=== PATIENT | female | born 1950 | race Caucasian/White ===

== ENCOUNTER → 2018-01-29 | Outpatient (CLI) | payer OTHER ==
[~2018-01-29] MED LIST: ANT25 PO; HARVONI PO; MAGN1TAB41 PO; MULT-506 PO
== END | disposition home or self-care (01) ==
LOC: C.PAPS 11:06
PROVIDERS: ATTEND Obstetrics & Gynecology
DX: Z12.4 Encounter for screening for malignant neoplasm of cervix (principal)

== ENCOUNTER → 2018-02-12 | Outpatient (CLI) | payer OTHER ==
--- NOTE | 2018-02-13 07:56 | MAMMOGRAPHY REPORT ---
BILATERAL DIGITAL SCREENING MAMMOGRAM TOMOSYNTHESIS WITH CAD: 02/12/2018 CLINICAL HISTORY: Routine screening. Patient has no complaints. TECHNIQUE: Breast tomosynthesis in addition to standard 2D mammography was performed. Current study was also evaluated with a Computer Aided Detection (CAD) system. COMPARISON: Comparison is made to exams dated: 11/23/2014 mammogram, 11/17/2013 mammogram, 11/11/2012 ma mmogram, 11/06/2011 mammogram, 11/09/2010 mammogram, and 11/09/2010 ultrasound - [facility] er. BREAST COMPOSITION: The tissue of both breasts is heterogeneously dense, which may obscure small mas ses. FINDINGS: There are scattered stable benign-appearing round, punctate and rodlike calcifications in t he breasts. No suspicious mass, architectural distortion or cluster of suspicious microcalcification s is seen. IMPRESSION: ACR BI-RADS CATEGORY 1: NEGATIVE There is no mammographic evidence of malignancy. A 1 year screening mammogram is recommended. The pa tient will receive written notification of the results. Approximately 10% of breast cancers are not detected with mammography. A negative mammographic report should not delay biopsy if a clinically suggestive mass is present. Leti Foley M.D. ay/:02/12/2018 15:39:37 Heat Seal Operator: Christina AMADOR(Sherin)(Antwan), [facility] letter sent: Normal 1/2 BI-RADS Code: ACR BI-RADS Category 1: Negative
== END | disposition home or self-care (01) ==
LOC: C.MAMM 14:06
PROVIDERS: ATTEND Family Medicine
DX: Z12.31 Encounter for screening mammogram for malignant neoplasm of breast (principal)

== ENCOUNTER 2025-01-06 13:07 | Inpatient (IN) ==
--- NOTE | 2025-01-06 13:44 | XRay Report ---
XR chest 1V not portable CLINICAL HISTORY: shortness of breath COMPARISON STUDY: 06/30/2024 FINDINGS: Heart size and pulmonary vasculature are normal. No effusion, consolidation, or pneumothora x. Stable scoliosis. IMPRESSION: No pneumonia seen. ACT 112: Negative or not required by law. Electronically signed by: Medardo Figueroa M.D. 01/06/2025 1:42 PM
[2025-01-06 13:48] LABS: Basophils # (auto) 0.05 K/uL (0.00-0.20); Basophils % (auto) 0.6 %; Hematocrit (blood only) 39.2 % (37.0-47.0); Hemoglobin 13.8 g/dl (12.0-16.0); Immature Granulocytes # (auto) 0.02 K/uL (0.01-0.20); Immature Granulocytes % (auto) 0.3 %; Lymphocytes # (auto) 1.14 K/uL (1.20-3.40); Lymphocytes % (auto) 14.5 %; Mean Corpuscular Hgb Conc 35.2 g/dL (32.0-36.0); Mean Corpuscular Volume 96.6 fL (80.0-100.0); Mean Platelet Volume 8.4 fL (9.4-12.4); Monocytes % (auto) 11.4 %; Neutrophils # (auto) 5.76 K/uL (1.40-6.50); Neutrophils % (auto) 73.2 %; Platelet Count 234 K/uL (130-400); RDW Coefficient of Variation 12.8 % (11.5-14.5); RDW Standard Deviation 45.8 fL (36.4-46.3); Red Blood Count 4.06 M/uL (4.20-5.40); White Blood Count 7.87 K/ul (4.8-10.8)
[2025-01-06 14:08] LABS: Albumin Globulin Ratio 1.5 (0.9-2); Albumin Level 4.3 gm/dl (3.4-5.0); BUN Creatinine Ratio 39.5 (10-20); Bilirubin,Total 0.8 mg/dl (0.2-1.0); Calcium 10.5 mg/dl (8.6-10.3); Creatinine Clr Calc Pharmacy 50.7 ml/min; Globulin 2.9 gm/dl (2.5-4.0); Potassium 3.6 mmol/L (3.5-5.1); Total Protein 7.2 gm/dl (6.0-8.3)
[2025-01-06 15:13] LABS: Troponin I High Sensitivity 256.7 pg/ml (0-14)
[2025-01-06 15:20] LABS: Base Excess VBG 6.6 mEq/L; HCO3 VBG 31 mmol/L; Oxygen Saturation VBG < 60.0 %; PCO2 VBG 44 mmHg (38-50); PO2 VBG 26 mmHg; pH VBG 7.46 (7.36-7.41)
[2025-01-06 15:30] LABS: Thyroid Stimulating Hormone 2.232 uIu/ml (0.300-4.500)
[2025-01-06] MEDS: SODIUM CHLORIDE 0.9% 1,000 ML IV ONE (15:35)
[2025-01-06 15:53] LABS: INR 0.9 (0.9-1.1); Partial Thromboplastin Ratio 0.9; Partial Thromboplastin Time 23 Seconds (21-31); Prothrombin Time 10.1 Seconds (9.0-12.0)
[2025-01-06 15:55] LABS: D Dimer 2270 ug/L FEU (0-500)
[2025-01-06] MEDS: OPTIRAY 320 125ml IV ONE (16:10)
--- NOTE | 2025-01-06 16:19 | CT Scan Report ---
EXAM: CT Head Without Intravenous Contrast INDICATION: Lethargic. Pain. Confusion. TECHNIQUE: Axial computed tomography images of the head/brain without intravenous contrast. Sagittal and/or coronal reformats are provided. Sagittal and coronal reformatted images were created and reviewed. This CT exam was performed using one or more of the following dose reduction techniques: automated exposure control, adjustment of the mA and/or kV according to patient size, and/or use of iterative reconstruction technique. COMPARISON: No relevant prior studies available. FINDINGS: Limitations: None. Brain and extra-axial spaces: There is age appropriate cortical atrophy and chronic ischemic periventricular white matter hypodensity. No acute infarct, hemorrhage or mass noted. Bones/joints: No acute changes. Soft tissues: No significant abnormality noted. Vasculature: No acute abnormality noted. Sinuses: No layering fluid in the visualized portions of the paranasal sinuses. Mastoid air cells: No mastoid effusion. Orbits: No significant abnormality noted. IMPRESSION: Cerebral atrophy. No acute changes. ACT 112: N/A Electronically signed by Rosa M Horton 01-06-2025 4:19 PM
[2025-01-06 16:28] LABS: Adenovirus PCR Not Detected (NotDetected); Bordetella parapertussis PCR Not Detected (NotDetected); Bordetella pertussis PCR Not Detected (NotDetected); Chlamydia pneumoniae PCR Not Detected (NotDetected); Coronavirus 229E PCR Not Detected (NotDetected); Coronavirus CoV-2 (COVID19)PCR Not Detected (NotDetected); Coronavirus HKU1 PCR Not Detected (NotDetected); Coronavirus NL63 PCR Not Detected (NotDetected); Coronavirus OC43PCR Not Detected (NotDetected); Human Metapneumovirus PCR Not Detected (NotDetected); Influenza A PCR Not Detected (NotDetected); Influenza B PCR Not Detected (NotDetected); Mycoplasma pneumoniae PCR Not Detected (NotDetected); Parainfluenza Virus 1 PCR Not Detected (NotDetected); Parainfluenza Virus 2 PCR Not Detected (NotDetected); Parainfluenza Virus 3 PCR Not Detected (NotDetected); Parainfluenza Virus 4 PCR Not Detected (NotDetected); Respiratory Syncytial VirusPCR Not Detected (NotDetected); Rhinovirus/Enterovirus PCR Not Detected (NotDetected)
--- NOTE | 2025-01-06 16:34 | CT Scan Report ---
EXAM: CT Angiography Chest With Intravenous Contrast INDICATION: Lethargic. Bilateral leg and right back pain. TECHNIQUE: Axial computed tomographic angiography images of the chest with intravenous contrast. Sagittal and coronal reformatted images were created and reviewed. This CT exam was performed using one or more of the following dose reduction techniques: automated exposure control, adjustment of the mA and/or kV according to patient size, and/or use of iterative reconstruction technique. MIP reconstructed images were created and reviewed. COMPARISON: 07/28/2024 FINDINGS: Pulmonary arteries: No abnormality noted. No pulmonary embolism. Aorta: The ascending aorta is dilated to 4.1 cm. The descending aorta is moderately ectatic. Scattered calcific plaque noted. No dissection. Lungs and pleural spaces: Mild scattered atelectasis noted. No confluent consolidation. No significant effusion. No pneumothorax. Heart: Stable cardiomegaly with left ventricular hypertrophy. No right heart strain. Stable small pericardial effusion. Bones/joints: Degenerative changes noted in the scoliotic spine. No acute osseous abnormality noted. Soft tissues: No abnormality noted. Lymph nodes: No abnormality noted. No enlarged lymph nodes. IMPRESSION: 1. No acute intrathoracic abnormality. 2. 4.1 cm dilatation of the ascending aorta without dissection. Appearance stable. ACT 112: N/A Electronically signed by Rosa M Horton 01-06-2025 4:33 PM
--- NOTE | 2025-01-06 16:38 | CT Scan Report ---
EXAM: CT Abdomen and Pelvis With Intravenous Contrast INDICATION: Lethargy. Leg pain. TECHNIQUE: Axial computed tomography images of the abdomen and pelvis with intravenous contrast. Sagittal and coronal reformatted images were created and reviewed. This CT exam was performed using one or more of the following dose reduction techniques: automated exposure control, adjustment of the mA and/or kV according to patient size, and/or use of iterative reconstruction technique. CONTRAST: 119ml of Optiray 320 was administered intravenously. COMPARISON: No relevant prior studies available. FINDINGS: Limitations: None. Lung bases: No abnormality noted. Pleural space: No visualized pleural effusion or pneumothorax. Heart: No abnormality noted. Mediastinum: No abnormality noted. ABDOMEN: Liver: No abnormality noted. Gallbladder and bile ducts: Small gallstones present. No ductal dilatation or stone. Pancreas: Homogeneous enhancement. No mass, inflammation or ductal dilation. Spleen: No significant abnormality noted. Adrenals: No significant abnormality noted. Kidneys and ureters: Normal enhancement. No mass, hydronephrosis or visualized stone. Stomach and bowel: Moderate amounts of stool throughout the colon. There is minimal small bowel stasis with some layering fluid and fecalized material. Scattered colonic diverticulosis noted. No obstruction, thickening or inflammatory process noted. PELVIS: Appendix: No findings to suggest acute appendicitis. Bladder: No filling defects to suggest mass or large stone. No inflammation. Reproductive: No abnormalities noted. ABDOMEN and PELVIS: Intraperitoneal space: No free air. No significant fluid collection. Bones/joints: Scoliotic degenerative spine. Soft tissues: There is a small paraesophageal hernia. Vasculature: Atherosclerotic calcification of the aorta and branches. No aneurysm. Lymph nodes: No pathologically enlarged lymph nodes. IMPRESSION: 1. Moderate amounts of colonic stool and scattered diverticulosis. No acute abnormality. 2. Cholelithiasis. ACT 112: N/A Electronically signed by Rosa M Horton 01-06-2025 4:38 PM
[2025-01-06] MEDS: SODIUM CHLORIDE 0.9% 1,000 ML IV SCH ×2 (16:49→21:40)
--- NOTE | 2025-01-06 17:45 | Emergency Department Note ---
History of Present Illness General Chief complaint: Illness Stated complaint: CRAMPS, ZOE HORSE, BACK PAIN Time Seen by Provider: 01/06/25 14:41 History of Present Illness Provider complaint: Illness Maximum Pain Intensity: 10 74-year-old female presents emergency department for illness. Patient states she fell asleep on Saturday and then woke up on Saturday. Patient reports that she did not mean to do this. She reports that since then she has been having myalgias weakness and difficulty breathing. She denies any melena hematochezia. No hemoptysis. No chest pain. No abdominal pain. Home Medications Medication Instructions Recorded Confirmed Type alendronate 70 mg tablet 70 mg PO WK 01/06/25 01/06/25 History irbesartan 150 mg tablet 150 mg PO DAILY 01/06/25 01/06/25 History Allergies Allergy/AdvReac Type Severity Reaction Status Date / Time codeine AdvReac Unknown CONSTIPATIO Verified 01/06/25 17:07 N Past Med/Surg History Problem List (Updated 01/06/25 @ 17:45 by Chance Avina MD) Elevated troponin (Acute) Rhabdomyolysis (Acute) Medical History No pertinent family history HTN (hypertension) Surgical History No pertinent past surgical history Social History Smoking Status: Former smoker Preferred Language: Setswana Feels Safe at Home: Yes Physical Exam Vital Signs Vital Signs - 24 hr 01/06/25 13:12 01/06/25 14:58 01/06/25 15:07 Temperature 37.1 C Temperature Source Temporal Artery Scan Pulse Rate 83 75 Pulse Rate [Apical] 62 Respiratory Rate 20 18 Respiratory Effort / Characteristics Non-Labored Spontaneous Non-Labored Respiratory Depth Normal Normal Respiratory Pattern Regular Regular Blood Pressure 120/79 Blood Pressure [Left Arm] 153/88 H Blood Pressure Mean 92 Blood Pressure Mean [Left Arm] 109 Blood Pressure Position [Left Arm] Sitting Pulse Oximetry 98 98 Oxygen Delivery Method Room Air Room Air Sepsis Recent Fever Within 48 Hours No Sepsis New/Unexplained Change in Mental Status N/A Sepsis Action Taken by Nursing No Action Required 01/06/25 17:12 Temperature Temperature Source Pulse Rate Pulse Rate [Apical] 74 Respiratory Rate 18 Respiratory Effort / Characteristics Respiratory Depth Normal Respiratory Pattern Blood Pressure Blood Pressure [Left Arm] 140/74 Blood Pressure Mean Blood Pressure Mean [Left Arm] 96 Blood Pressure Position [Left Arm] Pulse Oximetry 97 Oxygen Delivery Method Room Air Sepsis Recent Fever Within 48 Hours Sepsis New/Unexplained Change in Mental Status Sepsis Action Taken by Nursing Physical Exam GENERAL: oriented to person, place, and time. appears well-developed and well- nourished. HENT: Exam performed. - Head: Normocephalic and atraumatic. EYES: Conjunctivae and EOM are normal. Right eye exhibits no discharge. Left eye exhibits no discharge. No scleral icterus. NECK: Normal range of motion. Neck supple. No JVD present. CV: Normal rate, regular rhythm, normal heart sounds and intact distal pulses. There is no peripheral edema. Palpable radial pulses bue. PULM/CHEST: Effort normal and breath sounds normal. No respiratory distress. No stridor. no wheezes. no rales. ABD: The abdomen is soft. There is no tenderness. NEURO: Motor and sensation grossly intact. SKIN: Skin is warm and dry. He is not diaphoretic. PSYCH: normal mood and affect. Behavior is normal. Judgment and thought content normal. Course Course 1441: The patient was evaluated in room B7. A complete history and physical exam was performed Cardiac monitoring: An order was placed for continuous cardiac monitoring. The monitor shows a rate of 70 with sinus rhythm interpreted by ut 1555: Vital signs stable.Labs show white blood cell count of 7.87 hemoglobin 13.8 platelet count 234. D-dimer 2270. VBG unremarkable. AST 76 ALT 61 total creatinine kinase 1665 ammonia 12. High-sensitivity troponin 256.7. Patient not reporting any chest pain. Will obtain CT imaging. IV fluids started on the patient. 1640: Vital signs stable. Imaging shows a stable thoracic aortic aneurysm with no dissection. Otherwise unremarkable. Patient will be admitted to the [facility] hospitalist team. Administered Medications Sodium Chloride (Nss) 1,000 mls @ 125 mls/hr IV .Q8H MERCEDES Stop: 01/07/25 15:29 Last Admin: 01/06/25 16:49 Dose: 125 mls/hr Documented By: [facility] Discontinued Medications Sodium Chloride (Nss) 1,000 mls @ 999 mls/hr IV .Q1H1M ONE Stop: 01/06/25 16:26 Last Infusion: 01/06/25 17:05 Dose: Infused Documented By: Admin: 01/06/25 15:35 Dose: 999 mls/hr Documented By: MARIUSZ Ioversol (Optiray 320 125ml) 119 ml IV ONCE ONE Stop: 01/06/25 16:10 Last Admin: 01/06/25 16:10 Dose: 119 ml Documented By: BRADEN Medical Decision Making Laboratory Data Attestation: I reviewed the patient's lab results. 01/06/25 13:27 01/06/25 13:27 Lab Results 01/06/25 01/06/25 01/06/25 Range/Units 13:27 15:09 15:10 WBC 7.87 (4.8-10.8) K/ul RBC 4.06 L (4.20-5.40) M/uL Hgb 13.8 (12.0-16.0) g/dl Hct 39.2 (37.0-47.0) % MCV 96.6 (80.0-100.0) fL MCH 34.0 (25.0-34.0) pg MCHC 35.2 (32.0-36.0) g/dL RDW Std Deviation 45.8 (36.4-46.3) fL RDW Coeff of Laurie 12.8 (11.5-14.5) % Plt Count 234 (130-400) K/uL MPV 8.4 L (9.4-12.4) fL Immature Gran % (Auto) 0.3 % Neut % (Auto) 73.2 % Lymph % (Auto) 14.5 % Gladwin % (Auto) 11.4 % Eos % (Auto) 0.0 % Baso % (Auto) 0.6 % Neut # (Auto) 5.76 (1.40-6.50) K/uL Lymph # (Auto) 1.14 L (1.20-3.40) K/uL Gladwin # (Auto) 0.90 H (0.11-0.59) K/uL Eos # (Auto) 0.00 (0.00-0.50) K/uL Baso # (Auto) 0.05 (0.00-0.20) K/uL Immature Gran # (Auto) 0.02 (0.01-0.20) K/uL PT 10.1 (9.0-12.0) Seconds INR 0.9 (0.9-1.1) APTT 23 (21-31) Seconds PTT Ratio 0.9 D-Dimer Cancelled 2270 H* VBG pH 7.46 H (7.36-7.41) VBG pCO2 44 (38-50) mmHg VBG pO2 26 mmHg VBG HCO3 31 mmol/L VBG O2 Saturation < 60.0 % VBG Base Excess 6.6 mEq/L Sodium 137 (136-145) mmol/L Potassium 3.6 (3.5-5.1) mmol/L Chloride 103 (98-107) mmol/L Carbon Dioxide 27 (21-32) mmol/L Anion Gap 7 (3-11) BUN 34 H (6-23) mg/dl Creatinine 0.86 (0.6-1.2) mg/dl Est Cr Clr Drug Dosing 50.7 ml/min eGFR 69.97 BUN/Creatinine Ratio 39.5 H (10-20) Glucose 104 H (70-99(Fasting)) mg/dl Calcium 10.5 H (8.6-10.3) mg/dl Magnesium 2.0 (1.7-2.4) mg/dl Total Bilirubin 0.8 (0.2-1.0) mg/dl AST 76 H (13-39) U/L ALT 61 H (7-52) U/L Alkaline Phosphatase 47 (34-104) U/L Ammonia 12.0 L (18-72) umol/L Total Creatine Kinase 1665 H (26-192) U/L Troponin I High Sens 256.7 H* 237.8 H* (0-14) pg/ml Total Protein 7.2 (6.0-8.3) gm/dl Albumin 4.3 (3.4-5.0) gm/dl Globulin 2.9 (2.5-4.0) gm/dl Albumin/Globulin Ratio 1.5 (0.9-2) Lipase 35 (11-82) U/L TSH 2.232 (0.300-4.500) uIu/ml Adenovirus (PCR) Not Detected (NotDetected) B. pertussis DNA (PCR) Not Detected (NotDetected) B.parapertussis DNA PCR Not Detected (NotDetected) C. pneumoniae DNA (PCR) Not Detected (NotDetected) Coronavirus OC43 (PCR) Not Detected (NotDetected) Coronavirus HKU1 (PCR) Not Detected (NotDetected) Coronavirus 229E (PCR) Not Detected (NotDetected) SARS-CoV-2 (PCR) Not Detected (NotDetected) Coronavirus NL63 (PCR) Not Detected (NotDetected) Human Metapneumovir PCR Not Detected (NotDetected) Influenza Type A (PCR) Not Detected (NotDetected) Influenza Type B (PCR) Not Detected (NotDetected) M. pneumoniae (PCR) Not Detected (NotDetected) Parainfluenza 1 (PCR) Not Detected (NotDetected) Parainfluenza 2 (PCR) Not Detected (NotDetected) Parainfluenza 3 (PCR) Not Detected (NotDetected) Parainfluenza 4 (PCR) Not Detected (NotDetected) RSV (PCR) Not Detected (NotDetected) Entero/Rhino (PCR) Not Detected (NotDetected) Imaging Data Attestation: I personally reviewed and interpreted this imaging study as follows: My Impression: Chest x-ray negative. Airway clear. No pneumothorax. No consolidation. No cardiomegaly or cephalization.. No free air under the diaphragm. No fractures of the skeletal structures. Radiologist's Impression: Chest X-Ray 01/06/25 13:21 XR chest 1V not portable CLINICAL HISTORY: shortness of breath COMPARISON STUDY: 06/30/2024 FINDINGS: Heart size and pulmonary vasculature are normal. No effusion, consolidation, or pneumothorax. Stable scoliosis. IMPRESSION: No pneumonia seen. ACT 112: Negative or not required by law. Electronically signed by: Medardo Figueroa M.D. 01/06/2025 1:42 PM Abdomen/Pelvis CT 01/06/25 14:59 EXAM: CT Abdomen and Pelvis With Intravenous Contrast INDICATION: Lethargy. Leg pain. TECHNIQUE: Axial computed tomography images of the abdomen and pelvis with intravenous contrast. Sagittal and coronal reformatted images were created and reviewed. This CT exam was performed using one or more of the following dose reduction techniques: automated exposure control, adjustment of the mA and/or kV according to patient size, and/or use of iterative reconstruction technique. CONTRAST: 119ml of Optiray 320 was administered intravenously. COMPARISON: No relevant prior studies available. FINDINGS: Limitations: None. Lung bases: No abnormality noted. Pleural space: No visualized pleural effusion or pneumothorax. Heart: No abnormality noted. Mediastinum: No abnormality noted. ABDOMEN: Liver: No abnormality noted. Gallbladder and bile ducts: Small gallstones present. No ductal dilatation or stone. Pancreas: Homogeneous enhancement. No mass, inflammation or ductal dilation. Spleen: No significant abnormality noted. Adrenals: No significant abnormality noted. Kidneys and ureters: Normal enhancement. No mass, hydronephrosis or visualized stone. Stomach and bowel: Moderate amounts of stool throughout the colon. There is minimal small bowel stasis with some layering fluid and fecalized material. Scattered colonic diverticulosis noted. No obstruction, thickening or inflammatory process noted. PELVIS: Appendix: No findings to suggest acute appendicitis. Bladder: No filling defects to suggest mass or large stone. No inflammation. Reproductive: No abnormalities noted. ABDOMEN and PELVIS: Intraperitoneal space: No free air. No significant fluid collection. Bones/joints: Scoliotic degenerative spine. Soft tissues: There is a small paraesophageal hernia. Vasculature: Atherosclerotic calcification of the aorta and branches. No aneurysm. Lymph nodes: No pathologically enlarged lymph nodes. IMPRESSION: 1. Moderate amounts of colonic stool and scattered diverticulosis. No acute abnormality. 2. Cholelithiasis. ACT 112: N/A Electronically signed by Rosa M Horton 01-06-2025 4:[address] 01/06/25 14:59 EXAM: CT Head Without Intravenous Contrast INDICATION: Lethargic. Pain. Confusion. TECHNIQUE: Axial computed tomography images of the head/brain without intravenous contrast. Sagittal and/or coronal reformats are provided. Sagittal and coronal reformatted images were created and reviewed. This CT exam was performed using one or more of the following dose reduction techniques: automated exposure control, adjustment of the mA and/or kV according to patient size, and/or use of iterative reconstruction technique. COMPARISON: No relevant prior studies available. FINDINGS: Limitations: None. Brain and extra-axial spaces: There is age appropriate cortical atrophy and chronic ischemic periventricular white matter hypodensity. No acute infarct, hemorrhage or mass noted. Bones/joints: No acute changes. Soft tissues: No significant abnormality noted. Vasculature: No acute abnormality noted. Sinuses: No layering fluid in the visualized portions of the paranasal sinuses. Mastoid air cells: No mastoid effusion. Orbits: No significant abnormality noted. IMPRESSION: Cerebral atrophy. No acute changes. ACT 112: N/A Electronically signed by Rosa M Horton 01-06-2025 4:19 PM Chest CTA 01/06/25 15:55 EXAM: CT Angiography Chest With Intravenous Contrast INDICATION: Lethargic. Bilateral leg and right back pain. TECHNIQUE: Axial computed tomographic angiography images of the chest with intravenous contrast. Sagittal and coronal reformatted images were created and reviewed. This CT exam was performed using one or more of the following dose reduction techniques: automated exposure control, adjustment of the mA and/or kV according to patient size, and/or use of iterative reconstruction technique. MIP reconstructed images were created and reviewed. COMPARISON: 07/28/2024 FINDINGS: Pulmonary arteries: No abnormality noted. No pulmonary embolism. Aorta: The ascending aorta is dilated to 4.1 cm. The descending aorta is moderately ectatic. Scattered calcific plaque noted. No dissection. Lungs and pleural spaces: Mild scattered atelectasis noted. No confluent consolidation. No significant effusion. No pneumothorax. Heart: Stable cardiomegaly with left ventricular hypertrophy. No right heart strain. Stable small pericardial effusion. Bones/joints: Degenerative changes noted in the scoliotic spine. No acute osseous abnormality noted. Soft tissues: No abnormality noted. Lymph nodes: No abnormality noted. No enlarged lymph nodes. IMPRESSION: 1. No acute intrathoracic abnormality. 2. 4.1 cm dilatation of the ascending aorta without dissection. Appearance stable. ACT 112: N/A Electronically signed by Rosa M Horton 01-06-2025 4:33 PM ECG Data Attestation: I personally reviewed and interpreted this ECG as follows: Rate (beats per minute): 68 Rhythm: + normal sinus ECG Intervals/blocks: + Normal QRS, + Normal TX and + Normal QT-c ECG ST segments: + Normal ST segments [facility] Narrative 1441: The patient was evaluated in room B7. A complete history and physical exam was performed Cardiac monitoring: An order was placed for continuous cardiac monitoring. The monitor shows a rate of 70 with sinus rhythm interpreted by me 1555: Vital signs stable.Labs show white blood cell count of 7.87 hemoglobin 13.8 platelet count 234. D-dimer 2270. VBG unremarkable. AST 76 ALT 61 total creatinine kinase 1665 ammonia 12. High-sensitivity troponin 256.7. Patient not reporting any chest pain. Will obtain CT imaging. IV fluids started on the patient. 1640: Vital signs stable. Imaging shows a stable thoracic aortic aneurysm with no dissection. Otherwise unremarkable. [facility] & Plan Rhabdomyolysis, Elevated troponin Discharge Plan Visit Data Chief Complaint: Illness Stated Complaint: CRAMPS, ZOE HORSE, BACK PAIN ED Provider: Chance Avina Discharge Problem: Rhabdomyolysis, Elevated troponin Patient Disposition: Admitted As Inpatient Forms Stand Alone Forms: My [facility] Prescriptions Prescriptions: No Action alendronate 70 mg tablet 70 mg PO WK irbesartan 150 mg tablet 150 mg PO DAILY Referrals Referrals: Vitor Jiang DO [Primary Care Provider] -
[2025-01-06 18:03] LABS: Appearance Urine Clear (Clear); Bilirubin Urine Negative (Negative); Blood Urine 1+ (Negative); Color Urine Yellow; Glucose Urine UA Negative (Negative); Ketones Urine Trace (Negative); Leukocyte Esterase Urine Negative (Negative); Nitrite Urine Negative (Negative); Protein Urine Negative (Negative); Urobilinogen Urine Negative (Negative); pH Urine 5.5 (4.5-7.5)
[2025-01-06 18:16] LABS: Bacteria Urine None Seen (None Seen); Bacteria Urine Automated None Seen (Negative); Hyaline Casts Urine 0 /lpf (None Presnt); WBC Urine 0-5 /hpf (0-5)
[2025-01-06 18:18] LABS: Amphetamines+Metham, Urine Neg (Neg); Barbiturates, Urine Neg (Neg); Benzodiazepine, Urine Neg (Neg); Cocaine, Urine Neg (Neg); Fentanyl, Urine Neg (Neg); MDMA (Ecstacy), Urine Neg (Neg); Marijuana, Urine Pos (Neg); Methadone, Urine Neg (Neg); Opiate, Urine Neg (Neg); Phencyclidine, Urine Neg (Neg)
--- NOTE | 2025-01-06 18:29 | History & Physical Report ---
Date of Service January 06, 2025 Assessment & Plan (1) Rhabdomyolysis: (2) Elevated troponin: (3) Elevated d-dimer: (4) Cholelithiasis: Plan #Rhabdomyolysis - 2/2 to lying on bed for 3 days -CMP on admission: Na 137 K 3.6 cl_103 BUN 34 CR 0.86 AST 76 ALT 61 Alk phosp 47 -Plt : 234 - Creatine Kinase: 1665 -UA: 3-5 RBC , no wbc; Urine PH 5.5 -VBG PH 7.46 rest normal Plan -Strict I/o -Daily CK -Daily UA with PH >8 - Normal saline 200ml/hr upto 3L #Transamnitis -AST 76 ALT 61 Alk phosp 47 -2/2 to Rhabdomyolysis -will repeat labs daily # Elevated Troponin -Troponin: 237.8 -Patient denies chest pain -ECG : No acute changes -Monitor on telemetry -Troponin downgrading; Will repeat next in 6 hour #Elevated D Dimer -D dimer: 2270 - CTA: No pulmonary Embolism, 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 #Cholelithiasis -CT (A+P) shows small gallstones. No ductal dilation or stone. -Patient is asymptomatic -No intervention needed now #urine tox positive for marijuana - She takes medical marijuana since the age of 15. According to her, she was taking same formulation and same dose. Chronic conditions Hypertension: Hold Irbesartan for now Osteoporosis: Continue Alendronate Dispo: Med/Surg with telemetry Code: DNR/DNI VTE prophylaxis: encourage Ambulation History of Present Illness Primary Care Provider: DO Yashira Khan is a 74 Y O Female with PMH of Hypertension and Osteoporosis . She mentioned that she went to bed on Saturday at 10 PM and woke up on Saturday afternoon 2 PM. She live by herself at home. She mentions she was in her usual state of health before going to bed. She denies dizziness, chest pain or weakness before sleep. She woke up once but went back to sleep immediately. When she woke up she felt lightheadedness, weak ,dizzy , back pain and had bilateral leg cramps after this event. She has bruise in her right arm but she doesn't remember about how it happened.She mentioned she had bowel movement in t he commode when she woke up but she doesn't remember going to the bathroom. Patient drove to the hospital herself. She denies Chest pain, abdominal pain, nausea and vomiting . Her back is hurting. She is well oriented to time, place and person. She has been using medical marijuana since she was 15. Allergies Allergy/AdvReac Type Severity Reaction Status Date / Time codeine AdvReac Unknown CONSTIPATIO Verified 01/06/25 17:07 N Home Medications Medication Instructions Recorded Confirmed Type alendronate 70 mg tablet 70 mg PO WK 01/06/25 01/06/25 History irbesartan 150 mg tablet 150 mg PO DAILY 01/06/25 01/06/25 History Past Med/Surg History Problem List Cholelithiasis Elevated d-dimer Elevated troponin (Acute) Rhabdomyolysis (Acute) Medical History No pertinent family history HTN (hypertension) Surgical History No pertinent past surgical history Social History Smoking Status: Former smoker Tobacco Type: Cigarettes Smoking End Date: 2014; Hx Alcohol Use: Yes Alcohol type: wine Hx Substance Use: Yes Last Used Substance: Days (ago) Last Used Substance Other:: 01/01/25 Preferred Language: Nepali Communication Ability: Effective T[employer] Layout Required: No Beliefs That Will Affect Care: None Current Living Situation: Alone Other Information That Helps Us Care for You: No Feels Safe at Home: Yes Safety Concerns: Feels Safe At This Time Assistive Devices: Glasses Review of Systems Review of Systems: As per HPI Physical Exam Constitutional: WD/WN, vitals as above well developed; no acute distress Eyes: PERRL, conjunctivae normal, anicteric sclerae ENMT: external ear and nose normal, oropharynx normal Ears: no hearing impairment Neck: trachea midline, no thyromegaly trachea midline Respiratory: normal respiratory effort, lungs clear to auscultation normal respiratory effort and + respiratory distress; no labored breathing and no retractions Auscultation: lungs clear to auscultation bilaterally Cardiovascular: RRR, no murmur, no edema Rate/Rhythm: regular rate and regular rhythm Chest (Breasts): normal inspection/palpation of breasts Chest: normal inspection of chest Results & Data Results & Data Vital Signs (Past 12 Hours) Vital Signs Temp Pulse Pulse Resp BP BP Pulse Ox 01/06/25 17:12 74 18 140/74 97 01/06/25 15:07 62 18 153/88 H 98 01/06/25 14:58 75 01/06/25 13:12 37.1 C 83 20 120/79 98 O2 Del Method 01/06/25 17:12 Room Air 01/06/25 15:07 Room Air 01/06/25 14:58 01/06/25 13:12 Room Air Laboratory Results Laboratory Results WBC 7.87 K/ul (4.8-10.8) 01/06/25 13:27 RBC 4.06 M/uL (4.20-5.40) L 01/06/25 13:27 Hgb 13.8 g/dl (12.0-16.0) 01/06/25 13:27 Hct 39.2 % (37.0-47.0) 01/06/25 13:27 MCV 96.6 fL (80.0-100.0) 01/06/25 13:27 MCH 34.0 pg (25.0-34.0) 01/06/25 13:27 MCHC 35.2 g/dL (32.0-36.0) 01/06/25 13:27 RDW Std Deviation 45.8 fL (36.4-46.3) 01/06/25 13:27 RDW Coeff of Laurie 12.8 % (11.5-14.5) 01/06/25 13:27 Plt Count 234 K/uL (130-400) 01/06/25 13:27 MPV 8.4 fL (9.4-12.4) L 01/06/25 13:27 Immature Gran % (Auto) 0.3 % 01/06/25 13:27 Neut % (Auto) 73.2 % 01/06/25 13:27 Lymph % (Auto) 14.5 % 01/06/25 13:27 [place] % (Auto) 11.4 % 01/06/25 13:27 Eos % (Auto) 0.0 % 01/06/25 13:27 Baso % (Auto) 0.6 % 01/06/25 13:27 Neut # (Auto) 5.76 K/uL (1.40-6.50) 01/06/25 13:27 Lymph # (Auto) 1.14 K/uL (1.20-3.40) L 01/06/25 13:27 [place]estone # (Auto) 0.90 K/uL (0.11-0.59) H 01/06/25 13:27 Eos # (Auto) 0.00 K/uL (0.00-0.50) 01/06/25 13:27 Baso # (Auto) 0.05 K/uL (0.00-0.20) 01/06/25 13:27 Immature Gran # (Auto) 0.02 K/uL (0.01-0.20) 01/06/25 13:27 PT 10.1 Seconds (9.0-12.0) 01/06/25 15:09 INR 0.9 (0.9-1.1) 01/06/25 15:09 APTT 23 Seconds (21-31) 01/06/25 15:09 PTT Ratio 0.9 01/06/25 15:09 D-Dimer 2270 ug/L FEU (0-500) H* 01/06/25 15:09 VBG pH 7.46 (7.36-7.41) H 01/06/25 15:09 VBG pCO2 44 mmHg (38-50) 01/06/25 15:09 VBG pO2 26 mmHg 01/06/25 15:09 VBG HCO3 31 mmol/L 01/06/25 15:09 VBG O2 Saturation < 60.0 % 01/06/25 15:09 VBG Base Excess 6.6 mEq/L 01/06/25 15:09 Sodium 137 mmol/L (136-145) 01/06/25 13:27 Potassium 3.6 mmol/L (3.5-5.1) 01/06/25 13:27 Chloride 103 mmol/L (98-107) 01/06/25 13:27 Carbon Dioxide 27 mmol/L (21-32) 01/06/25 13:27 Anion Gap 7 (3-11) 01/06/25 13:27 BUN 34 mg/dl (6-23) H 01/06/25 13:27 Creatinine 0.86 mg/dl (0.6-1.2) 01/06/25 13:27 Est Cr Clr Drug Dosing 50.7 ml/min 01/06/25 13:27 eGFR 69.97 01/06/25 13:27 BUN/Creatinine Ratio 39.5 (10-20) H 01/06/25 13:27 Glucose 104 mg/dl (70-99(Fasting)) H 01/06/25 13:27 Calcium 10.5 mg/dl (8.6-10.3) H 01/06/25 13:27 Magnesium 2.0 mg/dl (1.7-2.4) 01/06/25 13:27 Total Bilirubin 0.8 mg/dl (0.2-1.0) 01/06/25 13:27 AST 76 U/L (13-39) H 01/06/25 13:27 ALT 61 U/L (7-52) H 01/06/25 13:27 Alkaline Phosphatase 47 U/L (34-104) 01/06/25 13:27 Ammonia 12.0 umol/L (18-72) L 01/06/25 15:09 Total Creatine Kinase 1665 U/L (26-192) H 01/06/25 13:27 Troponin I High Sens 277.4 pg/ml (0-14) H* 01/06/25 20:53 Total Protein 7.2 gm/dl (6.0-8.3) 01/06/25 13:27 Albumin 4.3 gm/dl (3.4-5.0) 01/06/25 13:27 Globulin 2.9 gm/dl (2.5-4.0) 01/06/25 13:27 Albumin/Globulin Ratio 1.5 (0.9-2) 01/06/25 13:27 Lipase 35 U/L (11-82) 01/06/25 13:27 TSH 2.232 uIu/ml (0.300-4.500) 01/06/25 13:27 Urine Color Yellow 01/06/25 Unknown Urine Appearance Clear (Clear) 01/06/25 Unknown Urine pH 5.5 (4.5-7.5) 01/06/25 Unknown Ur Specific [place] 1.010 (1.000-1.030) 01/06/25 Unknown Urine Protein Negative (Negative) 01/06/25 Unknown Urine Glucose (UA) Negative (Negative) 01/06/25 Unknown Urine Ketones Trace (Negative) H 01/06/25 Unknown Urine Blood 1+ (Negative) H 01/06/25 Unknown Urine Nitrite Negative (Negative) 01/06/25 Unknown Urine Bilirubin Negative (Negative) 01/06/25 Unknown Urine Urobilinogen Negative (Negative) 01/06/25 Unknown Ur Leukocyte Esterase Negative (Negative) 01/06/25 Unknown Urine Bacteria (Auto) None Seen (Negative) 01/06/25 Unknown Urine RBC 3-5 /hpf (0-2) H 01/06/25 Unknown Urine WBC 0-5 /hpf (0-5) 01/06/25 Unknown Ur Epithelial Cells 3-5 /hpf (0-2) H 01/06/25 Unknown Urine Bacteria None Seen (None Seen) 01/06/25 Unknown Hyaline Casts 0 /lpf (None Presnt) 01/06/25 Unknown Urine Opiates Screen Neg (Neg) 01/06/25 Unknown Ur Methadone, Qual Neg (Neg) 01/06/25 Unknown Urine Fentanyl Screen Neg (Neg) 01/06/25 Unknown Urine Barbiturates Neg (Neg) 01/06/25 Unknown Ur Phencyclidine (PCP) Neg (Neg) 01/06/25 Unknown U Amphetamin/Meth Scrn Neg (Neg) 01/06/25 Unknown MDMA (Ecstasy) Screen Neg (Neg) 01/06/25 Unknown U Benzodiazepines Scrn Neg (Neg) 01/06/25 Unknown Ur Cocaine Metabolite Neg (Neg) 01/06/25 Unknown U Marijuana (THC) Screen Pos (Neg) H 01/06/25 Unknown Adenovirus (PCR) Not Detected (NotDetected) 01/06/25 15:10 B. pertussis DNA (PCR) Not Detected (NotDetected) 01/06/25 15:10 B.parapertussis DNA PCR Not Detected (NotDetected) 01/06/25 15:10 C. pneumoniae DNA (PCR) Not Detected (NotDetected) 01/06/25 15:10 Coronavirus OC43 (PCR) Not Detected (NotDetected) 01/06/25 15:10 Coronavirus HKU1 (PCR) Not Detected (NotDetected) 01/06/25 15:10 Coronavirus 229E (PCR) Not Detected (NotDetected) 01/06/25 15:10 SARS-CoV-2 (PCR) Not Detected (NotDetected) 01/06/25 15:10 Coronavirus NL63 (PCR) Not Detected (NotDetected) 01/06/25 15:10 Human Metapneumovir PCR Not Detected (NotDetected) 01/06/25 15:10 Influenza Type A (PCR) Not Detected (NotDetected) 01/06/25 15:10 Influenza Type B (PCR) Not Detected (NotDetected) 01/06/25 15:10 M. pneumoniae (PCR) Not Detected (NotDetected) 01/06/25 15:10 Parainfluenza 1 (PCR) Not Detected (NotDetected) 01/06/25 15:10 Parainfluenza 2 (PCR) Not Detected (NotDetected) 01/06/25 15:10 Parainfluenza 3 (PCR) Not Detected (NotDetected) 01/06/25 15:10 Parainfluenza 4 (PCR) Not Detected (NotDetected) 01/06/25 15:10 RSV (PCR) Not Detected (NotDetected) 01/06/25 15:10 Entero/Rhino (PCR) Not Detected (NotDetected) 01/06/25 15:10 Impressions Chest X-Ray 01/06/25 13:21 XR chest 1V not portable CLINICAL HISTORY: shortness of breath COMPARISON STUDY: 06/30/2024 FINDINGS: Heart size and pulmonary vasculature are normal. No effusion, consolidation, or pneumothorax. Stable scoliosis. IMPRESSION: No pneumonia seen. ACT 112: Negative or not required by law. Electronically signed by: Medardo Figueroa M.D. 01/06/2025 1:42 PM Abdomen/Pelvis CT 01/06/25 14:59 EXAM: CT Abdomen and Pelvis With Intravenous Contrast INDICATION: Lethargy. Leg pain. TECHNIQUE: Axial computed tomography images of the abdomen and pelvis with intravenous contrast. Sagittal and coronal reformatted images were created and reviewed. This CT exam was performed using one or more of the following dose reduction techniques: automated exposure control, adjustment of the mA and/or kV according to patient size, and/or use of iterative reconstruction technique. CONTRAST: 119ml of Optiray 320 was administered intravenously. COMPARISON: No relevant prior studies available. FINDINGS: Limitations: None. Lung bases: No abnormality noted. Pleural space: No visualized pleural effusion or pneumothorax. Heart: No abnormality noted. Mediastinum: No abnormality noted. ABDOMEN: Liver: No abnormality noted. Gallbladder and bile ducts: Small gallstones present. No ductal dilatation or stone. Pancreas: Homogeneous enhancement. No mass, inflammation or ductal dilation. Spleen: No significant abnormality noted. Adrenals: No significant abnormality noted. Kidneys and ureters: Normal enhancement. No mass, hydronephrosis or visualized stone. Stomach and bowel: Moderate amounts of stool throughout the colon. There is minimal small bowel stasis with some layering fluid and fecalized material. Scattered colonic diverticulosis noted. No obstruction, thickening or inflammatory process noted. PELVIS: Appendix: No findings to suggest acute appendicitis. Bladder: No filling defects to suggest mass or large stone. No inflammation. Reproductive: No abnormalities noted. ABDOMEN and PELVIS: Intraperitoneal space: No free air. No significant fluid collection. Bones/joints: Scoliotic degenerative spine. Soft tissues: There is a small paraesophageal hernia. Vasculature: Atherosclerotic calcification of the aorta and branches. No aneurysm. Lymph nodes: No pathologically enlarged lymph nodes. IMPRESSION: 1. Moderate amounts of colonic stool and scattered diverticulosis. No acute abnormality. 2. Cholelithiasis. ACT 112: N/A Electronically signed by Rosa M Horton 01-06-2025 4:[address] 01/06/25 14:59 EXAM: CT Head Without Intravenous Contrast INDICATION: Lethargic. Pain. Confusion. TECHNIQUE: Axial computed tomography images of the head/brain without intravenous contrast. Sagittal and/or coronal reformats are provided. Sagittal and coronal reformatted images were created and reviewed. This CT exam was performed using one or more of the following dose reduction techniques: automated exposure control, adjustment of the mA and/or kV according to patient size, and/or use of iterative reconstruction technique. COMPARISON: No relevant prior studies available. FINDINGS: Limitations: None. Brain and extra-axial spaces: There is age appropriate cortical atrophy and chronic ischemic periventricular white matter hypodensity. No acute infarct, hemorrhage or mass noted. Bones/joints: No acute changes. Soft tissues: No significant abnormality noted. Vasculature: No acute abnormality noted. Sinuses: No layering fluid in the visualized portions of the paranasal sinuses. Mastoid air cells: No mastoid effusion. Orbits: No significant abnormality noted. IMPRESSION: Cerebral atrophy. No acute changes. ACT 112: N/A Electronically signed by Rosa M Horton 01-06-2025 4:19 PM Chest CTA 01/06/25 15:55 EXAM: CT Angiography Chest With Intravenous Contrast INDICATION: Lethargic. Bilateral leg and right back pain. TECHNIQUE: Axial computed tomographic angiography images of the chest with intravenous contrast. Sagittal and coronal reformatted images were created and reviewed. This CT exam was performed using one or more of the following dose reduction techniques: automated exposure control, adjustment of the mA and/or kV according to patient size, and/or use of iterative reconstruction technique. MIP reconstructed images were created and reviewed. COMPARISON: 07/28/2024 FINDINGS: Pulmonary arteries: No abnormality noted. No pulmonary embolism. Aorta: The ascending aorta is dilated to 4.1 cm. The descending aorta is moderately ectatic. Scattered calcific plaque noted. No dissection. Lungs and pleural spaces: Mild scattered atelectasis noted. No confluent consolidation. No significant effusion. No pneumothorax. Heart: Stable cardiomegaly with left ventricular hypertrophy. No right heart strain. Stable small pericardial effusion. Bones/joints: Degenerative changes noted in the scoliotic spine. No acute osseous abnormality noted. Soft tissues: No abnormality noted. Lymph nodes: No abnormality noted. No enlarged lymph nodes. IMPRESSION: 1. No acute intrathoracic abnormality. 2. 4.1 cm dilatation of the ascending aorta without dissection. Appearance stable. ACT 112: N/A Electronically signed by Rosa M Horton 01-06-2025 4:33 PM ECG Additional Comments: DICTATED BY: Sony Trujillo MD Test Reason : Blood Pressure : */* mmHG Vent. Rate : 68 BPM Atrial Rate : 68 BPM P-R Int : 144 ms QRS Dur : 84 ms QT Int : 374 ms P-R-T Axes : -19 -5 37 degrees QTcB Int : 397 ms Normal sinus rhythm Septal infarct , age undetermined Abnormal ECG When compared with ECG of 07-Jun-2015 09:24, Nonspecific T wave abnormality now evident in Anterior leads Confirmed by Sony Trujillo ([id number]) on 01/06/2025 10:17:54 PM Referred By: Confirmed By: Sony Trujillo Signed By: 01/06/25 [id number] Dictated: 01/06/25 1324 Transcribed: Absorber Operator: The status of this report is Signed. Draft = Not yet reviewed or approved by Medical Physician. Signed = Reviewed and approved by Medical Physician. Supervising Physician Co-Signing Physician Notes Patient seen and examined, chart reviewed, case discussed with Dr. Goyal and I agree with the assessment and plan as above. As above, patient went to bed on Saturday and woke up on Saturday. Has no recollection of the time spent in bed. She reports some back pain now and was initially dizzy when she woke up. She a lso reports some sores on the side of her tongue when she woke up. Otherwise no complaints, no chest pain On exam she is afebrile, HD stable Skin - no rash, no bruising HEENT - NC/AT, PERRL, EOMI, MMM, neck supple Heart - +S1/S2, regular, no m/r/g Lungs - CTA, no rales/rhonchi/wheezes Abd - soft, NT/ND Ext - warm, well perfused Pain in right back Labs and images reviewed [id number] CTA without PE [id number] Cchd=[id number] --> 237 --> 277 No acute osseous abnormalities noted on CT of the chest Assessment/Plan Cause of episode unclear. Patient reports she was in her usual state of health prior to going to bed. Consider seizure with post-ictal time? No history of such. Consider effects of marijuana use although patient reports she has used the same formula with no prior issues -IVF for rhabdomyolysis -Repeat CK -Check 2D echo, elevated troponin -Remainder as above
[2025-01-06] MEDS ORDERED: MAGNESIUM HYDROXIDE SUSP 30 ML UDC PO PRN (19:29)
[2025-01-06] MEDS ORDERED: ALUMINUM/MAGNESIUM SUSP 30 ML UDC PO PRN (19:29)
[2025-01-06] MEDS ORDERED: POLYETHYLENE (MIRALAX) 17 GM PACK PO PRN (19:29)
[2025-01-06] MEDS ORDERED: ONDANSETRON INJ 2 MG/ML 2 ML VIAL IV PRN (19:29)
--- NOTE | 2025-01-06 22:18 | Electrocardiogram Report ---
Test Reason : Blood Pressure : */* mmHG Vent. Rate : 68 BPM Atrial Rate : 68 BPM P-R Int : 144 ms QRS Dur : 84 ms QT Int : 374 ms P-R-T Axes : -19 -5 37 degrees QTcB Int : 397 ms Normal sinus rhythm Septal infarct , age undetermined Abnormal ECG When compared with ECG of 07-Jun-2015 09:24, Nonspecific T wave abnormality now evident in Anterior leads Confirmed by Sony Trujlilo ([id number]) on 01/06/2025 10:17:54 PM Referred By: Confirmed By: Sony Trujillo
--- NOTE | 2025-01-06 23:23 | Billing Data ---
Date of Service January 06, 2025 Coding Level of Care Code 01645 INT INP/OBS CARE
--- OUTSIDE RECORDS SUMMARY | 2025-01-07 01:50 | External Medical Summary | Continuity of Care Document ---
Author Name Unknown Organization [address] [place] [address] [id number] Care Team Providers Care Site Safety Representative Name Role Phone Vitor Jiang Primary Care Physician [phone] Encounter [facility] [id number] Date(s): 12/22/24 - 12/22/24 [facility] 1849 [facility] 207 [facility] [address] [address] [phone] Encounter Diagnosis Body mass index [BMI] 26.0-26.9, adult(Discharge Diagnosis) - 12/22/24 Benign essential HTN(Discharge Diagnosis) - 12/22/24 IFG (impaired fasting glucose)(Discharge Diagnosis) - 12/22/24 Fatigue(Discharge Diagnosis) - 12/22/24 Weight loss(Discharge Diagnosis) - 12/22/24 Osteoporosis(Discharge Diagnosis) - 12/22/24 Osteopenia(Discharge Diagnosis) - 12/22/24 Discharge Disposition: Home or Self Care Attending Physician: DO Jiang Franklin J Encounter Type: Clinic Allergies, Adverse Reactions, Alerts Substance Criticality Severity Reaction Reaction Severity Status codeine constipation Active cephalexin Sulfamethoxazol e 500 mg oral tablet Sulfamethoxazole 500 mg oral tablet Sulfamethoxazole 500 mg oral tablet Sulfamethoxazole 500 mg oral tablet nausea and vomiting Active sulfamethoxazole-t rimethoprim nausea and vomiting Active Assessment and Plan Extracted from: Title:6 month routine Author:DO Jiang Frankli n J Date:12/22/24 Impression and Plan Diagnosis Weight loss (ZGX04-KC R63.4, Discharge, Medical). Osteoporosis (SRB91-BB M81.0, Discharge, Medical). IFG (impaired fasting glucose) (DBN40-MQ R73.01, Discharge, Medical). Benign essential HTN ([id number]-NX I10, Discharge, Medical). Fatigue (ZMF82-AY R53.83, Discharge, Medical). Plan: Weight loss, unintentional This has leveled off; likely related to combination of issues with dentition and stress related to the health of her mother Fortunately, workup was unremarkable CBC, CMP, TSH done in the spring were unremarkable Colonoscopy done about 3 years ago without polyps Chest x-ray led to a CT scan of the chest which was unremarkable (chest x-ray with artifactual finding) Mammogram recently completed was unremarkable No distinct upper GI symptoms (reflux or dysphagia) She does have some difficulty with dentition which may be contributing to her weight loss Continue to monitor Hypertension Well-controlled on current medications BMP shows preserved renal function and normal serum potassium Aortic widening (aortic root 4.2 cm) Sclerotic trileaflet aortic valve with trace aortic insufficiency Echocardiogram from the spring reviewed She has 1 year follow-up with cardiology scheduled Osteoporosis Continue alendronate (bisphosphonate start date 12/05/2021; anticipated discontinuation 2026) Last DEXA scan was in Mar, 2022 DEXA scan scheduled Fatigue Check CBC and iron studies. Orders [facility] Radiology: BD Bone Density DEXA Axial Skeleton (Order): *Est. 12/22/2024, Routine, osteoporosis, Order for future visit, Osteoporosis, Exam to be performed outside organization?, [facility]. [facility] Laboratory: Hemoglobin A1C Request (Order): Routine, 12/22/2024 10:29 EST, Requested Timeframe 1 Week Prior to Next Visit BMP Request (Order): Routine, 12/22/2024 10:29 EST, Requested Timeframe 1 Week Prior to Next Visit Ferritin Request (Order): Routine, 12/22/2024 10:29 EST, Requested Timeframe 1 Week Prior to Next Visit Iron Level Request (Order): Routine, 12/22/2024 10:28 EST, Requested Timeframe 1 Week Prior to Next Visit CBC w Platelets and Diff Request (Order): Routine, 12/22/2024 10:28 EST, Requested Timeframe 1 Week Prior to Next Visit Evaluation and Management: [id number] Outpatient Visit Est Lvl 4 (Order): 12/22/2024 10:29 EST, FAMILY MEDICINE, Benign essential HTN | IFG (impaired fasting glucose) | Weight loss | Osteoporosis. [facility] Patient Care Ambulatory: Follow Up Appointment Ambulatory (Order): In 6 Months, Appointment Type Patient Preference, 40, Follow up With DO Jiang Franklin J. Immunizations Given and Recorded Vaccine Date Status Refusal Reason influenza virus vaccine, inactivated 08/10/24 Igor rded influenza virus vaccine, inactivated 08/23/23 Igor rded influenza virus vaccine, inactivated 1 08/08/22 Re corded influenza virus vaccine, inactivated 08/15/21 Give n influenza virus vaccine, inactivated 09/15/20 Give n influenza virus vaccine, inactivated 07/29/19 Give n influenza virus vaccine, inactivated 07/22/12 Give n SARS-CoV-2 (COVID-19) mRNA-vacc - [id number] 08/10/24 Recorded SARS-CoV-2 (COVID-19) mRNA-vacc - [id number] 10/04/23 Recorded tetanus/diphtheria/pertuss, acel (Tdap) 04/25/24 R ecorded tetanus/diphtheria/pertuss, acel (Tdap) 07/08/13 G iven RSV vaccine preF3, recombinant 08/23/23 Recorded SARS-CoV-2 mRNA (tozinameran 5y-11y) 2 08/08/22 Re corded SARS-CoV-2 mRNA (tozinameran 5y-11y) 3 02/05/22 Re corded SARS-CoV-2 mRNA (tozinameran 5y-11y) 4 09/25/21 Re corded pneumococcal 23-valent vaccine 5 12/06/21 Recorded SARS-CoV-2 (COVID-19) mRNA BNT-162b2 vax 6 03/02/21 Recorded SARS-CoV-2 (COVID-19) mRNA BNT-162b2 vax 7 02/09/21 Recorded pneumococcal 13-valent vaccine 02/28/15 Given zoster vaccine live 10/15/12 Recorded zoster vaccine live 10/10/11 Given hepatitis A-hepatitis B vaccine 05/09/07 Recorded hepatitis A-hepatitis B vaccine 01/06/07 Recorded hepatitis A-hepatitis B vaccine 11/11/06 Recorded tetanus toxoids-diphtheria, Td (Adult) 8 03/04/02 Recorded 1Result Comment: [facility] 2Result Comment: [facility] 3Result Comment: [facility] 4Result Comment: [facility] 5Result Comment: leeann garibay ronn greco 6Result Comment: 2021-08-15: Historical information-source unspecified 7Result Comment: 2021-08-15: Historical information-source unspecified 8Result Comment: 2020-08-23: Historical information-source unspecified Medications brain health Start: 12/13/22 8:49:00 AM EST, brain health, daily Start Date: 12/13/22 Status: Ordered Repeat number: 1 CoQ10 100 mg oral capsule Start: 01/25/22 8:52:00 AM EDT Start Date: 01/25/22 Status: Ordered Repeat number: 1 Fosamax 70 mg oral tablet Start: 12/22/24 2:17:00 PM EST, 1 tab, PO, q7days, Disp# 12 tab, Refills: 3, Pharmacy: [id number] Start Date: 12/22/24 Stop Date: 11/23/25 Status: Ordered Quantity: 12.0 Unit: tab Repeat number: 4 Indication: Other specified disorders of bone density and structure, unspecified site Glucosamine Chondroitin Start: 06/30/24 9:18:00 AM EDT Start Date: 06/30/24 Status: Ordered Repeat number: 1 irbesartan 150 mg oral tablet Start: 11/09/24 9:29:00 AM EST, 1 tab, PO, Daily, Disp# 90 tab, Refills: 0, Pharmacy: [id number] Start Date: 11/09/24 Status: Ordered Quantity: 90.0 Unit: tab Repeat number: 1 magnesium oxide Start: 04/05/15 3:14:00 PM EDT, 250 mg =, PO, Daily Start Date: 04/05/15 Status: Ordered Repeat number: 1 [employer] Start: 04/05/15 3:14:00 PM EDT, XL-300mg. 2-3 tabs po daily Start Date: 04/05/15 Status: Ordered Repeat number: 1 Probiotic Formula Start: 07/29/19 10:50:00 AM EDT, Daily Start Date: 07/29/19 Status: Ordered Repeat number: 1 Vitamin B Complex Start: 12/27/17 8:13:00 AM EST, 1 tab, PO, Daily Start Date: 12/27/17 Status: Ordered Repeat number: 1 Vitamin B12 Start: 01/25/22 8:52:00 AM EDT Start Date: 01/25/22 Status: Ordered Repeat number: 1 Vitamin C Start: 01/25/22 8:52:00 AM EDT Start Date: 01/25/22 Status: Ordered Repeat number: 1 Vitamin D3 Start: 12/27/17 8:13:00 AM EST, 1 tab, PO, Daily Start Date: 12/27/17 Status: Ordered Repeat number: 1 Mental Status 12/22/24 Barriers to Learning one year None evide nt Mandatory Health Literacy Documentation Yes Health Literacy Communication Barriers N ever Primary Language [place] Problem List Condition Confirmation Course Effective Dates Status H ealth Status Informant Dilated aortic root Confirmed Active Other nonrheumatic aortic valve disorders Confirmed Active Aortic insufficiency Confirmed Active Ascending aorta dilatation Confirmed Active Atrial septal aneurysm Confirmed Active Benign essential HTN Confirmed Active Constipation Confirmed Active Diverticulosis of colon Confirmed Active Pain in joints of unspecified hand Confirmed Active Other hemorrhoids Confirmed Active Lumbago Confirmed Active Mitral regurgitation Confirmed Active Osteoporosis, senile Confirmed Active Visit for preventive health examination Confirmed Active Diagnosis Diagnosis Type Effective Dates Health Status Clinical Service Informant Fatigue Discharge Diagnosis 12/22/24 Non-Specified Weight loss Discharge Diagnosis 12/22/24 Non-Specified IFG (impaired fasting glucose) Discharge Diagnosis 12/22/24 Non-Specified Osteoporosis Discharge Diagnosis 12/22/24 Non-Specified Benign essential HTN Discharge Diagnosis 12/22/24 Non-Specified Body mass index [BMI] 26.0-26.9, adult Discharge Diagnosis 12/22/24 Non-Specified Osteopenia Discharge Diagnosis 12/22/24 Non-Specified Procedures Procedure Date Related Diagnosis Body Site Status Colonoscopy 1 02/15/21 Completed Chest x-ray 2 07/29/19 Completed Unilateral Left Digital Diag nostic Mammogram Tomosynthesis 3 06/23/19 Comple dia Tomography - chest 4 03/18/19 Comp leted Mammogram 5 02/12/18 Completed PAP test date 6 01/29/18 Completed DEXA - Dual energy X-ray wendy ton absorptiometry 7, 8, 9 01/29/17 Completed Mammogram 10 12/11/16 Completed Repair of inguinal hernia 11 06/23/15 Completed Colonoscopy normal 12 12/06/06 Com pleted Biopsy of liver 11/29/06 Completed Hernia repair 2003 Complete d Shoulder 2003 Completed 1Impression: -Diverticulosis in the sigmoid colon and in the ascending colon. - Non-bleeding internal hemorrhoids. - No specimens collected. 2No acute cardiopulmonary findings 3Impression: ACR BI RADS CATEGORY 2: BENIGN No persistent architectural distortion in the left breast. No mammographic evidence of malignancy in the left breast. Recommend resuming annual screening mammography schedule, due in March 2020. 4scatterec benign calcifications. 5Impression: ACR BI-RADS CATEGORY 1; NEGATIVE There is no mammographic evidence of malignancy. A 1year screening mammogram is recommended. 6Negative for intraepithelial lesion or malignancy 7(12/05/06) Lumbar Tscore -0.9, Femoral neck Tscore -0.6 8(12/14/04) Lumbar Tscore -1.63, Femoral neck Tscore -0.63 9(01/29/17) Lumbar Tscore -1.3, Femoral neck Tscore -1.2 10(12/11/16) No malignancy. On year screening recommended. 11femoral hernia repair 12Due in 10 years 13Right inguinal hernia repaired with an open procedure and no mesh. Vital Signs Most recent to oldest [Reference Range]: 1 Height 160 cm (12/22/24 9:58 AM) Patient Weight 68.5 kg (12/22/24 9:58 AM) Body Mass Index 26.76 kg/m2 (12/22/24 9:58 AM) Heart Rate 62 bpm (12/22/24 9:58 AM) Respiratory Rate 17 br/min (12/22/24 9:58 AM) Blood Pressure 118/82mmHg (12/22/24 9:58 AM) Social History Social History Type Response Tobacco Former smoker, Cigar ettes 1 Smoking Status Never smoked cigaret radha Sex Female Sex Representation Female (finding) 1Quit in 2014 Outpatient Note * DO Jiang Franklin J: PERFORM, MODIFY, SIGN, VERIFY Event Display: .Outpt Note Authored Date: [id number] Patient: ALANA GAMING Age: 74 years Sex: Female : 1950 Associated Diagnoses: None Author: DO Jiang Franklin J Visit Information Visit type: Scheduled follow-up. Chief Complaint 12/22/2024 09:57 EST 6m f/u no new concerns History of Present Illness She had some recent dental work and subsequent antibiotics. She feels her appetite may have been improving. Placed her mother in a facility on New Year's Radha, and this is continued stress - now on hospice. Here for 6 month follow up. Office weights 2020 - 176 01/2023 - 167 12/2023 - 158 June 2024 - 154 Today - 151 Review of Systems Constitutional: No fever, No chills. Eye: Negative. Ear/Nose/Mouth/Throat: Negative. Respiratory: Negative. Cardiovascular: Negative. Health Status Allergies: Allergic Reactions (Selected) Severity Not Documented Cephalexin- Sulfamethoxazole 500 mg oral tablet, sulfamethoxazole 500 mg oral tablet, sulfamethoxazole 500 mg oral tablet, nausea and vomiting and sulfamethoxazole 500 mg oral tablet. Codeine- Constipation. Sulfamethoxazole-trimethoprim- Nausea and vomiting.. Current medications: (Selected) Prescriptions Prescribed Fosamax 70 mg oral tablet: 1 tab, PO, q7days, for 84 day, 12 tab, 3 Refill(s) irbesartan 150 mg oral tablet: 1 tab, PO, Daily, 90 tab, 0 Refill(s) Documented Medications Documented CoQ10 100 mg oral capsule: Glucosamine Chondroitin: [employer]entials: XL-300mg. 2-3 tabs po daily Probiotic Formula: Daily Vitamin B Complex: 1 tab, PO, Daily Vitamin B12: Vitamin C: Vitamin D3: 1 tab, PO, Daily brain health: daily magnesium oxide: 250 mg, PO, Daily. Problem list: Medical Lumbago / SNOMED CT 407661796 / Confirmed Benign essential HTN / SNOMED CT 0708087 / Confirmed Ascending aorta dilatation / SNOMED CT 708942056 / Confirmed Visit for preventive health examination / ICD-9-CM V70.0 / Confirmed Dilated aortic root / SNOMED CT 308348507 / Confirmed Osteoporosis, senile / SNOMED CT 49806140 / Confirmed Diverticulosis of colon / SNOMED CT 8980288844 / Confirmed Mitral regurgitation / SNOMED CT 03639931 / Confirmed Atrial septal aneurysm / SNOMED CT 960428322 / Confirmed Aortic insufficiency / SNOMED CT 157873004 / Confirmed Other nonrheumatic aortic valve disorders / SNOMED CT 58055199 / Confirmed Other hemorrhoids / SNOMED CT 961865084 / Confirmed Constipation / SNOMED CT 31486832 / Confirmed Pain in joints of unspecified hand / SNOMED CT 796819952 / Confirmed All Problems Lumbago / SNOMED CT 611447216 / Confirmed Benign essential HTN / SNOMED CT 4404292 / Confirmed Ascending aorta dilatation / SNOMED CT 012668181 / Confirmed Visit for preventive health examination / ICD-9-CM V70.0 / Confirmed Prophylactic Administration of Vaccine Against Other Diseases / ICD-9-CM 99.55 / Confirmed Dilated aortic root / SNOMED CT 426627701 / Confirmed Osteoporosis, senile / SNOMED CT 46986658 / Confirmed Diverticulosis of colon / SNOMED CT 6356442475 / Confirmed Mitral regurgitation / SNOMED CT 86054395 / Confirmed Atrial septal aneurysm / SNOMED CT 664741242 / Confirmed Aortic insufficiency / SNOMED CT 329116850 / Confirmed Other nonrheumatic aortic valve disorders / SNOMED CT 72395227 / Confirmed Other hemorrhoids / SNOMED CT 658284006 / Confirmed Constipation / SNOMED CT 36032517 / Confirmed Pain in joints of unspecified hand / SNOMED CT 103768204 / Confirmed. Histories Family History: Prostate carcinoma Father () Peripheral vascular disease Mother Lymphoma Mother Aortic aneurysm.. Father () . 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 Physical Examination Vital Signs 12/22/2024 09:58 EST Heart Rate 62 bpm Respiratory Rate 17 br/min Systolic Blood Pressure 118 mmHg Diastolic Blood Pressure 82 mmHg SpO2 97 % Measurements from flowsheet : Measurements 12/22/2024 09:59 EST Osteoporosis Screening Tool -1.50 12/22/2024 09:58 EST Height 160 cm Patient Weight 68.5 kg Weight 68.500 kg Weight Method Standing Scale Body Mass Index 26.76 kg/m2 [place] Body Weight 52.4 kg General: Alert and oriented. HENT: Normocephalic, Normal hearing. Neck: Supple, Non-tender. Respiratory: Lungs are clear to auscultation, Respirations are non-labored. Cardiovascular: Normal rate, Regular rhythm, soft systolic murmur noted. . Musculoskeletal Normal range of motion. Integumentary: Warm, Dry, [place]. Neurologic: Alert, Oriented, Normal sensory. Psychiatric: Cooperative, Appropriate mood & affect. Health Maintenance Health Maintenance Pending (in the next year) OverDue Medicare Annual Wellness Visit due 12/13/23 and every 1 year Due Adult COVID-19 Vaccination due 12/22/24 Unknown Frequency Adult Social Determinants of Health Screening due 12/22/24 Unknown Frequency Shingles Vaccine due 12/22/24 One-time only Due In Future Adult Influenza Vaccine not due until 05/04/25 and every 1 year Satisfied (in the past 1 year) Satisfied Adult Influenza Vaccine on 08/10/24. Satisfied by MARK Medrano Brittany Adult Tdap/Td Vaccine on 04/25/24. Satisfied by MARK Medrano Brittany Body Mass Index on 12/22/24. Satisfied by YURI Fernandez Emma Lipid Screening on 12/16/24. Satisfied by [employer], [employer] Review / Management Results review: Lab results 12/16/2024 07:39 EST Na 140 mmol/L K 4.4 mmol/L Cl- 110 mmol/L HI HCO3 29 mmol/L Anion Gap 1 mmol/L LOW BUN 15 mg/dL Cret 0.79 mg/dL eGFR CKD-EPI 77 mL/min/1.73 m2 Glu 112 mg/dL HI Ca 9.5 mg/dL WBC 4.27 K/uL Hgb 13.2 g/dL Hct 39.4 % RBC 3.88 M/uL LOW MCV 101.5 fL HI MCHC 33.5 g/dL MCH 34.0 pg HI RDW 13.3 % Plts 209 K/uL MPV 8.6 fL LOW Type of Diff: AUTO Immature Gran% 0.5 % Neut% 47.0 % Lymph% 37.5 % [place]% 10.8 % Baso% 1.4 % Eos% 2.8 % Immat Gran, Abs 0.02 K/uL Neut, Abs 2.01 K/uL Lymph, Abs 1.60 K/uL [place], Abs 0.46 K/uL Baso, Abs 0.06 K/uL Eos, Abs 0.12 K/uL ALT 17 unit/L T Bili 0.9 mg/dL Alk Phos 46 unit/L AST 28 unit/L Alb 4.1 g/dL Prot 6.8 g/dL Chol 161 mg/dL LDL Chol, Calculated 76 mg/dL HDL 71 mg/dL Non-HDL 90 mg/dL Chol/HDL 2 TG 72 mg/dL . Impression and Plan Diagnosis Weight loss (FGQ54-CI R63.4, Discharge, Medical). Osteoporosis (LBM47-NC M81.0, Discharge, Medical). IFG (impaired fasting glucose) (RQU28-HC R73.01, Discharge, Medical). Benign essential HTN (LGI95-MO I10, Discharge, Medical). Fatigue (XQU14-LY R53.83, Discharge, Medical). Plan: Weight loss, unintentional This has leveled off; likely related to combination of issues with dentition and stress related to the health of her mother Fortunately, workup was unremarkable CBC, CMP, TSH done in the spring were unremarkable Colonoscopy done about 3 years ago without polyps Chest x-ray led to a CT scan of the chest which was unremarkable (chest x-ray with artifactual finding) Mammogram recently completed was unremarkable No distinct upper GI symptoms (reflux or dysphagia) She does have some difficulty with dentition which may be contributing to her weight loss Continue to monitor Hypertension Well-controlled on current medications BMP shows preserved renal function and normal serum potassium Aortic widening (aortic root 4.2 cm) Sclerotic trileaflet aortic valve with trace aortic insufficiency Echocardiogram from the spring reviewed She has 1 year follow-up with cardiology scheduled Osteoporosis Continue alendronate (bisphosphonate start date 12/05/2021; anticipated discontinuation 2026) Last DEXA scan was in Mar, 2022 DEXA scan scheduled Fatigue Check CBC and iron studies. Orders [facility] Radiology: BD Bone Density DEXA Axial Skeleton (Order): *Est. 12/22/2024, Routine, osteoporosis, Order for future visit, Osteoporosis, Exam to be performed outside organization?, [facility]. [facility] Laboratory: Hemoglobin A1C Request (Order): Routine, 12/22/2024 10:29 EST, Requested Timeframe 1 Week Prior to Next Visit BMP Request (Order): Routine, 12/22/2024 10:29 EST, Requested Timeframe 1 Week Prior to Next Visit Ferritin Request (Order): Routine, 12/22/2024 10:29 EST, Requested Timeframe 1 Week Prior to Next Visit Iron Level Request (Order): Routine, 12/22/2024 10:28 EST, Requested Timeframe 1 Week Prior to Next Visit CBC w Platelets and Diff Request (Order): Routine, 12/22/2024 10:28 EST, Requested Timeframe 1 Week Prior to Next Visit Evaluation and Management: [id number] Outpatient Visit Est Lvl 4 (Order): 12/22/2024 10:29 EST, FAMILY MEDICINE, Benign essential HTN | IFG (impaired fasting glucose) | Weight loss | Osteoporosis. [facility] Patient Care Ambulatory: Follow Up Appointment Ambulatory (Order): In 6 Months, Appointment Type Patient Preference, 40, Follow up With DO Jiang Franklin J. Professional Services [id number]: 30 minutes Documentation: 5 minutes Electronic Signature on File Electronically Reviewed/Signed by: Vitor Jiang DO Author Signature Dt/Tm:12/23/2024 06:56 PM Department of Family Medicine [facility] Patient Care team information Care Team Personnel Name: DO Jiang Franklin J Position: Physician - Family Med Member Role: Primary Care Provider Address: [address] [place] [address] Telecom: [phone] Care Team Related Persons Name: OCTAVIO ZHOU Insurance Providers Guarantor name: ALANA S MEKHI Health Plan Information #: 1 Payer: [employer] Member Number: [id number] Policy Number: NA Group Number: [id number] Health Plan Information #: 2 Payer: [employer] Member Number: NA Policy Number: NA Group Number: NA Health Plan Information #: 3 Payer: [employer] Member Number: [id number] Policy Number: NA Group Number: NA"
--- OUTSIDE RECORDS SUMMARY | 2025-01-07 01:50 | External Medical Summary | Continuity of Care Document ---
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 Date(s): 12/16/24 - 12/16/24 [facility] [address] [facility] [address] [facility] [place] [phone] Encounter Diagnosis Abnormal weight loss(Final) - Essential (primary) hypertension(Final) - Thoracic aortic ectasia(Final) - Age-related osteoporosis without current pathological fracture(Final) - Personal history of nicotine dependence(Final) - Discharge Disposition: Home or Self Care Attending Physician: DO Jiang Franklin J Referring Physician: DO Jiang Franklin J Encounter Type: Clinic Allergies, Adverse Reactions, Alerts Substance Criticality Severity Reaction Reaction Severity Status codeine constipation Active cephalexin Sulfamethoxazol e 500 mg oral tablet Sulfamethoxazole 500 mg oral tablet Sulfamethoxazole 500 mg oral tablet Sulfamethoxazole 500 mg oral tablet nausea and vomiting Active sulfamethoxazole-t rimethoprim nausea and vomiting Active Immunizations Given and Recorded Vaccine Date Status Refusal Reason influenza virus vaccine, inactivated 08/10/24 Igor rded influenza virus vaccine, inactivated 08/23/23 Igor rded influenza virus vaccine, inactivated 1 08/08/22 Re corded influenza virus vaccine, inactivated 08/15/21 Give n influenza virus vaccine, inactivated 09/15/20 Give n influenza virus vaccine, inactivated 07/29/19 Give n influenza virus vaccine, inactivated 07/22/12 Give n SARS-CoV-2 (COVID-19) mRNA-vacc - [id number] 08/10/24 Recorded SARS-CoV-2 (COVID-19) mRNA-vacc - [id number] 10/04/23 Recorded tetanus/diphtheria/pertuss, acel (Tdap) 04/25/24 R [...] Td (Adult) 8 03/04/02 Recorded 1Result Comment: [facility] 2Result Comment: [facility] 3Result Comment: [facility] 4Result Comment: [facility] 5Result Comment: leeann bueno 6Result Comment: 2021-08-15: Historical information-source unspecified 7Result Comment: 2021-08-15: Historical information-source unspecified 8Result Comment: 2020-08-23: Historical information-source unspecified Medications brain health Start: 12/13/22 8:49:00 AM EST, brain health, daily Start Date: 12/13/22 Status: Ordered Repeat number: 1 CoQ10 100 mg oral capsule Start: 01/25/22 8:52:00 AM EDT Start Date: 01/25/22 Status: Ordered Repeat number: 1 Fosamax 70 mg oral tablet Start: 11/27/23 10:06:00 AM EST, 1 tab, PO, q7days, Disp# 12 tab, Refills: 3, Pharmacy: [id number] Start Date: 11/27/23 Stop Date: 10/28/24 Status: Ordered Quantity: 12.0 Unit: tab Repeat number: 4 Indication: Other specified disorders of bone density and structure, unspecified site Glucosamine Chondroitin Start: 06/30/24 9:18:00 AM EDT Start Date: 06/30/24 Status: Ordered Repeat number: 1 irbesartan 150 mg oral tablet Start: 11/09/24 9:29:00 AM EST, 1 tab, PO, Daily, Disp# 90 tab, Refills: 0, Pharmacy: [id number] Start Date: 11/09/24 Status: Ordered Quantity: 90.0 Unit: tab Repeat number: 1 magnesium oxide Start: 04/05/15 3:14:00 PM EDT, 250 mg =, PO, Daily Start Date: 04/05/15 Status: Ordered Repeat number: 1 [place] [facility] Start: 04/05/15 3:14:00 PM EDT, XL-300mg. [...] Date: 12/27/17 Status: Ordered Repeat number: 1 Problem List Condition Confirmation Course Effective Dates [...] Visit for preventive health examination Confirmed Active Procedures Procedure Date Related Diagnosis Body Site [...] with an open procedure and no mesh. Results Laboratory List Name Date Complete Blood Count w Differential (CBC ,DIFFH) 12/16/24 Comprehensive Metabolic Panel (COMP META B PANEL) 12/16/24 Lipid Profile (LIPOPROTEINS) 12/16/24 Most recent to oldest [Reference Range]: 1 eGFR CKD-EPI [>60 mL/min/1.73 m2] 77 mL/ min/1.73 m2 1 (12/16/24 7:39 AM) Non-HDL 90 mg/dL 2 (12/16/24 7:39 AM) Estimated CrCl 56.88 mL/min (12/16/24 8:58 AM) MPV [9.0-12.2 fL] 8.6 fL *LOW* (12/16/24 7:39 AM) Immature Gran% 0.5 % (12/16/24 7:39 AM) Neut% 47.0 % (12/16/24 7:39 AM) Lymph% 37.5 % (12/16/24 7:39 AM) [place]% 10.8 % (12/16/24 7:39 AM) Baso% 1.4 % (12/16/24 7:39 AM) Eos% 2.8 % (12/16/24 7:39 AM) Immat Gran, Abs [0-0.4 K/uL] 0.02 K/uL (12/16/24 7:39 AM) Neut, Abs [2.0-7.7 K/uL] 2.01 K/uL (12/16/24 7:39 AM) Lymph, Abs [1.0-3.4 K/uL] 1.60 K/uL (12/16/24 7:39 AM) [place], Abs [0-1.0 K/uL] 0.46 K/uL (12/16/24 7:39 AM) Baso, Abs [0-0.1 K/uL] 0.06 K/uL (12/16/24 7:39 AM) Eos, Abs [0-0.5 K/uL] 0.12 K/uL (12/16/24 7:39 AM) Type of Diff: AUTO *Unknown* (12/16/24 7:39 AM) RDW [11.5-14.2 %] 13.3 % (12/16/24 7:39 AM) Anion Gap [5-14 mmol/L] 1 mmol/L *LOW* (12/16/24 7:39 AM) Alb [3.5-5.0 g/dL] 4.1 g/dL (12/16/24 7:39 AM) Alk Phos [38-126 unit/L] 46 unit/L (12/16/24 7:39 AM) ALT [<35 unit/L] 17 unit/L (12/16/24 7:39 AM) AST [15-46 unit/L] 28 unit/L (12/16/24 7:39 AM) BUN [7-20 mg/dL] 15 mg/dL (12/16/24 7:39 AM) Ca [8.4-10.2 mg/dL] 9.5 mg/dL (12/16/24 7:39 AM) Chol/HDL 2 (12/16/2439 AM) Chol [125-200 mg/dL] 161 mg/dL (12/16/24 7:39 AM) Cl- [96-107 mmol/L] 110 mmol/L *HI* (12/16/2439 AM) HCO3 [22-30 mmol/L] 29 mmol/L (12/16/24:39 AM) Cret [0.60-1.00 mg/dL] 0.79 mg/dL (12/16/24:39 AM) Glu [74-106 mg/dL] 112 mg/dL *HI* (12/16/24:39 AM) Hct [35-44 %] 39.4 % (12/16/24:39 AM) HDL [>35 mg/dL] 71 mg/dL (12/16/24:39 AM) Hgb [11.7-15.0 g/dL] 13.2 g/dL (12/16/24 7:39 AM) K [3.5-5.1 mmol/L] 4.4 mmol/L (12/16/24:39 AM) LDL Chol, Calculated [50-130 mg/dL] 76 m g/dL (12/16/24 7:39 AM) MCH [28-33 pg] 34.0 pg *HI* (12/16/24 7:39 AM) MCHC [32-36 g/dL] 33.5 g/dL (12/16/24 7:39 AM) MCV [81-96 fL] 101.5 fL *HI* (12/16/24 7:39 AM) Na [137-145 mmol/L] 140 mmol/L (12/16/24 7:39 AM) Plts [150-350 K/uL] 209 K/uL (12/16/24 7:39 AM) RBC [3.90-5.00 M/uL] 3.88 M/uL *LOW* (12/16/24 7:39 AM) T Bili [0.2-1.3 mg/dL] 0.9 mg/dL (12/16/24 7:39 AM) Prot [6.3-8.2 g/dL] 6.8 g/dL (12/16/24 7:39 AM) TG [<200 mg/dL] 72 mg/dL (12/16/24 7:39 AM) WBC [4.0-10.4 K/uL] 4.27 K/uL (12/16/24 7:39 AM) 1Result Comment: [facility], [address] [place] [id number] 2Result Comment: Testing Performed [facility], [address] [place] [address] Social History Social History Type Response Tobacco Former smoker, Cigar ettes 1 Smoking Status Never smoked cigaret radha Sex Female Sex Representation Female (finding) 1Quit in 2015 Patient Care team information Care Team Personnel Name: DO Jiang Franklin J Position: Physician - Family Med Member Role: Primary Care Provider Address: [address] [place] [address] Telecom: [phone] Care Team Related Persons Name: OCTAVIO ZHOU Insurance Providers Guarantor name: ALANA GAMING Health Plan Information #: 1 Payer: [employer] Member Number: [id number] Policy Number: NA Group Number: [id number] Health Plan Information #: 2 Payer: [employer] Member Number: NA Policy Number: NA Group Number: NA Health Plan Information #: 3 Payer: [employer] Member Number: [id number] Policy Number: NA Group Number: NA
[2025-01-07] MEDS: ALENDRONATE SODIUM 70 MG TAB PO SCH (05:42)
[2025-01-07 06:35] LABS: Basophils # (auto) 0.04 K/uL (0.00-0.20); Basophils % (auto) 0.8 %; Eosinophils # (auto) 0.07 K/uL (0.00-0.50); Eosinophils % (auto) 1.5 %; Hematocrit (blood only) 33.3 % (37.0-47.0); Hemoglobin 11.5 g/dl (12.0-16.0); Immature Granulocytes # (auto) 0.02 K/uL (0.01-0.20); Immature Granulocytes % (auto) 0.4 %; Lymphocytes # (auto) 1.53 K/uL (1.20-3.40); Lymphocytes % (auto) 32.5 %; Mean Corpuscular Hemoglobin 34.2 pg (25.0-34.0); Mean Corpuscular Hgb Conc 34.5 g/dL (32.0-36.0); Mean Corpuscular Volume 99.1 fL (80.0-100.0); Mean Platelet Volume 8.4 fL (9.4-12.4); Monocytes # (auto) 0.59 K/uL (0.11-0.59); Monocytes % (auto) 12.5 %; Neutrophils # (auto) 2.46 K/uL (1.40-6.50); Neutrophils % (auto) 52.3 %; Platelet Count 187 K/uL (130-400); RDW Coefficient of Variation 12.8 % (11.5-14.5); RDW Standard Deviation 46.5 fL (36.4-46.3); Red Blood Count 3.36 M/uL (4.20-5.40); White Blood Count 4.71 K/ul (4.8-10.8)
[2025-01-07 07:04] LABS: Albumin Globulin Ratio 1.5 (0.9-2); Albumin Level 3.2 gm/dl (3.4-5.0); BUN Creatinine Ratio 27.3 (10-20); Bilirubin,Total 0.8 mg/dl (0.2-1.0); Calcium 8.4 mg/dl (8.6-10.3); Creatinine Clr Calc Pharmacy 56.8 ml/min; Globulin 2.1 gm/dl (2.5-4.0); Potassium 3.8 mmol/L (3.5-5.1); Total Protein 5.3 gm/dl (6.0-8.3)
[2025-01-07] MEDS: ACETAMINOPHEN 325 MG TAB PO PRN (08:20)
[2025-01-07] MEDS ORDERED: IRBESARTAN 150 MG TAB PO SCH (09:00)
[2025-01-07 09:12] LABS: Troponin I High Sensitivity 181.9 pg/ml (0-14)
--- NOTE | 2025-01-07 09:29 | XCELERA ---
[id number] [id number]
[2025-01-07 16:40] VITALS: RESP 18
--- NOTE | 2025-01-07 18:38 | Hospitalist Progress Note ---
Date of Service January 07, 2025 Assessment & Plan (1) Rhabdomyolysis: (2) Elevated troponin: (3) Elevated d-dimer: (4) Cholelithiasis: Plan 74 years old female with PMH of DNR/DNI @ home alone, overweight with BMI 26.9 (height 160.0 cm; weight 68.8 kg), osteoporosis with chronic lower back pain, on medical marijuana for pain control since patient was 15 years old, and HTN, who reports that she went to bed on Saturday evening (01/01/2025, 10:00pm) and woke up on Saturday afternoon (01/04/2025, 3:00pm), feeling lightheaded, weak, and dizzy, with chronic lower back pain and acute bilateral leg cramps. Patient was subsequently admitted to the inpatient hospitalist service @ [facility] on 01/06/2025 with the following diagnoses: 1. Acute non-traumatic rhabdomyolysis with admission CK 1,665 U/L (01/06/2025, 1:27pm) with no end-organ failure (cf., normal creatinine 0.86 mg/dL, 01/06/2025, 1:27pm). 2. Acute transaminitis with admission AST 76 U/L, ALT 61 U/L (01/06/2025, 1:27pm). 3. Acute type II NSTEMI with nominal troponin elevation with admission troponin-I #1 256.7 pg/mL (01/06/2025, 1:27pm); troponin-I #2 237.8 pg/mL (01/06/2025, 3:09pm); troponin-I #3 277.4 pg/mL (01/06/2025, 8:53pm); troponin-I #4 181.9 pg/mL (01/07/2025, 5:22am), of unclear etiology. # Acute non-traumatic rhabdomyolysis with admission CK 1,665 U/L (01/06/2025, 1:27pm) with no end-organ failure (cf., normal creatinine 0.86 mg/dL, 01/06/2025, 1:27pm). - Due to lying in bed from Saturday evening (01/01/2025, 10:00pm) and woke up on Saturday afternoon (01/04/2025, 3:00pm). - RESOLVING well on IV fluid rehydration therapy utilizing 3 liters of 0.9% NS @ 200 mL/hr (start date/time, 01/06/2025, 9:40pm; stop date/time, 01/07/2025, 12:40pm). - Check repeat CK level in the 01/08/2025 am. #Acute transaminitis with admission AST 76 U/L, ALT 61 U/L (01/06/2025, 1:27pm). - Due to acute non-traumatic rhabdomyolysis. - RESOLVED on IV fluid rehydration therapy utilizing 3 liters of 0.9% NS @ 200 mL/hr (start date/time, 01/06/2025, 9:40pm; stop date/time, 01/07/2025, 12:40pm) with repeat AST 46 U/L, ALT 41 U/L (01/07/2025, 5:22am). # Acute type II NSTEMI with nominal troponin elevation with admission troponin-I #1 256.7 pg/mL (01/06/2025, 1:27pm); troponin-I #2 237.8 pg/mL (01/06/2025, 3:09pm); troponin-I #3 277.4 pg/mL (01/06/2025, 8:53pm); troponin-I #4 181.9 pg/mL (01/07/2025, 5:22am), of unclear etiology. - cf., EKG #1 (01/06/2025, 1:24pm): NSR @ 68, IN 144, QTC 397, no acute ST depressions/elevations (by my review). - cf., EKG #2 (01/07/2025, 8:47am): NSR @ 64, IN 166, QTC 439, no acute ST depressions/elevations (by my review). - cf., TTE (01/06/2025, 11:35pm): a. LVEF 55-60%. Mild concentric LVH. LV wall motion normal. b. RV normal size and systolic function. c. LA / RA sizes normal. No ASD. d. No . Trace AR. e. Trace IN. f. No MS. No MR. g. Mild TR with RVSP normal. h. No obvious dissection. Aortic root normal size. Aortic arch normal dimension. PA normal size. Normal IVC diameter and respiratory variation suggests normal CVP. i. No pericardial effusion. (as per CARDS Dr. Sarath Monroe). #Elevated D Dimer -D dimer 2270 ug/L (01/06/2025, 3:09pm), most probably due to chronically dilated ascending aorta. - cf., CTA chest (01/06/2025, 3:55pm): No PE. Ascending aorta is dilated to 4.1 cm. The descending aorta is moderately ectatic. #Cholelithiasis -CT abd/pelvis with IV contrast (01/06/2025, 2:59pm) shows small gallstones. No ductal dilation or stone. -Patient remains asymptomatic. Observe. #Urine tox (01/06/2025): positive only for marijuana - Patient reports taking medical marijuana since the age of 15 years to treat chronic lower back pain. According to patient, she has been taking the same formulation and same dose of medical marijuana for the past 59 years. Chronic conditions Hypertension: Hold OFF patient's home-scheduled irbesartan 150 mg PO daily for now with BP normal at 128/77 (01/07/2025, 4:38pm). Osteoporosis: Continue home-scheduled alendronate 70mg PO q mornings (01/07/2025, 6:30am). Dispo: Med/Surg with telemetry Code: DNR/DNI VTE prophylaxis: encourage Ambulation Admission and Anticipated Discharge Date Admission Date: January 06, 2025 Subjective "I feel a little weak, that's all. Otherwise, I am ok." Review of Systems Constitutional: Positive for generalized weakness. Negative for antecedent/coincident fevers, chills, diaphoresis, cough, wheeze, sore throat, hemoptysis, chest pains, palpitations, pleurisy, nausea, vomiting, diarrhea, abdominal pain, pelvic pain, hematemesis, hematochezia, melena, hematuria, dysuria, frequency, urgency, headaches, dizziness, lightheadedness, visual changes, hearing changes, falls, syncope, trauma, travel history, sick contacts, or food/drug ingestions novel or new. All other review of systems are reported as negative by the patient on 01/07/2025. Physical Exam Constitutional: General: Comfortable, coherent, cooperative. Wide awake and alert. Not confused, lethargic, or obtunded. Patient speaks in complete, fluent, and articulate sentences without pause, interruption, cough, or wheeze. HEENT: Normocephalic, atraumatic. Pupils equally round and reactive to light. Extra-ocular muscles intact. No nystagmus, gaze paresis, anisocoria, miosis, mydriasis, hyphema, scleral injection, conjunctivitis, or pterygium. No rhinorrhea or otorrhea. No pharyngeal discharge or erythema. Neck: Supple with mild posterior neck tenderness (without hematoma/ecchymosis), no stridor, bruit, goiter, hepatojugular reflux. Jugular venous pressure is estimated to be 8 cm above the sternal angle of [place], which is estimated to be 5 cm above the level of the right atrium. Lymph: No anterior/posterior cervical, supraclavicular/infraclavicular, axillary, epitrochlear, or inguinal adenopathy. Chest: Symmetric rise and fall with respirations. Lungs: Clear to auscultation and percussion. No audible expiratory wheeze, egophony, pectoriloquy, increase in tactile fremitus, or flatness/dullness to percussion at the bases. Heart: RRR, S1 and S2 noted. No S3 or S4 summation gallop noted. No tripartite friction rub. Grade II/ early systolic murmur @ LLSB without radiation to the carotids, axilla, or back, and which remains invariant in regards to the respiratory cycle. Abdomen: Soft, non-tender, non-distended. No rebound, guarding, Narayanan's sign, or organomegaly. Bowel sounds sounds auscultated in all 4 quadrants. Extremities: No clubbing, cyanosis, or edema. 2+ pedal pulses bilaterally. Skin: Dry skin without tenting. No delay in capillary refill time > 2 seconds. No decubitus ulcer, exanthem, or enanthem. Left side ecchymoses corresponding to acute left 10th, 11th, and 12th rib fractures in situ. Neurology: Alert and oriented to person, place, time, and situation. DTR+ and symmetric. 5/5 motor strength in all 4 extremities, both proximally and distally. No pronator drift. No facial droop. No tremors, tics, or myoclonus. Urology: No chin catheter. No urethral discharge. Psychiatry: No suicidal ideation. No homicidal ideation. Results & Data Results & Data Vital Signs (Past 12 Hours) Vital Signs Temp Pulse Pulse Resp BP Pulse Ox Pulse Ox 01/07/25 16:38 37.4 C 66 18 128/77 95 01/07/25 15:12 67 01/07/25 12:38 36.6 C 60 16 126/77 98 01/07/25 08:12 98 01/07/25 07:43 36.8 C 55 L 18 120/75 98 01/07/25 07:25 57 L O2 Del Method O2 Del Method 01/07/25 16:38 Room Air 01/07/25 15:12 01/07/25 12:38 Room Air 01/07/25 08:12 Room Air 01/07/25 07:43 Room Air 01/07/25 07:25 Laboratory Results 01/07/25 01/06/25 01/06/25 05:22 Unknown 20:53 WBC 4.71 L RBC 3.36 L Hgb 11.5 L Hct 33.3 L MCV 99.1 MCH 34.2 H MCHC 34.5 RDW Std Deviation 46.5 H RDW Coeff of Laurie 12.8 Plt Count 187 MPV 8.4 L Immature Gran % (Auto) 0.4 Neut % (Auto) 52.3 Lymph % (Auto) 32.5 [place] % (Auto) 12.5 Eos % (Auto) 1.5 Baso % (Auto) 0.8 Neut # (Auto) 2.46 Lymph # (Auto) 1.53 [place] # (Auto) 0.59 Eos # (Auto) 0.07 Baso # (Auto) 0.04 Immature Gran # (Auto) 0.02 Sodium 143 Potassium 3.8 Chloride 112 H Carbon Dioxide 28 Anion Gap 3 BUN 21 Creatinine 0.77 Est Cr Clr Drug Dosing 56.8 eGFR 79.90 BUN/Creatinine Ratio 27.3 H Glucose 90 Calcium 8.4 L D Total Bilirubin 0.8 AST 46 H ALT 41 Alkaline Phosphatase 36 Total Creatine Kinase 764 H Troponin I High Sens 181.9 H* D 277.4 H* Total Protein 5.3 L D Albumin 3.2 L Globulin 2.1 L Albumin/Globulin Ratio 1.5 Urine Bacteria (Auto) None Seen Urine RBC 3-5 H Urine WBC 0-5 Ur Epithelial Cells 3-5 H Urine Bacteria None Seen Hyaline Casts 0 Urine Opiates Screen Neg Ur Methadone, Qual Neg Urine Fentanyl Screen Neg Urine Barbiturates Neg Ur Phencyclidine (PCP) Neg U Amphetamin/Meth Scrn Neg MDMA (Ecstasy) Screen Neg U Benzodiazepines Scrn Neg Ur Cocaine Metabolite Neg U Marijuana (THC) Screen Pos H PG Care Time/CCT Total # of Minutes Spent Total Time Spent with Patient: Total time spent is greater than 50% in coordination of care (as documented) at patient's floor/unit and/or counseling patient: Coding Level of Care Code 36825 SUB INP/OBS CARE 235MIN Diagnoses Rhabdomyolysis M62.82 Elevated troponin R79.89 Elevated d-dimer R79.89 Cholelithiasis K80.20
[2025-01-08 07:02] LABS: BUN Creatinine Ratio 17.2 (10-20); Calcium 8.5 mg/dl (8.6-10.3); Creatinine Clr Calc Pharmacy 51.4 ml/min; Potassium 3.6 mmol/L (3.5-5.1)
[2025-01-08 11:14] VITALS: BP 126/80; TEMP 98.2; O2SAT 99
--- NOTE | 2025-01-08 15:18 | Discharge Summary ---
Discharge Summary Date of Service January 08, 2025 Principal Dx & Hospital Course #1 = Principal Diagnosis (1) Rhabdomyolysis: (2) Elevated troponin: (3) Elevated d-dimer: (4) Cholelithiasis: Plan 74 years old female with PMH of DNR/DNI @ home alone, overweight with BMI 26.9 (height 160.0 cm; weight 68.8 kg), osteoporosis with chronic lower back pain, on medical marijuana for pain control since patient was 15 years old, and HTN, who reports that she went to bed on Saturday evening (01/01/2025, 10:00pm) and woke up on Saturday afternoon (01/04/2025, 3:00pm), feeling lightheaded, weak, and dizzy, with chronic lower back pain and acute bilateral leg cramps. Patient was subsequently admitted to the inpatient hospitalist service @ [facility] on 01/06/2025 with the following diagnoses: 1. Acute non-traumatic rhabdomyolysis with admission CK 1,665 U/L (01/06/2025, 1:27pm) with no end-organ failure (cf., normal creatinine 0.86 mg/dL, 01/06/2025, 1:27pm). 2. Acute transaminitis with admission AST 76 U/L, ALT 61 U/L (01/06/2025, 1:27pm). 3. Acute type II NSTEMI with nominal troponin elevation with admission troponin-I #1 256.7 pg/mL (01/06/2025, 1:27pm); troponin-I #2 237.8 pg/mL (01/06/2025, 3:09pm); troponin-I #3 277.4 pg/mL (01/06/2025, 8:53pm); troponin-I #4 181.9 pg/mL (01/07/2025, 5:22am), of unclear etiology. The following medical issues were addressed while the patient remained in [facility] from 01/06/2025 through 01/08/2025: # Acute non-traumatic rhabdomyolysis with admission CK 1,665 U/L (01/06/2025, 1:27pm) with no end-organ failure (cf., normal creatinine 0.86 mg/dL, 01/06/2025, 1:27pm). - Due to lying in bed from Saturday evening (01/01/2025, 10:00pm) and woke up on Saturday afternoon (01/04/2025, 3:00pm). - RESOLVED on IV fluid rehydration therapy utilizing 3 liters of 0.9% NS @ 200 mL/hr (start date/time, 01/06/2025, 9:40pm; stop date/time, 01/07/2025, 12:40pm) with discharge CK 440 U/L (01/08/2025, 5:19am) and discharge creatinine 0.87 mg/dL (01/08/2025, 5:19am). #Acute transaminitis with admission AST 76 U/L, ALT 61 U/L (01/06/2025, 1:27pm). - Due to acute non-traumatic rhabdomyolysis. - RESOLVED on IV fluid rehydration therapy utilizing 3 liters of 0.9% NS @ 200 mL/hr (start date/time, 01/06/2025, 9:40pm; stop date/time, 01/07/2025, 12:40pm) with repeat AST 46 U/L, ALT 41 U/L (01/07/2025, 5:22am). # Acute type II NSTEMI with nominal troponin elevation with admission troponin-I #1 256.7 pg/mL (01/06/2025, 1:27pm); troponin-I #2 237.8 pg/mL (01/06/2025, 3:09pm); troponin-I #3 277.4 pg/mL (01/06/2025, 8:53pm); troponin-I #4 181.9 pg/mL (01/07/2025, 5:22am), of unclear etiology. - cf., EKG #1 (01/06/2025, 1:24pm): NSR @ 68, TN 144, QTC 397, no acute ST depressions/elevations (by my review). - cf., EKG #2 (01/07/2025, 8:47am): NSR @ 64, TN 166, QTC 439, no acute ST depressions/elevations (by my review). - cf., TTE (01/06/2025, 11:35pm): a. LVEF 55-60%. Mild concentric LVH. LV wall motion normal. b. RV normal size and systolic function. c. LA / RA sizes normal. No ASD. d. No . Trace AR. e. Trace TN. f. No MS. No MR. g. Mild TR with RVSP normal. h. No obvious dissection. Aortic root normal size. Aortic arch normal dimension. PA normal size. Normal IVC diameter and respiratory variation suggests normal CVP. i. No pericardial effusion. (as per CARDS Dr. Sarath Monroe). Given the absence of any LV wall motion abnormalities (as reported on 01/06/2025, 11:35pm TTE), the likelihood of acute type I NSTEMI with acute myocardial ischemia remains very low. Hence, I opted to observe this laboratory anomaly while patient remained in [facility]. #Elevated D Dimer -D dimer 2270 ug/L (01/06/2025, 3:09pm), most probably due to chronically dilated ascending aorta. - cf., CTA chest (01/06/2025, 3:55pm): No PE. Ascending aorta is dilated to 4.1 cm. The descending aorta is moderately ectatic. Patient was subsequently advised to undergo annual CT chest without contrast to evaluate for interval change(s) in 4.1 dilatation @ ascending aorta, starting on 01/06/2026, and ending on 01/07/2028, as patient will turn 78 years old on 09/05/2028, at which point, no further surveillance imaging with annual CT chest without contrast will be recommended. Patient reports that she will comply with this recommendation. #Cholelithiasis -CT abd/pelvis with IV contrast (01/06/2025, 2:59pm) shows small gallstones. No ductal dilation or stone. -Patient remains asymptomatic. Observe. #Urine tox (01/06/2025): positive only for marijuana - Patient reports taking medical marijuana since the age of 15 years to treat chronic lower back pain. According to patient, she has been taking the same formulation and same dose of medical marijuana for the past 59 years. Chronic conditions Hypertension: Hold OFF patient's home-scheduled irbesartan 150 mg PO daily for now with BP normal at 128/77 (01/07/2025, 4:38pm). Osteoporosis: Continue home-scheduled alendronate 70mg PO q mornings (01/07/2025, 6:30am). Dispo: Med/Surg with telemetry Code: DNR/DNI VTE prophylaxis: encourage Ambulation Patient was subsequently discharged back to her home on 01/08/2025 after undergoing PT/PT Service evaluations on 01/08/2025, and patient was deemed fit for discharge back to her home on 01/08/2025. Discharge time, 35 minutes. Of this time period, 18 minutes were spent in coordinating patient's discharge. Admission HPI Per Admitting Provider Yashira is a 74 Y O Female with PMH of Hypertension and Osteoporosis . She mentioned that she went to bed on Saturday at 10 PM and woke up on Saturday afternoon 2 PM. She live by herself at home. She mentions she was in her usual state of health before going to bed. She denies dizziness, chest pain or weakness before sleep. She woke up once but went back to sleep immediately. When she woke up she felt lightheadedness, weak ,dizzy , back pain and had bilateral leg cramps after this event. She has bruise in her right arm but she doesn't remember about how it happened.She mentioned she had bowel movement in the commode when she woke up but she doesn't remember going to the bathroom. Patient drove to the hospital herself. She denies Chest pain, abdominal pain, nausea and vomiting . Her back is hurting. She is well oriented to time, place and person. She has been using medical marijuana since she was 15. Discharge Exam Constitutional General: Comfortable, coherent, cooperative. Wide awake and alert. Not confused, lethargic, or obtunded. Patient speaks in complete, fluent, and articulate sentences without pause, interruption, cough, or wheeze. HEENT: Normocephalic, atraumatic. Pupils equally round and reactive to light. Extra-ocular muscles intact. No nystagmus, gaze paresis, anisocoria, miosis, mydriasis, hyphema, scleral injection, conjunctivitis, or pterygium. No rhinorrhea or otorrhea. No pharyngeal discharge or erythema. Neck: Supple with mild posterior neck tenderness (without hematoma/ecchymosis), no stridor, bruit, goiter, hepatojugular reflux. Jugular venous pressure is estimated to be 8 cm above the sternal angle of [place]in[place], which is estimated to be 5 cm above the level of the right atrium. Lymph: No anterior/posterior cervical, supraclavicular/infraclavicular, axillary, epitrochlear, or inguinal adenopathy. Chest: Symmetric rise and fall with respirations. Lungs: Clear to auscultation and percussion. No audible expiratory wheeze, egophony, pectoriloquy, increase in tactile fremitus, or flatness/dullness to percussion at the bases. Heart: RRR, S1 and S2 noted. No S3 or S4 summation gallop noted. No tripartite friction rub. Grade II/ early systolic murmur @ LLSB without radiation to the carotids, axilla, or back, and which remains invariant in regards to the respiratory cycle. Abdomen: Soft, non-tender, non-distended. No rebound, guarding, Narayanan's sign, or organomegaly. Bowel sounds sounds auscultated in all 4 quadrants. Extremities: No clubbing, cyanosis, or edema. 2+ pedal pulses bilaterally. Skin: Dry skin without tenting. No delay in capillary refill time > 2 seconds. No decubitus ulcer, exanthem, or enanthem. Left side ecchymoses corresponding to acute left 10th, 11th, and 12th rib fractures in situ. Neurology: Alert and oriented to person, place, time, and situation. DTR+ and symmetric. 5/5 motor strength in all 4 extremities, both proximally and distally. No pronator drift. No facial droop. No tremors, tics, or myoclonus. Urology: No chin catheter. No urethral discharge. Psychiatry: No suicidal ideation. No homicidal ideation. Discharge Plan Discharge Items Patient Disposition: Home - Self-Care Reason For Visit: RHABDOMYOLYSIS, ELEVATED TROPONIN Discharge Diagnosis: 1. Acute non-traumatic rhabdomyolysis with admission CK 1,665 U/L (01/06/2025, 1:27pm) with no end-organ failure (cf., normal creatinine 0.86 mg/dL, 01/06/2025, 1:27pm). 2. Acute transaminitis with admission AST 76 U/L, ALT 61 U/L (01/06/2025, 1:27pm). 3. Acute type II NSTEMI with nominal troponin elevation with admission troponin-I #1 256.7 pg/mL (01/06/2025, 1:27pm); troponin-I #2 237.8 pg/mL (01/06/2025, 3:09pm); troponin-I #3 277.4 pg/mL (01/06/2025, 8:53pm); troponin-I #4 181.9 pg/mL (01/07/2025, 5:22am), of unclear etiology. Condition on Discharge: Fair Activity: Resume your previous activity Non-emergency contact: Primary Care Provider Call non-emergency contact if: you have any medication questions Follow-up/Referrals: Vitor Jiang, [Primary Care Provider] - Diet: Heart Healthy, Low Fat and Low Sodium (2gm) Addtl Attending Provider Instructions: See your PCP Dr. Vitor Jiang within 7 days of hospital discharge. Pending Studies at Discharge: No Stand-Alone Forms: My [facility] [employer], Smoking Cessation Medications and DC Order Prescriptions: Continued alendronate 70 mg tablet 70 mg PO WK irbesartan 150 mg tablet 150 mg PO DAILY Discharge Orders: Discharge Order (Routine); Ordered 01/08/25 Ordered By: Sunil More Admission Data Admit Date/Time: 01/06/25 18:48 Attending Provider: Sunil More Admit Provider: Michelle Goyal Primary Care Provider: Vitor Jiang Other Providers: Humberto Ritchie Hospital Stay Data Consultations 01/06/25 16:40 ED Decision to Admit Stat Diagnostic Imagining Performed 01/06/25 14:59 CT abd pelvis IV con only Stat CT head/brain wo con Stat 01/06/25 15:55 CT angio chest PE protocol Stat Pending Results Patient Have Any Pending Studies at Discharge: No Discharge Instructions Given to Patient (Per Discharging Provider) See your PCP Dr. Vitor Jiang within 7 days of hospital discharge. Total Time Total Time Spent Total Time Spent (In Minutes): 35 Coding Level of Care Code 68633 INP/OBS DISCH >30 MIN Diagnoses Rhabdomyolysis M62.82 Elevated troponin R79.89 Elevated d-dimer R79.89 Cholelithiasis K80.20
[2025-01-08 15:32] VITALS: PULSE 92
[2025-01-10 12:52] LABS: Marijuana Quant, GCMS Urine 436 ng/mL (<5)
== END 2025-01-08 16:16 | disposition home or self-care (01) | DRG 557 ==
LOC: ED 13:07 → SUATTDRO 18:48 → EDINP 18:48 → 2N 19:29

== ENCOUNTER 2025-03-24 11:41 | Inpatient (IN) ==
--- NOTE | 2025-03-24 12:04 | Emergency Department Note ---
Impression & Plan Seizure, Pneumonia, Medical marijuana use, Acute metabolic encephalopathy, Elevated troponin ED Provider Note NAME: ALANA GAMING AGE: 74 SEX: F : 1950 ARRIVES VIA: Ambulance INFORMANT: Patient ED PROVIDER(S): Cody Man MD CHIEF COMPLAINT: Altered mental status PLAN: Disposition: Admit MEDICAL DECISION MAKING: The patient is a 74-year-old woman with a past medical history of hypertension who presents to the emergency department via EMS for altered mental status where the patient was found confused and minimally responsive by her sister who also works with her and went to check on her when she did not show up for work this morning. Patient sister reports she found her in bed confused and moaning with blood on her mouth and right side of her face. She attempted to wake her and eventually she was more responsive and able to be guided to the bathroom to sit on the commode as the patient had urinated herself in the bed. However the patient remained confused and unable to get up from the commode and so EMS was called. The patient's sister confirms the patient's report of no regular alcohol use. She may have a glass of wine here and there and sometimes put some alcohol in her hot chocolate. They report that she did have a admission to this facility in January that was similar and per review of records was diagnosed with rhabdomyolysis and NSTEMI. The patient was combative for EMS and having nausea and vomiting and so was given droperidol prior to arrival. On my evaluation the patient is confused, restless but no acute distress, afebrile blood pressure in the 170s/110s and vital signs otherwise stable. Patient is moving all extremities equally without focal deficit. Pupils are 2 mm bilaterally and sluggish. There is dried blood on the patient's lips and contusion of the right inferior aspect of the tongue. EKG without overt acute ischemia. WBC, H/H and platelets within normal limits. Chemistry without metabolic acidosis. Electrolytes without significant abnormality. Lactic acid initially 2.4 with repeat pending. CPK is mildly elevated above normal at 200. High sensitivity troponin 36.8, nonspecific. Lipase is marginally above normal at 84. UA with ketones and otherwise no evidence of infection. Urine drug positive for THC in the setting of known marijuana use. Initial lactic acid 2.4 with repeat 1.4 following IV fluid hydration. Procalcitonin is not elevated. CT of the head and CTA of the head and neck were performed and were negative for ICH, ischemia or severe narrowing occlusion of large vessels. CT of the abdomen pelvis was negative for acute intra-abdominal process. CT of the chest was negative for PE though with development of groundglass opacities in the right midlung. Mental status progressively improving following CT imaging. Patient will follow commands and answer simple questions. Following discussion with the patient and her sister at the bedside with prior similar episode in the past suspect symptoms likely related to seizure. 1 g of IV Keppra was administered. Thiamine was administered following initial assessment prior to additional discussion with patient's sister. The patient and her sister agree with plan for admission for further management. Case was discussed with [place]. Mar[place] [facility] [place], who will evaluate the patient for admission. Further management including decision for antibiotics per admitting team. Triage Nursing notes reviewed and agree them. Prior/external medical records reviewed Vital Signs: reviewed Differential diagnosis: Infection, hypoglycemia, electrolyte abnormalities, overdose, toxicologic, cardiac sources, intracerebral event, neurologic, trauma, as well as other pathologies. ER treatment provided: See below. Diagnostics interpreted by me: ECG: Sinus rhythm, sinus rhythm, 80 bpm, no overt ST elevation or depression, QTc 438, QRS 80. Cardiac Monitoring: An order for continuous cardiac monitoring was placed and demonstrated Sinus rhythm, sinus rhythm, 80 bpm, Laboratory studies: See below Imaging studies: See below Consultation(s): Dr. Marques [facility] [place] HPI: Per MDM. ROS: See above HPI for pertinent positives & negatives. A total of 10 systems reviewed and were otherwise negative. VITALS:See Below PHYSICAL EXAMINATION: GENERAL: Awake, ill-appearing. in no distress HENT: Normocephalic, atraumatic. Oropharynx with dried blood on the patient's lips and contusion of the right inferior aspect of the tongue. EYES: Normal conjunctiva. Sclera non-icteric. EOMI. No nystamgus. Pupils 2 mm bilaterally and sluggish. NECK: Supple. No nuchal rigidity. FROM. No JVD. RESPIRATORY: Clear to auscultation. CARDIAC: Regular rate, normal rhythm. Extremities warm and well perfused. Pulses equal. ABDOMEN: Soft, non-distended. No tenderness to palpation. No rebound or guarding. No masses. MUSCULOSKELETAL: Chest examination reveals no tenderness. The back is symmetrical on inspection without obvious abnormality. There is no CVA tenderness to palpation. No joint edema. LOWER EXTREMITIES: Calves are equal size bilaterally and non-tender. No edema. No discoloration. NEURO: Somnolent, moving all extremities equally SKIN: No rash or jaundice noted. Cody Man MD Past Med/Surg History Problem List (Updated 03/25/25 @ 03:18 by Cody Man MD) Elevated troponin (Acute) Ascending aortic aneurysm Medical marijuana use (Acute) Chronic vertigo Pneumonia (Acute) Seizure (Acute) Acute metabolic encephalopathy (Acute) Medical History (Updated 03/25/25 @ 03:18 by Cody Man MD) Chronic low back pain Cholelithiasis Elevated d-dimer Elevated troponin Rhabdomyolysis HTN (hypertension) Surgical History No pertinent past surgical history Family History (Updated 03/24/25 @ 14:41 by Humberto Marques MD) Father Prostate cancer Aortic dissection Mother Dementia Lymphoma Social History (Updated 03/24/25 @ 14:42 by Humberto Marques MD) Smoking Status: Unknown if ever smoked Tobacco Type: Cigarettes Smoking End Date: 2014; Preferred Language: Cypriot Communication Ability: Effective Communication Ability Comment: UNABLE TO ANSWER AT THIS TIME R/T AMS Spectrographic Analyst Required: No Beliefs That Will Affect Care: None marital status: Single Current Living Situation: Alone Current Living Situation Comment: [place] current occupational status: employed current occupation: [employer] How many Children do You have: 0 Feels Safe at Home: Yes Assistive Devices: Glasses Allergies Allergies Allergy/AdvReac Type Severity Reaction Status Date / Time codeine AdvReac Unknown CONSTIPATIO Verified 01/06/25 17:07 N Home Meds Home Medications Medication Instructions Recorded Confirmed alendronate 70 mg tablet 70 mg PO WK 01/06/25 03/24/25 irbesartan 150 mg tablet 150 mg PO DAILY 01/06/25 03/24/25 meclizine 25 mg tablet 25 mg PO Q8H 03/24/25 03/24/25 Results & Data (ED) Vital Signs Vital Signs - 24 hr 03/24/25 12:00 03/24/25 12:51 03/24/25 12:54 Temperature 36.8 C 36.7 C Temperature Source Oral Pulse Rate 85 98 H Pulse Rate from SpO2 Sensor Respiratory Rate 21 21 Respiratory Effort / Characteristics Non-Labored Respiratory Depth Normal Respiratory Pattern Regular Blood Pressure 179/113 H 153/129 H Blood Pressure Mean 135 141 Pulse Oximetry 95 95 93 Oxygen Delivery Method Room Air Room Air Room Air Sepsis Recent Fever Within 48 Hours No Sepsis New/Unexplained Change in Mental Status No Sepsis Action Taken by Nursing No Action Required 03/24/25 12:57 03/24/25 13:03 03/24/25 13:03 Temperature 37.1 C 37.2 C Temperature Source Pulse Rate 85 94 H 87 Pulse Rate from SpO2 Sensor 90 88 Respiratory Rate 16 16 Respiratory Effort / Characteristics Respiratory Depth Respiratory Pattern Blood Pressure 174/105 H 174/105 H Blood Pressure Mean 128 128 Pulse Oximetry 93 92 Oxygen Delivery Method Sepsis Recent Fever Within 48 Hours Sepsis New/Unexplained Change in Mental Status Sepsis Action Taken by Nursing 03/24/25 13:12 03/24/25 13:30 03/24/25 13:30 Temperature 37.3 C 37.3 C Temperature Source Pulse Rate 85 95 H Pulse Rate from SpO2 Sensor 89 96 H Respiratory Rate 21 27 H Respiratory Effort / Characteristics Respiratory Depth Respiratory Pattern Blood Pressure 164/102 H 164/102 H Blood Pressure Mean 122 123 Pulse Oximetry 92 95 Oxygen Delivery Method Sepsis Recent Fever Within 48 Hours Sepsis New/Unexplained Change in Mental Status Sepsis Action Taken by Nursing 03/24/25 13:48 03/24/25 14:15 Temperature 37.4 C 37.6 C H Temperature Source Pulse Rate 97 H 104 H Pulse Rate from SpO2 Sensor 103 H 105 H Respiratory Rate 19 24 Respiratory Effort / Characteristics Respiratory Depth Respiratory Pattern Blood Pressure 164/102 H 156/83 H Blood Pressure Mean 122 107 Pulse Oximetry 95 95 Oxygen Delivery Method Sepsis Recent Fever Within 48 Hours Sepsis New/Unexplained Change in Mental Status Sepsis Action Taken by Nursing Laboratory Data Attestation: I reviewed the patient's lab results. 03/24/25 12:18 03/24/25 12:18 Lab Results 03/24/25 03/24/25 03/24/25 Range/Units 12:03 12:13 12:17 WBC (4.8-10.8) K/ul RBC (4.20-5.40) M/uL Hgb (12.0-16.0) g/dl POC Hgb 13.6 (12.0-16.0) g/dl Hct (37.0-47.0) % POC Hct 40 (37-47) % MCV (80.0-100.0) fL MCH (25.0-34.0) pg MCHC (32.0-36.0) g/dL RDW Std Deviation (36.4-46.3) fL RDW Coeff of Laurie (11.5-14.5) % Plt Count (130-400) K/uL MPV (9.4-12.4) fL Immature Gran % (Auto) % Neut % (Auto) % Lymph % (Auto) % [place] % (Auto) % Eos % (Auto) % Baso % (Auto) % Neut # (Auto) (1.40-6.50) K/uL Lymph # (Auto) (1.20-3.40) K/uL [place] # (Auto) (0.11-0.59) K/uL Eos # (Auto) (0.00-0.50) K/uL Baso # (Auto) (0.00-0.20) K/uL Immature Gran # (Auto) (0.01-0.20) K/uL PT (9.0-12.0) Seconds INR (0.9-1.1) APTT (21-31) Seconds PTT Ratio POC Sodium 140 (135-144) mmol/L Sodium (136-145) mmol/L POC Potassium 4.1 (3.3-5.0) mmol/L Potassium (3.5-5.1) mmol/L POC Chloride 105 (101-112) mmol/L Chloride (98-107) mmol/L Carbon Dioxide (21-32) mmol/L POC Total CO2 23 L (24-31) mmol/L Anion Gap (3-11) POC Anion Gap 17.0 (16-25) mmol/L POC BUN 20 H (7-18) mg/dl BUN (6-23) mg/dl Creatinine (0.6-1.2) mg/dl POC Creatinine 0.8 (0.6-1.3) mg/dl Est Cr Clr Drug Dosing eGFR BUN/Creatinine Ratio (10-20) Glucose (70-99(Fasting)) mg/dl POC Glucose 132 H (70-99) mg/dl POC Glucose (other) 129 H (70-99) mg/dl Lactate (0.4-2.0) mmol/L Calcium (8.6-10.3) mg/dl POC Ioniz Calcium Philomena 1.11 L (1.12-1.32) mmol/l Phosphorus (2.5-4.9) mg/dl Magnesium (1.7-2.4) mg/dl Total Bilirubin (0.2-1.0) mg/dl AST (13-39) U/L ALT (7-52) U/L Alkaline Phosphatase (34-104) U/L Total Creatine Kinase (26-192) U/L Troponin I High Sens (0-14) pg/ml Total Protein (6.0-8.3) gm/dl Albumin (3.4-5.0) gm/dl Globulin (2.5-4.0) gm/dl Albumin/Globulin Ratio (0.9-2) Lipase (11-82) U/L Procalcitonin (0-0.5) ng/ml Urine Color Yellow Urine Appearance Clear (Clear) Urine pH 7.0 (4.5-7.5) Ur Specific [place] 1.014 (1.000-1.030) Urine Protein Negative (Negative) Urine Glucose (UA) 1+ H (Negative) Urine Ketones 1+ H (Negative) Urine Blood 1+ H (Negative) Urine Nitrite Negative (Negative) Urine Bilirubin Negative (Negative) Urine Urobilinogen Negative (Negative) Ur Leukocyte Esterase Negative (Negative) Urine WBC (Auto) 0-5 (0-5) /hpf Urine RBC (Auto) 3-5 H (0-2) /hpf U Hyaline Cast (Auto) 0-2 (0-2) /lpf U Epithel Cells (Auto) 0-2 (0-2) /hpf Urine Bacteria (Auto) None Seen (None Seen) Urine Comment Urine Opiates Screen Neg (Neg) Ur Methadone, Qual Neg (Neg) Urine Fentanyl Screen Neg (Neg) Urine Barbiturates Neg (Neg) Ur Phencyclidine (PCP) Neg (Neg) U Amphetamin/Meth Scrn Neg (Neg) MDMA (Ecstasy) Screen Neg (Neg) U Benzodiazepines Scrn Neg (Neg) Ur Cocaine Metabolite Neg (Neg) U Marijuana (THC) Screen Pos H (Neg) Ethyl Alcohol mg/dL (<10.0) mg/dl Blood Type Antibody Screen 03/24/25 03/24/25 03/24/25 Range/Units 12:18 12:20 14:15 WBC 9.95 (4.8-10.8) K/ul RBC 3.99 L (4.20-5.40) M/uL Hgb 13.7 (12.0-16.0) g/dl POC Hgb (12.0-16.0) g/dl Hct 39.3 (37.0-47.0) % POC Hct (37-47) % MCV 98.5 (80.0-100.0) fL MCH 34.3 H (25.0-34.0) pg MCHC 34.9 (32.0-36.0) g/dL RDW Std Deviation 47.0 H (36.4-46.3) fL RDW Coeff of Laurie 13.0 (11.5-14.5) % Plt Count 153 (130-400) K/uL MPV 8.2 L (9.4-12.4) fL Immature Gran % (Auto) 0.3 % Neut % (Auto) 90.7 % Lymph % (Auto) 4.3 % [place] % (Auto) 4.5 % Eos % (Auto) 0.0 % Baso % (Auto) 0.2 % Neut # (Auto) 9.02 H (1.40-6.50) K/uL Lymph # (Auto) 0.43 L (1.20-3.40) K/uL [place] # (Auto) 0.45 (0.11-0.59) K/uL Eos # (Auto) 0.00 (0.00-0.50) K/uL Baso # (Auto) 0.02 (0.00-0.20) K/uL Immature Gran # (Auto) 0.03 (0.01-0.20) K/uL PT 10.3 (9.0-12.0) Seconds INR 0.9 (0.9-1.1) APTT 24 (21-31) Seconds PTT Ratio 0.9 POC Sodium (135-144) mmol/L Sodium 141 (136-145) mmol/L POC Potassium (3.3-5.0) mmol/L Potassium 4.3 (3.5-5.1) mmol/L POC Chloride (101-112) mmol/L Chloride 106 (98-107) mmol/L Carbon Dioxide 25 (21-32) mmol/L POC Total CO2 (24-31) mmol/L Anion Gap 10 (3-11) POC Anion Gap (16-25) mmol/L POC BUN (7-18) mg/dl BUN 18 (6-23) mg/dl Creatinine 0.76 (0.6-1.2) mg/dl POC Creatinine (0.6-1.3) mg/dl Est Cr Clr Drug Dosing Not Reportable eGFR 81.16 BUN/Creatinine Ratio 23.7 H (10-20) Glucose 135 H (70-99(Fasting)) mg/dl POC Glucose (70-99) mg/dl POC Glucose (other) (70-99) mg/dl Lactate 2.4 H* (0.4-2.0) mmol/L Calcium 9.5 (8.6-10.3) mg/dl POC Ioniz Calcium Philomena (1.12-1.32) mmol/l Phosphorus 2.6 (2.5-4.9) mg/dl Magnesium 2.0 (1.7-2.4) mg/dl Total Bilirubin 0.6 (0.2-1.0) mg/dl AST 24 (13-39) U/L ALT 15 (7-52) U/L Alkaline Phosphatase 62 (34-104) U/L Total Creatine Kinase 200 H (26-192) U/L Troponin I High Sens 36.8 H 51.8 H* D (0-14) pg/ml Total Protein 7.4 (6.0-8.3) gm/dl Albumin 4.5 (3.4-5.0) gm/dl Globulin 2.9 (2.5-4.0) gm/dl Albumin/Globulin Ratio 1.6 (0.9-2) Lipase 84 H (11-82) U/L Procalcitonin < 0.02 (0-0.5) ng/ml Urine Color Urine Appearance (Clear) Urine pH (4.5-7.5) Ur Specific [place] (1.000-1.030) Urine Protein (Negative) Urine Glucose (UA) (Negative) Urine Ketones (Negative) Urine Blood (Negative) Urine Nitrite (Negative) Urine Bilirubin (Negative) Urine Urobilinogen (Negative) Ur Leukocyte Esterase (Negative) Urine WBC (Auto) (0-5) /hpf Urine RBC (Auto) (0-2) /hpf U Hyaline Cast (Auto) (0-2) /lpf U Epithel Cells (Auto) (0-2) /hpf Urine Bacteria (Auto) (None Seen) Urine Comment Urine Opiates Screen (Neg) Ur Methadone, Qual (Neg) Urine Fentanyl Screen (Neg) Urine Barbiturates (Neg) Ur Phencyclidine (PCP) (Neg) U Amphetamin/Meth Scrn (Neg) MDMA (Ecstasy) Screen (Neg) U Benzodiazepines Scrn (Neg) Ur Cocaine Metabolite (Neg) U Marijuana (THC) Screen (Neg) Ethyl Alcohol mg/dL < 10.0 (<10.0) mg/dl Blood Type A Positive Antibody Screen NEGATIVE Administered Medications Sodium Chloride (Nss) 1,000 mls @ 100 mls/hr IV .Q10H [facility] Stop: 03/27/25 14:29 Last Admin: 03/25/25 00:12 Dose: 100 mls/hr Documented By: Infusion: 03/25/25 00:12 Dose: Infused Documented By: Admin: 03/24/25 15:04 Dose: 100 mls/hr Documented By: EVERARDO Ampicillin Sodium/Sulbactam Sodium (Unasyn) 3,000 mg in 100 mls @ 200 mls/hr IV Q6H [facility] Stop: 03/31/25 16:59 Last Infusion: 03/24/25 23:29 Dose: Infused Documented By: Admin: 03/24/25 22:46 Dose: 200 mls/hr Documented By: Infusion: 03/24/25 18:44 Dose: Infused Documented By: Admin: 03/24/25 18:05 Dose: 200 mls/hr Documented By: KB Famotidine (Pepcid 20mg Iv Push) 20 mg in 5 mls @ 2.5 mls/min IV Q12H [facility] Stop: 04/23/25 16:59 Last Admin: 03/24/25 18:05 Dose: 2.5 mls/min Documented By: KB Acetaminophen (Ofirmev) 1,000 mg in 100 mls @ 400 mls/hr IV Q8H PRN PRN Reason: pain or fever Stop: 03/27/25 18:07 Last Admin: 03/25/25 03:06 Dose: 400 mls/hr Documented By: Infusion: 03/24/25 19:34 Dose: Infused Documented By: Admin: 03/24/25 18:46 Dose: 400 mls/hr Documented By: KB Doxycycline Hyclate 100 mg/ (Dextrose) 100 mls @ 50 mls/hr IV Q12H MERC[facility] Stop: 03/29/25 18:14 Last Infusion: 03/24/25 21:12 Dose: Infused Documented By: Admin: 03/24/25 18:44 Dose: 50 mls/hr Documented By: KB Levetiracetam (Levetiracetam 500 Mg/5 Ml Vial) 500 mg IV Q12H [facility] Stop: 04/24/25 00:00 Last Admin: 03/24/25 23:21 Dose: 500 mg Documented By: MOY Discontinued Medications Sodium Chloride (Nss) 1,000 mls @ 999 mls/hr IV .Q1H1M ONE Stop: 03/24/25 13:01 Last Infusion: 03/24/25 13:52 Dose: Infused Documented By: Admin: 03/24/25 12:45 Dose: 999 mls/hr Documented By: WILLIE Thiamine HCl 500 mg/ Sodium (Chloride) 55 mls @ 210 mls/hr IV NOW STA Stop: 03/24/25 12:16 Last Infusion: 03/24/25 13:12 Dose: Infused Documented By: Admin: 03/24/25 12:44 Dose: 210 mls/hr Documented By: WILLIE Ioversol (Optiray 320 125ml) 119 ml IV ONCE ONE Stop: 03/24/25 12:35 Last Admin: 03/24/25 12:34 Dose: 119 ml Documented By: BRADEN Levetiracetam (Levetiracetam 500 Mg/5 Ml Vial) 1,000 mg IV NOW STA Stop: 03/24/25 13:36 Last Admin: 03/24/25 13:45 Dose: 1,000 mg Documented By: WILLIE Imaging Data Radiologist's Impression: Abdomen/Pelvis CT 03/24/25 11:[address] WITH IV CONTRAST HISTORY: n/v, dark stool, ams TECHNIQUE: Multiaxial CT images of the abdomen and pelvis were performed following the IV administration of 120 cc of Optiray, A dose lowering technique was utilized adhering to the principles of ALARA. COMPARISON STUDY: 01/06/2025 FINDINGS: ABDOMEN: Liver, gallbladder, spleen, pancreas, and adrenal glands are unremarkable. Kidneys show no hydronephrosis. There are scattered atherosclerotic calcifications. No abdominal aortic aneurysm. Pelvis: Layton catheter is present and the urinary bladder is nondistended. There is urinary bladder wall thickening which likely represents cystitis. Uterus and adnexa are grossly unremarkable. There is minimal sigmoid diverticulosis. No acute diverticulitis. There is mild retained stool. No bowel inflammation or obstruction. No free fluid, free air, or abscess. No enlarged adenopathy. Osseous structures: There is lumbar degenerative disc disease. No acute osseous findings. Stable scoliosis. IMPRESSION: No acute findings. ACT 112: Negative or not required by law. The above report was generated using voice recognition software. It may contain grammatical, syntax or spelling errors. Electronically signed by: Medardo Figueroa M.D. 03/24/2025 1:[address] 03/24/25 11:55 CT SCAN OF THE BRAIN WITHOUT IV CONTRAST CLINICAL HISTORY: Unresponsive. COMPARISON STUDY: Head CT January 06, 2025 TECHNIQUE: Unenhanced axial CT scan of the brain was performed from the vertex to the skull base. A dose lowering technique was utilized adhering to the principles of ALARA. CT DOSE: 2803.45 mGy.cm FINDINGS: This exam is moderately compromised by motion artifact. There are no findings to suggest acute dural sinus thrombosis or acute territorial infarct. No acute intracranial hemorrhage, midline shift or mass effect is present. Ventricular system is normal. Basal cisterns are patent. White matter hypodensities are unchanged and favor small vessel disease. No calvarial fractures are identified although sensitivity is diminished on this exam. IMPRESSION: Moderate motion artifact. No acute intracranial findings. ACT 112: Negative or not required by law. Electronically signed by: Wolf Odonnell M.D. 03/24/2025 12:50 PM Head CTA 03/24/25 11:55 CTA ANGIOGRAPHY OF THE HEAD CLINICAL HISTORY: neuro deficit, acute stroke suspected COMPARISON STUDY: Head CT January 06, 2025. TECHNIQUE: Helical axial images of the head were obtained following uneventful intravenous administration of 119 cc of Optiray. Sagittal and coronal reconstructions were viewed as well as maximal intensity projections on an independent 3-D workstation. Automated exposure control was utilized for the study. A dose lowering technique was utilized adhering to the principles of ALARA. FINDINGS: This exam is mildly compromised given difficulty positioning. Please note that the head CT will be reported separately. The bilateral M1, M2, A1 and A2 segments are patent. There is moderate calcified plaque within the bilateral cavernous carotids without significant stenosis. No intracranial aneurysm is identified. No intracranial vessel occlusion is identified. The posterior circulation is intact. There is persistence of the left posterior cerebral artery. IMPRESSION: 1. No intracranial vessel occlusion identified. No intracranial aneurysm. 2. Exam mildly compromised given difficulty positioning. ACT 112: Negative or not required by law. Electronically signed by: Wolf Odonnell M.D. 03/24/2025 12:55 PM Neck CTA 03/24/25 11:55 CT angio neck with con CLINICAL HISTORY: 74 years-old Female with neuro deficit, acute stroke suspected. Acute strokelike symptoms COMPARISON STUDY: Head CT and CTA head studies of same day, CTA chest 01/06/2025 TECHNIQUE: Following the IV administration of 119 mL of Optiray, CT angiogram of the neck was performed from the aortic arch to the skull base. Images are reviewed in the axial, sagittal, and coronal planes. 3-D MIPS images are created and assessed. IV contrast was administered without complication. All measurements were calculated based on NASCET criteria. A dose lowering technique was utilized adhering to the principles of ALARA. FINDINGS: Fusiform dilation of the ascending thoracic aorta measures 4 cm. There is patency of the innominate and image subclavian arteries. The common carotid arteries are widely patent. [id number] atherosclerosis of the carotid bulbs without significant stenosis. Dominant left vertebral artery. The vertebral arteries are patent bilaterally. Mild multifocal stenoses of the posterior cerebral arteries. Head CT dictated separately. Unremarkable soft tissues. Multilevel degenerative changes of the cervical spine. There are patchy bronchoalveolar opacities noted throughout the imaged right lung. No pneumothorax. Superimposed compression deformity that before, T5 and T6 without retropulsion demonstrated progressive sclerosis compared to the 01/06/2025 study. IMPRESSION: 1. Atherosclerosis without aneurysm, dissection, high-grade stenosis or arterial occlusion identified. 2. Partially imaged patchy right lung opacities suggestive of bronchopneumonia. CTA chest dictated separately. ACT 112: Negative or not required by law. The above report was generated using voice recognition software. It may contain grammatical, syntax or spelling errors. Electronically signed by: Osei Lance M.D. 03/24/2025 1:01 PM Chest CTA 03/24/25 11:59 CT angio chest PE protocol CT DOSE: 2803 HISTORY: ams, hypoxia, r/o PE. TECHNIQUE: Multiple CTA images of the chest were obtained after the intravenous administration of 120 ml Optiray. Coronal and sagittal MIPS were obtained from the axial data set and were submitted for review. All measurements were obtained according to NASCET criteria. A dose lowering technique was utilized adhering to the principles of ALARA. COMPARISON STUDY: 01/06/2025 FINDINGS: There is interval patchy groundglass opacity at the right mid lung with infectious/inflammatory morphology. There is no lobar consolidation or pleural effusion. No pneumothorax. Stable ectasia of the ascending thoracic aorta measuring 4.2 cm diameter. There is no thoracic aortic dissection. Evaluation of the small subsegmental lower lobe pulmonary arterial branches is limited by motion artifact. No pulmonary embolism seen. There is stable cardiomegaly. No pericardial effusion. No acute osseous findings. IMPRESSION: 1. No pulmonary embolism seen. 2. Interval mild patchy groundglass opacity at the right midlung has infectious/inflammatory morphology. ACT 112: Negative or not required by law. The above report was generated using voice recognition software. It may contain grammatical, syntax or spelling errors. Electronically signed by: Medardo Figueroa M.D. 03/24/2025 12:58 PM Discharge Plan Visit Data Chief Complaint: Altered Mental Status ED Provider: Cody Man Discharge Problem: Seizure, Pneumonia, Medical marijuana use, Acute metabolic encephalopathy, Elevated troponin Patient Disposition: Admitted As Inpatient Condition: Serious Discharge Instructions Interventions: ED Discharge Assessment Last Done: 03/24/25 15:40 Discharge Problem: Pneumonia Qualifiers: Pneumonia type: due to unspecified organism Laterality: unspecified laterality Lung location: unspecified part of lung Qualified Code(s): J18.9 - Pneumonia, unspecified organism
[2025-03-24 12:25] LABS: iSTAT Creatinine 0.8 mg/dl (0.6-1.3); iSTAT Hemoglobin 13.6 g/dl (12.0-16.0); iSTAT Ionized Calcium 1.11 mmol/l (1.12-1.32); iSTAT Potassium 4.1 mmol/L (3.3-5.0)
[2025-03-24 12:34] LABS: Hematocrit (blood only) 39.3 % (37.0-47.0); Hemoglobin 13.7 g/dl (12.0-16.0); Mean Corpuscular Hemoglobin 34.3 pg (25.0-34.0); Mean Corpuscular Hgb Conc 34.9 g/dL (32.0-36.0); Mean Corpuscular Volume 98.5 fL (80.0-100.0); Mean Platelet Volume 8.2 fL (9.4-12.4); Platelet Count 153 K/uL (130-400); Red Blood Count 3.99 M/uL (4.20-5.40); White Blood Count 9.95 K/ul (4.8-10.8)
[2025-03-24 12:38] LABS: Appearance Urine Clear (Clear); Bacteria Urine Automated None Seen (None Seen); Bilirubin Urine Negative (Negative); Blood Urine 1+ (Negative); Cast Urine Automated 0-2 /lpf (0-2); Color Urine Yellow; Epithelial Cell Urine Auto 0-2 /hpf (0-2); Glucose Urine UA 1+ (Negative); Ketones Urine 1+ (Negative); Leukocyte Esterase Urine Negative (Negative); Nitrite Urine Negative (Negative); Protein Urine Negative (Negative); Specific Gravity Urine 1.014 (1.000-1.030); Urobilinogen Urine Negative (Negative); WBC Urine Automated 0-5 /hpf (0-5)
[2025-03-24 12:50] LABS: Albumin Level 4.5 gm/dl (3.4-5.0); Anion Gap 10 (3-11); Bilirubin,Total 0.6 mg/dl (0.2-1.0); Calcium 9.5 mg/dl (8.6-10.3); Carbon Dioxide 25 mmol/L (21-32); Chloride 106 mmol/L (98-107); Potassium 4.3 mmol/L (3.5-5.1); Sodium 141 mmol/L (136-145)
[2025-03-24 12:53] LABS: Basophils # (auto) 0.02 K/uL (0.00-0.20); Basophils % (auto) 0.2 %; Immature Granulocytes # (auto) 0.03 K/uL (0.01-0.20); Immature Granulocytes % (auto) 0.3 %; Lymphocytes # (auto) 0.43 K/uL (1.20-3.40); Lymphocytes % (auto) 4.3 %; Monocytes # (auto) 0.45 K/uL (0.11-0.59); Monocytes % (auto) 4.5 %; Neutrophils # (auto) 9.02 K/uL (1.40-6.50); Neutrophils % (auto) 90.7 %
--- NOTE | 2025-03-24 12:53 | CT Scan Report ---
CT SCAN OF THE BRAIN WITHOUT IV CONTRAST CLINICAL HISTORY: Unresponsive. COMPARISON STUDY: Head CT January 06, 2025 TECHNIQUE: Unenhanced axial CT scan of the brain was performed from the vertex to the skull base. A dose lowering technique was utilized adhering to the principles of ALARA. CT DOSE: 2803.45 mGy.cm FINDINGS: This exam is moderately compromised by motion artifact. There are no findings to suggest ac creek dural sinus thrombosis or acute territorial infarct. No acute intracranial hemorrhage, midline sh ift or mass effect is present. Ventricular system is normal. Basal cisterns are patent. White matter hypodensities are unchanged and favor small vessel disease. No calvarial fractures are identified alt rober sensitivity is diminished on this exam. IMPRESSION: Moderate motion artifact. No acute intracranial findings. ACT 112: Negative or not required by law. Electronically signed by: Wolf Odonnell M.D. 03/24/2025 12:50 PM
[2025-03-24 12:55] LABS: Troponin I High Sensitivity 36.8 pg/ml (0-14)
[2025-03-24 12:56] LABS: Alanine Aminotransferase 15 U/L (7-52); Albumin Globulin Ratio 1.6 (0.9-2); Alkaline Phosphatase 62 U/L (34-104); Aspartate Aminotransferase 24 U/L (13-39); BUN Creatinine Ratio 23.7 (10-20); Blood Urea Nitrogen 18 mg/dl (6-23); Creatine Kinase 200 U/L (26-192); Globulin 2.9 gm/dl (2.5-4.0); Glucose 135 mg/dl (70-99(Fasting)); Lipase 84 U/L (11-82); Phosphorus 2.6 mg/dl (2.5-4.9); Total Protein 7.4 gm/dl (6.0-8.3)
--- NOTE | 2025-03-24 12:56 | CT Scan Report ---
CTA ANGIOGRAPHY OF THE HEAD CLINICAL HISTORY: neuro deficit, acute stroke suspected COMPARISON STUDY: Head CT January 06, 2025. TECHNIQUE: Helical axial images of the head were obtained following uneventful intravenous administr ation of 119 cc of Optiray. Sagittal and coronal reconstructions were viewed as well as maximal inten sity projections on an independent 3-D workstation. Automated exposure control was utilized for the study. A dose lowering technique was utilized adhering to the principles of ALARA. FINDINGS: This exam is mildly compromised given difficulty positioning. Please note that the head CT will be reported separately. The bilateral M1, M2, A1 and A2 segments are patent. There is moderate c alcified plaque within the bilateral cavernous carotids without significant stenosis. No intracranial aneurysm is identified. No intracranial vessel occlusion is identified. The posterior circulation is intact. There is persistence of the left posterior cerebral artery. IMPRESSION: 1. No intracranial vessel occlusion identified. No intracranial aneurysm. 2. Exam mildly compromised given difficulty positioning. ACT 112: Negative or not required by law. Electronically signed by: Wolf Odonnell M.D. 03/24/2025 12:55 PM
--- NOTE | 2025-03-24 13:00 | CT Scan Report ---
CT angio chest PE protocol CT DOSE: 2803 HISTORY: ams, hypoxia, r/o PE. TECHNIQUE: Multiple CTA images of the chest were obtained after the intravenous administration of 120 ml Optiray. Coronal and sagittal MIPS were obtained from the axial data set and were submitted for review. All measurements were obtained according to NASCET criteria. A dose lowering technique was u tilized adhering to the principles of ALARA. COMPARISON STUDY: 01/06/2025 FINDINGS: There is interval patchy groundglass opacity at the right mid lung with infectious/inflamma tory morphology. There is no lobar consolidation or pleural effusion. No pneumothorax. Stable ectasia of the ascending thoracic aorta measuring 4.2 cm diameter. There is no thoracic aortic dissection. E valuation of the small subsegmental lower lobe pulmonary arterial branches is limited by motion artif act. No pulmonary embolism seen. There is stable cardiomegaly. No pericardial effusion. No acute osse ous findings. IMPRESSION: 1. No pulmonary embolism seen. 2. Interval mild patchy groundglass opacity at the right midlung has infectious/inflammatory morpholo gy. ACT 112: Negative or not required by law. The above report was generated using voice recognition software. It may contain grammatical, syntax o r spelling errors. Electronically signed by: Medardo Figueroa M.D. 03/24/2025 12:58 PM
[2025-03-24 13:01] LABS: Amphetamines+Metham, Urine Neg (Neg); Barbiturates, Urine Neg (Neg); Benzodiazepine, Urine Neg (Neg); Cocaine, Urine Neg (Neg); Fentanyl, Urine Neg (Neg); MDMA (Ecstacy), Urine Neg (Neg); Marijuana, Urine Pos (Neg); Methadone, Urine Neg (Neg); Opiate, Urine Neg (Neg); Phencyclidine, Urine Neg (Neg)
[2025-03-24 13:02] LABS: INR 0.9 (0.9-1.1); Partial Thromboplastin Ratio 0.9; Partial Thromboplastin Time 24 Seconds (21-31); Prothrombin Time 10.3 Seconds (9.0-12.0)
--- NOTE | 2025-03-24 13:02 | CT Scan Report ---
CT angio neck with con CLINICAL HISTORY: 74 years-old Female with neuro deficit, acute stroke suspected. Acute strokelike symptoms COMPARISON STUDY: Head CT and CTA head studies of same day, CTA chest 01/06/2025 TECHNIQUE: Following the IV administration of 119 mL of Optiray, CT angiogram of the neck was perform ed from the aortic arch to the skull base. Images are reviewed in the axial, sagittal, and coronal pl anes. 3-D MIPS images are created and assessed. IV contrast was administered without complication. Al l measurements were calculated based on NASCET criteria. A dose lowering technique was utilized adhe ring to the principles of ALARA. FINDINGS: Fusiform dilation of the ascending thoracic aorta measures 4 cm. There is patency of the innominate a nd image subclavian arteries. The common carotid arteries are widely patent. [id number] atheros clerosis of the carotid bulbs without significant stenosis. Dominant left vertebral artery. The verte bral arteries are patent bilaterally. Mild multifocal stenoses of the posterior cerebral arteries. Head CT dictated separately. Unremarkable soft tissues. Multilevel degenerative changes of the cervic al spine. There are patchy bronchoalveolar opacities noted throughout the imaged right lung. No pneum othorax. Superimposed compression deformity that before, T5 and T6 without retropulsion demonstrated progressive sclerosis compared to the 01/06/2025 study. IMPRESSION: 1. Atherosclerosis without aneurysm, dissection, high-grade stenosis or arterial occlusion identified . 2. Partially imaged patchy right lung opacities suggestive of bronchopneumonia. CTA chest dictated se parately. ACT 112: Negative or not required by law. The above report was generated using voice recognition software. It may contain grammatical, syntax o r spelling errors. Electronically signed by: Osei Lance M.D. 03/24/2025 1:01 PM
--- NOTE | 2025-03-24 13:12 | CT Scan Report ---
ABDOMEN AND PELVIS CT WITH IV CONTRAST HISTORY: n/v, dark stool, ams TECHNIQUE: Multiaxial CT images of the abdomen and pelvis were performed following the IV administrat ion of 120 cc of Optiray, A dose lowering technique was utilized adhering to the principles of ALARA . COMPARISON STUDY: 01/06/2025 FINDINGS: ABDOMEN: Liver, gallbladder, spleen, pancreas, and adrenal glands are unremarkable. Kidneys show no h ydronephrosis. There are scattered atherosclerotic calcifications. No abdominal aortic aneurysm. Pelvis: Layton catheter is present and the urinary bladder is nondistended. There is urinary bladder w all thickening which likely represents cystitis. Uterus and adnexa are grossly unremarkable. There is minimal sigmoid diverticulosis. No acute diverticulitis. There is mild retained stool. No bowel infl ammation or obstruction. No free fluid, free air, or abscess. No enlarged adenopathy. Osseous structures: There is lumbar degenerative disc disease. No acute osseous findings. Stable scol iosis. IMPRESSION: No acute findings. ACT 112: Negative or not required by law. The above report was generated using voice recognition software. It may contain grammatical, syntax o r spelling errors. Electronically signed by: Medardo Figueroa M.D. 03/24/2025 1:11 PM
--- NOTE | 2025-03-24 14:30 | History & Physical Report ---
Date of Service March 24, 2025 Assessment & Plan (1) Acute metabolic encephalopathy: (2) Seizure: (3) HTN (hypertension): (4) Elevated troponin: (5) Pneumonia: (6) Chronic vertigo: (7) Medical marijuana use: (8) Chronic low back pain: (9) Ascending aortic aneurysm: Plan 74yo female with history of HTN, rhabdomyolysis (hospitalized January 2025 for such), osteoporosis, prior tobacco dependence, and chronic medical THC use who presents from home via EMS due to altered mental status. Based on her history, tongue bite andrei, mildly elevated CPK, etc there is concern for recent seizure with subsequent post-ictal state. #suspected seizure - -s/p IV keppra load 1gm x 1 in the ER -no seizures thus far seen in the ER -CT head negative -CTA head/neck negative for occlusion, aneurysm, etc. -will cont keppra 500mg IV q12h; change to PO once awake/alert/able to swallow -[facility] in am tomorrow - message sent to Dr Hayes -EEG in am -needs MRI brain given the suspected seizure as well as chronic, refractory vertigo -will plan on this tomorrow if out of restraints, can follow commands, etc. -seizure precautions -ativan IV prn breakthrough seizures #right-sided pneumonia - -difficult to say if she had a brewing CAP before the suspected seizure -alternatively perhaps she had an aspiration event in the setting of the suspected seizure or the vomiting she had had this am -check COVID/flu/RSV swab -check blood cx's x 2 sets -start unasyn IV -add doxy for atypical coverage -supportive care #acute metabolic encephalopathy - -2nd to suspected seizure -metabolic effects from pneumonia also likely contributing -supportive care; treat pneumonia; anti-seizure meds -if any worsening agitation/delirium would utilize low-dose antipsychotic prn -of note - patient needed 4-point restraints in the ER due to severe combativeness, etc. -we were able to d/c the lower limb restraints but will continue the arm/wrist restraints and remove them when more awake/alert -restraint order placed for "non-violent" reasons (unable to follow commands, pulling at IVs, etc). #elevated troponin - -likely myocardial demand ischemia in the setting of suspected seizure & right- sided pneumonia -no evidence of ACS -trend until peak is seen #HTN - -hold irbesartan -can use IV lopressor or similar prn #chronic medical THC use - -for chronic low back pain -of note - she is not on chronic narcotics or other controlled medicines at home #ascending aortic aneurysm - -4.2cm in size -can f/u with routine surveillance as outpatient #chronic low back pain - -on medical THC for such -imaging today with lumbar DDD #chronic vertigo of uncertain etiology - -has had such for years per her sister -has associated nausea/vomiting with her vertigo; by history it is brought on by movement -does not have vertigo every day, but has it multiple times each week -etiology uncertain -MRI brain ordered for tomorrow -Neuro consult -once able to take PO can re-order meclizine for prn use #remote h/o illicit drug use (per pt's sister) - -check HepB and HepC titers in am #DVT proph - -add heparin or lovenox tomorrow if labs are stable; defer to rounding hospitalist pt's sister updated at bedside during the admission process she was also updated by phone later in the evening today History of Present Illness Chief Complaint: altered mental status Primary Care Provider: Vitor Jiang, 74yo female with history of HTN, rhabdomyolysis (hospitalized January 2025 for such), osteoporosis, prior tobacco dependence, and chronic medical THC use who presents from home via EMS due to altered mental status. Patient was found by her sister in her bed altered and snoring loudly this morning. Her sister had gone to check on her at her home when Ms Sloan failed to show for work today. When the patient's sister found her there was blood coming from her mouth and she was incontinent of urine. Given the circumstances her sister called 911 and EMS was summoned to her home. Apparently she woke up enough to get to the bathroom and proceeded to vomit several times. Following such she was brought to [facility]. She underwent extensive work-up for stroke and these imaging studies were negative for such. On exam there was an apparent tongue bite on her tongue and therefore a seizure followed by a post-ictal state was suspected. Keppra 1000mg IV x 1 was given. During her ER stay she was combative at times and unable to follow commands therefore restraints (soft limb) were placed. Pt's sister was present during the encounter and provided additional history. She last spoke with Yashira on Saturday evening and at that time she seemed normal. She also texted with Yashira last pm and "she was off a little" based on the text thread but otherwise seemed OK. Her sister stated that Yashira felt well enough yesterday to mow her grass with a push mower. There is no family history of seizures, stroke, brain tumor, etc. Finally, pt's sister commented that she had a recent dental abscess treated with antibiotics and completed that antibiotic course. Allergies Allergy/AdvReac Type Severity Reaction Status Date / Time codeine AdvReac Unknown CONSTIPATIO Verified 01/06/25 17:07 N Home Medications Medication Instructions Recorded Confirmed Type alendronate 70 mg tablet 70 mg PO WK 01/06/25 03/24/25 History irbesartan 150 mg tablet 150 mg PO DAILY 01/06/25 03/24/25 History meclizine 25 mg tablet 25 mg PO Q8H 03/24/25 03/24/25 History Past Med/Surg History Problem List (Updated 03/25/25 @ 03:18 by Cody Man MD) Elevated troponin (Acute) Ascending aortic aneurysm Medical marijuana use (Acute) Chronic vertigo Pneumonia (Acute) Seizure (Acute) Acute metabolic encephalopathy (Acute) Medical History (Updated 03/25/25 @ 03:18 by Cody Man MD) Chronic low back pain Cholelithiasis Elevated d-dimer Elevated troponin Rhabdomyolysis HTN (hypertension) Surgical History No pertinent past surgical history Family History (Updated 03/24/25 @ 14:41 by Humberto Marques MD) Father Prostate cancer Aortic dissection Mother Dementia Lymphoma Social History (Updated 03/24/25 @ 14:42 by Humberto Marques MD) Smoking Status: Unknown if ever smoked Tobacco Type: Cigarettes Smoking End Date: 2014; Preferred Language: Maori Communication Ability: Effective Communication Ability Comment: UNABLE TO ANSWER AT THIS TIME R/T AMS Open Hearth Helper Required: No Beliefs That Will Affect Care: None marital status: Single Current Living Situation: Alone Current Living Situation Comment: [place] current occupational status: employed current occupation: [employer] How many Children do You have: 0 Feels Safe at Home: Yes Assistive Devices: Glasses Review of Systems Review of Systems: Unobtainable due to cognitive status and Unobtainable due to reduced consciousness Physical Exam Physical Exam: gen - shifting around on the gurney, in restraints, not following commands; briefly opens her eyes to her name being called only eyes - PERRL, pupils about 2mm b/l; no obvious nystagmus HENT - mouth - dry MM, bruise on distal right tongue presumably from tongue biting, poor dentition neck - no JVD, no lymph nodes, no goiter CV - tachycardic, s1 s2, no obvious murmur lungs - slightly decreased BS on right, but otherwise CTA b/l; no distress; no wheezes or rales abd - soft NT ND BS+; no HSM musculo - no signs of trauma x 4 limbs skin - no rash neuro - babinski's+ b/l; moving all 4 limbs spontaneously; no obvious facial droop psych - lethargic, oriented to person only Results & Data Results & Data Vital Signs (Past 12 Hours) Vital Signs Temp Pulse Resp BP Pulse Ox O2 Del Method 03/24/25 14:15 37.6 C H 104 H 24 156/83 H 95 03/24/25 13:48 37.4 C 97 H 19 164/102 H 95 03/24/25 13:30 37.3 C 95 H 27 H 95 03/24/25 13:30 164/102 H 03/24/25 13:12 37.3 C 85 21 164/102 H 92 03/24/25 13:03 37.2 C 87 16 174/105 H 92 03/24/25 13:03 94 H 03/24/25 12:57 37.1 C 85 16 174/105 H 93 03/24/25 12:54 93 Room Air 03/24/25 12:51 36.7 C 98 H 21 153/129 H 95 Room Air 03/24/25 12:00 36.8 C 85 21 179/113 H 95 Room Air Laboratory Results Laboratory Results - last 24 hr 03/24/25 03/24/25 03/24/25 12:03 12:13 12:17 WBC RBC Hgb POC Hgb 13.6 Hct POC Hct 40 MCV MCH MCHC RDW Std Deviation RDW Coeff of Laurie Plt Count MPV Immature Gran % (Auto) Neut % (Auto) Lymph % (Auto) Mills % (Auto) Eos % (Auto) Baso % (Auto) Neut # (Auto) Lymph # (Auto) Mills # (Auto) Eos # (Auto) Baso # (Auto) Immature Gran # (Auto) PT INR APTT PTT Ratio POC Sodium 140 Sodium POC Potassium 4.1 Potassium POC Chloride 105 Chloride Carbon Dioxide POC Total CO2 23 L Anion Gap POC Anion Gap 17.0 POC BUN 20 H BUN Creatinine POC Creatinine 0.8 Est Cr Clr Drug Dosing eGFR BUN/Creatinine Ratio Glucose POC Glucose 132 H POC Glucose (other) 129 H Lactate Calcium POC Ioniz Calcium Philomena 1.11 L Phosphorus Magnesium Total Bilirubin AST ALT Alkaline Phosphatase Total Creatine Kinase Troponin I High Sens Total Protein Albumin Globulin Albumin/Globulin Ratio Lipase Procalcitonin Urine Color Yellow Urine Appearance Clear Urine pH 7.0 Ur Specific Milam 1.014 Urine Protein Negative Urine Glucose (UA) 1+ H Urine Ketones 1+ H Urine Blood 1+ H Urine Nitrite Negative Urine Bilirubin Negative Urine Urobilinogen Negative Ur Leukocyte Esterase Negative Urine WBC (Auto) 0-5 Urine RBC (Auto) 3-5 H U Hyaline Cast (Auto) 0-2 U Epithel Cells (Auto) 0-2 Urine Bacteria (Auto) None Seen Urine Comment Urine Opiates Screen Neg Ur Methadone, Qual Neg Urine Fentanyl Screen Neg Urine Barbiturates Neg Ur Phencyclidine (PCP) Neg U Amphetamin/Meth Scrn Neg MDMA (Ecstasy) Screen Neg U Benzodiazepines Scrn Neg Ur Cocaine Metabolite Neg U Marijuana (THC) Screen Pos H U Marijuana THC Carboxy Pending Drug Screen Comment Pending Ethyl Alcohol mg/dL Blood Type Antibody Screen 03/24/25 03/24/25 03/24/25 12:18 12:20 14:15 WBC 9.95 RBC 3.99 L Hgb 13.7 POC Hgb Hct 39.3 POC Hct MCV 98.5 MCH 34.3 H MCHC 34.9 RDW Std Deviation 47.0 H RDW Coeff of Laurie 13.0 Plt Count 153 MPV 8.2 L Immature Gran % (Auto) 0.3 Neut % (Auto) 90.7 Lymph % (Auto) 4.3 Mills % (Auto) 4.5 Eos % (Auto) 0.0 Baso % (Auto) 0.2 Neut # (Auto) 9.02 H Lymph # (Auto) 0.43 L Mills # (Auto) 0.45 Eos # (Auto) 0.00 Baso # (Auto) 0.02 Immature Gran # (Auto) 0.03 PT 10.3 INR 0.9 APTT 24 PTT Ratio 0.9 POC Sodium Sodium 141 POC Potassium Potassium 4.3 POC Chloride Chloride 106 Carbon Dioxide 25 POC Total CO2 Anion Gap 10 POC Anion Gap POC BUN BUN 18 Creatinine 0.76 POC Creatinine Est Cr Clr Drug Dosing Not Reportable eGFR 81.16 BUN/Creatinine Ratio 23.7 H Glucose 135 H POC Glucose POC Glucose (other) Lactate 2.4 H* Calcium 9.5 POC Ioniz Calcium Philomean Phosphorus 2.6 Magnesium 2.0 Total Bilirubin 0.6 AST 24 ALT 15 Alkaline Phosphatase 62 Total Creatine Kinase 200 H Troponin I High Sens 36.8 H Pending Total Protein 7.4 Albumin 4.5 Globulin 2.9 Albumin/Globulin Ratio 1.6 Lipase 84 H Procalcitonin < 0.02 Urine Color Urine Appearance Urine pH Ur Specific Milam Urine Protein Urine Glucose (UA) Urine Ketones Urine Blood Urine Nitrite Urine Bilirubin Urine Urobilinogen Ur Leukocyte Esterase Urine WBC (Auto) Urine RBC (Auto) U Hyaline Cast (Auto) U Epithel Cells (Auto) Urine Bacteria (Auto) Urine Comment Urine Opiates Screen Ur Methadone, Qual Urine Fentanyl Screen Urine Barbiturates Ur Phencyclidine (PCP) U Amphetamin/Meth Scrn MDMA (Ecstasy) Screen U Benzodiazepines Scrn Ur Cocaine Metabolite U Marijuana (THC) Screen U Marijuana THC Carboxy Drug Screen Comment Ethyl Alcohol mg/dL < 10.0 Blood Type A Positive Antibody Screen NEGATIVE Diagnostic Findings Abdomen/Pelvis CT 03/24/25 11:[address] WITH IV CONTRAST HISTORY: n/v, dark stool, ams TECHNIQUE: Multiaxial CT images of the abdomen and pelvis were performed following the IV administration of 120 cc of Optiray, A dose lowering technique was utilized adhering to the principles of ALARA. COMPARISON STUDY: 01/06/2025 FINDINGS: ABDOMEN: Liver, gallbladder, spleen, pancreas, and adrenal glands are unremarkable. Kidneys show no hydronephrosis. There are scattered athe rosclerotic calcifications. No abdominal aortic aneurysm. Pelvis: Layton catheter is present and the urinary bladder is nondistended. There is urinary bladder wall thickening which likely represents cystitis. Uterus and adnexa are grossly unremarkable. There is minimal sigmoid diverticulosis. No acute diverticulitis. There is mild retained stool. No bowel inflammation or obstruction. No free fluid, free air, or abscess. No enlarged adenopathy. Osseous structures: There is lumbar degenerative disc disease. No acute osseous findings. Stable scoliosis. IMPRESSION: No acute findings. ACT 112: Negative or not required by law. The above report was generated using voice recognition software. It may contain grammatical, syntax or spelling errors. Electronically signed by: Medardo Figueroa M.D. 03/24/2025 1:[address] 03/24/25 11:55 CT SCAN OF THE BRAIN WITHOUT IV CONTRAST CLINICAL HISTORY: Unresponsive. COMPARISON STUDY: Head CT January 06, 2025 TECHNIQUE: Unenhanced axial CT scan of the brain was performed from the vertex to the skull base. A dose lowering technique was utilized adhering to the principles of ALARA. CT DOSE: 2803.45 mGy.cm FINDINGS: This exam is moderately compromised by motion artifact. There are no findings to suggest acute dural sinus thrombosis or acute territorial infarct. No acute intracranial hemorrhage, midline shift or mass effect is present. Ventricular system is normal. Basal cisterns are patent. White matter hypodensities are unchanged and favor small vessel disease. No calvarial fractures are identified although sensitivity is diminished on this exam. IMPRESSION: Moderate motion artifact. No acute intracranial findings. ACT 112: Negative or not required by law. Electronically signed by: Wolf Odonnell M.D. 03/24/2025 12:50 PM Head CTA 03/24/25 11:55 CTA ANGIOGRAPHY OF THE HEAD CLINICAL HISTORY: neuro deficit, acute stroke suspected COMPARISON STUDY: Head CT January 06, 2025. TECHNIQUE: Helical axial images of the head were obtained following uneventful intravenous administration of 119 cc of Optiray. Sagittal and coronal reconstructions were viewed as well as maximal intensity projections on an independent 3-D workstation. Automated exposure control was utilized for the study. A dose lowering technique was utilized adhering to the principles of ALARA. FINDINGS: This exam is mildly compromised given difficulty positioning. Please note that the head CT will be reported separately. The bilateral M1, M2, A1 and A2 segments are patent. There is moderate calcified plaque within the bilateral cavernous carotids without significant stenosis. No intracranial aneurysm is identified. No intracranial vessel occlusion is identified. The posterior circulation is intact. There is persistence of the left posterior cerebral artery. IMPRESSION: 1. No intracranial vessel occlusion identified. No intracranial aneurysm. 2. Exam mildly compromised given difficulty positioning. ACT 112: Negative or not required by law. Electronically signed by: Wolf Odonnell M.D. 03/24/2025 12:55 PM Neck CTA 03/24/25 11:55 CT angio neck with con CLINICAL HISTORY: 74 years-old Female with neuro deficit, acute stroke suspected. Acute strokelike symptoms COMPARISON STUDY: Head CT and CTA head studies of same day, CTA chest 01/06/2025 TECHNIQUE: Following the IV administration of 119 mL of Optiray, CT angiogram of the neck was performed from the aortic arch to the skull base. Images are reviewed in the axial, sagittal, and coronal planes. 3-D MIPS images are created and assessed. IV contrast was administered without complication. All measurements were calculated based on NASCET criteria. A dose lowering technique was utilized adhering to the principles of ALARA. FINDINGS: Fusiform dilation of the ascending thoracic aorta measures 4 cm. There is patency of the innominate and image subclavian arteries. The common carotid arteries are widely patent. [id number] atherosclerosis of the carotid bulbs without significant stenosis. Dominant left vertebral artery. The vertebral arteries are patent bilaterally. Mild multifocal stenoses of the posterior cerebral arteries. Head CT dictated separately. Unremarkable soft tissues. Multilevel degenerative changes of the cervical spine. There are patchy bronchoalveolar opacities noted throughout the imaged right lung. No pneumothorax. Superimposed compression deformity that before, T5 and T6 without retropulsion demonstrated progressive sclerosis compared to the 01/06/2025 study. IMPRESSION: 1. Atherosclerosis without aneurysm, dissection, high-grade stenosis or arterial occlusion identified. 2. Partially imaged patchy right lung opacities suggestive of bronchopneumonia. CTA chest dictated separately. ACT 112: Negative or not required by law. The above report was generated using voice recognition software. It may contain grammatical, syntax or spelling errors. Electronically signed by: Osei Lance M.D. 03/24/2025 1:01 PM Chest CTA 03/24/25 11:59 CT angio chest PE protocol CT DOSE: 2803 HISTORY: ams, hypoxia, r/o PE. TECHNIQUE: Multiple CTA images of the chest were obtained after the intravenous administration of 120 ml Optiray. Coronal and sagittal MIPS were obtained from the axial data set and were submitted for review. All measurements were obtained according to NASCET criteria. A dose lowering technique was utilized adhering to the principles of ALARA. COMPARISON STUDY: 01/06/2025 FINDINGS: There is interval patchy groundglass opacity at the right mid lung with infectious/inflammatory morphology. There is no lobar consolidation or pleural effusion. No pneumothorax. Stable ectasia of the ascending thoracic aorta measuring 4.2 cm diameter. There is no thoracic aortic dissection. Evaluation of the small subsegmental lower lobe pulmonary arterial branches is limited by motion artifact. No pulmonary embolism seen. There is stable cardiomegaly. No pericardial effusion. No acute osseous findings. IMPRESSION: 1. No pulmonary embolism seen. 2. Interval mild patchy groundglass opacity at the right midlung has infectious/inflammatory morphology. ACT 112: Negative or not required by law. The above report was generated using voice recognition software. It may contain grammatical, syntax or spelling errors. Electronically signed by: Medardo Figueroa M.D. 03/24/2025 12:58 PM Code Status & VTE Plan Code Status full code per pt's sister, but patient would NOT want prolonged life-saving measures or prolonged mech ventilation/etc. VTE Prophylaxis Plan VTE Prophylaxis will be ordered: Yes PG Care Time/CCT Total # of Minutes Spent Total Time Spent with Patient: Total time spent is greater than 50% in coordination of care (as documented) at patient's floor/unit and/or counseling patient: Coding Level of Care Code 13044 INT INP/OBS CARE 3/75MIN Diagnoses Acute metabolic encephalopathy G93.41 Seizure R56.9 HTN (hypertension) I10 Elevated troponin R79.89 Pneumonia J18.9 Chronic vertigo R42 Medical marijuana use Z79.899 Chronic low back pain M54.50; G89.29 Ascending aortic aneurysm I71.21
[2025-03-24 15:05] LABS: Base Excess VBG -3.3 mEq/L; HCO3 VBG 21 mmol/L; Oxygen Saturation VBG 81.6 %; PCO2 VBG 36 mmHg (38-50); PO2 VBG 49 mmHg; pH VBG 7.38 (7.36-7.41)
[2025-03-24 15:59] LABS: Influenza A virus by PCR Negative (Neg); Influenza B virus by PCR Negative (Neg); RSV by PCR Negative (Neg); SARS CoV2 RNA(COVID-19) Ceph NEGATIVE (Negative)
--- NOTE | 2025-03-25 07:57 | Electroencephalogram ---
EEG Procedure Note Date of Service March 25, 2025 Start / End Times Start Time: 610 End Time: [address] Maruqes History 74 year old with seizure like activity and unresponsive episode 03-24-25 Home Medication List Medication Instructions Recorded Confirmed Type alendronate 70 mg tablet 70 mg PO WK 01/06/25 03/24/25 History irbesartan 150 mg tablet 150 mg PO DAILY 01/06/25 03/24/25 History meclizine 25 mg tablet 25 mg PO Q8H 03/24/25 03/24/25 History Inpatient Medication List Sodium Chloride (Nss) 1,000 mls @ 100 mls/hr IV .Q10H MERCEDES Stop: 03/27/25 14:29 Last Admin: 03/25/25 00:12 Dose: 100 mls/hr Documented By: Infusion: 03/25/25 00:12 Dose: Infused Documented By: Admin: 03/24/25 15:04 Dose: 100 mls/hr Documented By: EVERARDO Ampicillin Sodium/Sulbactam Sodium (Unasyn) 3,000 mg in 100 mls @ 200 mls/hr IV Q6H MERCEDES Stop: 03/31/25 16:59 Last Infusion: 03/25/25 05:02 Dose: Infused Documented By: Admin: 03/25/25 04:06 Dose: 200 mls/hr Documented By: Infusion: 03/24/25 23:29 Dose: Infused Documented By: Admin: 03/24/25 22:46 Dose: 200 mls/hr Documented By: Infusion: 03/24/25 18:44 Dose: Infused Documented By: Admin: 03/24/25 18:05 Dose: 200 mls/hr Documented By: KB Famotidine (Pepcid 20mg Iv Push) 20 mg in 5 mls @ 2.5 mls/min IV Q12H MERCEDES Stop: 04/23/25 16:59 Last Admin: 03/25/25 04:06 Dose: 2.5 mls/min Documented By: Admin: 03/24/25 18:05 Dose: 2.5 mls/min Documented By: KB Acetaminophen (Ofirmev) 1,000 mg in 100 mls @ 400 mls/hr IV Q8H PRN PRN Reason: pain or fever Stop: 03/27/25 18:07 Last Infusion: 03/25/25 03:27 Dose: Infused Documented By: Admin: 03/25/25 03:06 Dose: 400 mls/hr Documented By: Infusion: 03/24/25 19:34 Dose: Infused Documented By: Admin: 03/24/25 18:46 Dose: 400 mls/hr Documented By: KB Doxycycline Hyclate 100 mg/ (Dextrose) 100 mls @ 50 mls/hr IV Q12H MERCEDES Stop: 03/29/25 18:14 Last Admin: 03/25/25 05:39 Dose: 50 mls/hr Documented By: Infusion: 03/24/25 21:12 Dose: Infused Documented By: Admin: 03/24/25 18:44 Dose: 50 mls/hr Documented By: KB Levetiracetam (Levetiracetam 500 Mg/5 Ml Vial) 500 mg IV Q12H MERCEDES Stop: 04/24/25 00:00 Last Admin: 03/24/25 23:21 Dose: 500 mg Documented By: MOY Discontinued Medications Sodium Chloride (Nss) 1,000 mls @ 999 mls/hr IV .Q1H1M ONE Stop: 03/24/25 13:01 Last Infusion: 03/24/25 13:52 Dose: Infused Documented By: Admin: 03/24/25 12:45 Dose: 999 mls/hr Documented By: WILLIE Thiamine HCl 500 mg/ Sodium (Chloride) 55 mls @ 210 mls/hr IV NOW STA Stop: 03/24/25 12:16 Last Infusion: 03/24/25 13:12 Dose: Infused Documented By: Admin: 03/24/25 12:44 Dose: 210 mls/hr Documented By: WILLIE Ioversol (Optiray 320 125ml) 119 ml IV ONCE ONE Stop: 03/24/25 12:35 Last Admin: 03/24/25 12:34 Dose: 119 ml Documented By: BRADEN Levetiracetam (Levetiracetam 500 Mg/5 Ml Vial) 1,000 mg IV NOW STA Stop: 03/24/25 13:36 Last Admin: 03/24/25 13:45 Dose: 1,000 mg Documented By: BRJ Description This is a 21 electrode EEG with a single channel dedicated to limited EKG. The electrodes were placed in accordance with the International 10-20 system. Interpretation The predominant background activity consists of a somewhat irregular 8-9 Hz activity, of up to 50 mV in amplitude,seen symmetrically distributed over the posterior head regions bilaterally. This activity attenuates some with eye- opening and other alerting procedures. Photic stimulation was performed and elicited no change in the background activity and no abnormal responses were seen. Hyperventilation was not perfo rmed. A mild to moderate amount of muscle and movement artifact activity contaminated the recording, yet did not hinder interpretation to any significant degree. Throughout the waking portion of the recording, no focal abnormalities, abnormal slow activity, or potentially epileptogenic discharges were seen. The patient entered the drowsy state and brief periods of stage II sleep with no further activation. In summary, this EEG was normal during wakefulness and light sleep. No focal abnormalities, potentially epileptogenic discharges, or abnormal slow activity were seen. Clinical Correlation The absence of potentially epileptogenic activity does not exclude a seizure disorder, since interictally, EEGs can be normal. Clinical correlation is required. MNP EEG Procedure Codes Indication for Procedure (1) Seizure: Neurology Neurology: 21588 EEG include record awake & sleepy
--- NOTE | 2025-03-25 09:18 | Neurology Consultation ---
Date of Consultation March 25, 2025 Assessment & Plan (1) Seizure: (2) Medical marijuana use: (3) Pneumonia: Plan Patient had an event March 24, where she was found in the morning with altered responsiveness, she had bit her tongue, and had wet the bed. She was confused, lethargic, and had a bifrontal headache. She had vomited several times before coming to the ER. This is certainly consistent with a postictal state after a generalized tonic-clonic seizure. The etiology of this possible seizure is not obvious. The patient had a unresponsive episode with elevated CK in early January 2025. In retrospect this could have been another seizure with postictal state. Possible etiologies for the seizure would include her "medical" marijuana (she has been smoking marijuana joints for anxiety for the last 59 years, which vastly predates any legalization of marijuana). Marijuana itself can give seizures and marijuana batches can be "tainted" with foreign substances which could create seizures. She had a markedly elevated blood pressure on admission. Hypertension can cause encephalopathy, seizures, and headaches. The patient has probable pneumonia on imaging and has an elevated lactate. Pneumonia with or without sepsis can create encephalopathy or result in a seizure. This morning she is doing quite well and has an improved mental status (although she is somewhat fatigued still). She has no focal findings , although toes are upgoing (to plantar stimulation) bilaterally. This could be a postictal residual. Recommendations: 1. Agree with continuing levetiracetam 500 mg twice daily, for now. 2. MRI of the brain with and without contrast. However, the patient is highly claustrophobic and may need significant sedation to get this studywhich I feel is very important in this case. We may need anesthesia to help. 3. Continue antibiotics 4. Consider alternatives to medical marijuana (this is likely going to be very difficult for this patient) for her anxiety. 5. Additional recommendations will be made after the above. 6. After hospitalization she could follow-up with neurology (2 to 3 weeks with neurology PA) Overall, I spent a total 90 minutes with this case including review of records, review of CT films, direct evaluation of the patient at bedside, report generation, and discussion of the case with the patient and RN at bedside, and Dr. Null, including differential diagnosis and treatment options. History of Present Illness Reason for Consultation: Patient is a 74-year-old, who was asked to see at the request of Dr. Marques, for neurologic consultation regarding unresponsive episode, likely seizure Requesting Physician: Dr. Marques Attending Physician: Jj Null DO History of Present Illness This patient has a history of hypertension over the last 5 years on medication. She also has anxiety and smokes 1 joint of medical marijuana each day (and this helps),according to the patient, for 59 years. Patient tells me that she has not changed where she gets the medical marijuana, the type, or the dose. She bought her most recent batch about 2 weeks ago. January 06 she was admitted to the hospital after being found in bed likely 3 days. She had an elevated CK of 1665 and elevated troponin. She was admitted for 2 days and made improvements. CT scan of the head was unremarkable. An MRI apparently was attempted but she was extremely claustrophobic even with a little bit of Ativan. She had no further issues until yesterday. Patient was found by her sister in bed confused on July 25. She apparently did not show up to work. She had varying abilities of responsiveness but was walked to the bathroom. She had incontinence of urine in the bed. She vomited a few times and EMS was called. She arrived to the [facility] emergency room March 24 at 1200 with a temperature of 36.8, pulse 85, respiratory rate 21, blood pressure 179/113, and O2 saturation 97%. On exam she was described as confused and restless with some dried blood in her lips and a contusion on the inferior side of her right anterior tongue. She could follow some commands but was sleepy and confused. She moves all extremities without deficit. Pupils were 2 mm and sluggish. CBC and CHEM profile were largely unremarkable. Glucose was 135. Lactate was 2.4, CK2 100, lipase 84, and troponin 80.7. She had was less than 10. Urinalysis shows no evidence of infection. She was given [address] scan of the head showed no acute changes. CT angiography of the head and neck were unremarkable as well with no vascular anomalies or stenoses. CT angiography of the chest revealed some changes in the right midlung consistent with an probable early pneumonia. There was no evidence of PE CT angiography of the abdomen pelvis was largely unremarkable. The patient has improved mental status this morning and has had no seizure activity overnight. Currently she denies weakness of the limbs, numbness, confusion, vision issues, or a sore tongue. She has a little fatigued and gets a little dizzy with sitting up. She has absolutely no recall events of yesterday until she came to the emergency room. This morning blood pressure was 138/75. She is afebrile. She received a doses Unasyn and doxycycline. She remains on levetiracetam 500 g twice daily. EEG this morning was essentially normal during wakefulness and light sleep. There were no focal abnormalities and no potentially epileptogenic discharges were seen. The patient tells me that she is extremely claustrophobic in the MRI machine Allergies Allergy/AdvReac Type Severity Reaction Status Date / Time codeine AdvReac Unknown CONSTIPATIO Verified 01/06/25 17:07 N Home Medications Medication Instructions Recorded Confirmed Type alendronate 70 mg tablet 70 mg PO WK 01/06/25 03/24/25 History irbesartan 150 mg tablet 150 mg PO DAILY 01/06/25 03/24/25 History meclizine 25 mg tablet 25 mg PO Q8H 03/24/25 03/24/25 History Patient History Medical History Chronic low back pain Cholelithiasis Elevated d-dimer Elevated troponin Rhabdomyolysis HTN (hypertension) Surgical History No pertinent past surgical history Family History (Updated 03/25/25 @ 09:25 by James Hayes MD) Father , in mid 70s Prostate cancer Aortic dissection Mother , age 97 Dementia Lymphoma Social History (Updated 03/25/25 @ 09:27 by James Hayes MD) Smoking Status: Former smoker Tobacco Type: Cigarettes Age Started Using Tobacco: 14; Age Quit Using Tobacco: 48; Smoking End Date: 2014; Hx Alcohol Use: Yes Alcohol type: wine Alcohol Intake Frequency: Monthly or Less Hx Substance Use: Yes Prescribed Medications: Marijuana Prescribed Medications Comment: Smokes 1 joint "medical marijuana" daily for anxiety Substance Use Type Other:: remote cocaine use Preferred Language: [place] Communication Ability: Effective Communication Ability Comment: UNABLE TO ANSWER AT THIS TIME R/T AMS Skein Yarn Dyer Required: No Beliefs That Will Affect Care: None marital status: Single Current Living Situation: Alone Current Living Situation Comment: [place] current occupational status: employed current occupation: [employer] How many Children do You have: 0 Feels Safe at Home: Yes Assistive Devices: Glasses Review of Systems Constitutional: + fatigue and + malaise; no fever and no weakness Eyes: no diplopia, no eye pain and no worsening vision Ear, Nose, Mouth, Throat: no ear pain, no tinnitus, no hearing loss, no dizziness, no snoring, no hoarseness and no dysphagia Respiratory: no cough and no dyspnea Cardiovascular: no chest pain, no palpitations and no lightheadedness Gastrointestinal: no abdominal pain, no nausea and no vomiting Genitourinary: no dysuria, no urinary frequency and no urinary incontinence Musculoskeletal: no back pain, no neck pain, no radicular pain, no joint pain and no myalgia Integumentary: no rash and no lesions Neurologic: + confusion and + memory loss (Before e events of March 24 before she came into the hospital); no gait abnormality, no localized weakness, no generalized weakness, no tingling, no numbness, no tremor(s), no abnormal movements, no headache(s) and no abnormal speech Psychiatric: no depression, no irritability, no anxiety, no difficulty concentrating, no confusion and no hallucinations Endocrine: no fatigue and no flushing Hematologic / Lymphatic: no easy bleeding and no easy bruising Allergy / Immunological: no urticaria and no problem reported Exam (Neuro) Physical Exam: The patient is right-handed. The patient is awake, alert, and attentive. Speech is normal without any aphasia or dysarthria. Mentation and thought processes are intact, with full orientation and normal fund of knowledge, although she seems a little sleepy/tired to me. Mood and affect are normal and appropriate. Appearance and grooming are normal. Short and long-term memory are reasonable to conversation Pupils are 4 mm bilaterally and reactive to light. Extraocular eye muscles are intact without nystagmus. Visual acuity and visual fairchild seem normal grossly to confrontation. There are no deficits to sensation in the face in all 3 distributions of the fifth cranial nerve bilaterally. Corneal reflexes are positive bilaterally. Facial strength and symmetry was normal bilaterally. Hearing seems intact grossly to voice and finger rub bilaterally. Palate moves well without asymmetry. There is normal sternocleidomastoid and trapezius strength bilaterally. Tongue is midline with good strength bilaterally. Neck has a full range of motion without discomfort. There are no cervical bruits bilaterally. Cervical, thoracic, and lumbar spine are nontender to palpation. States sitting up in bed is poor and she feels lightheaded with sitting up With outstretched arms there is no drift. There are no resting, postural, or action tremors. There is no ataxia with finger to nose testing. There is good facility in the hands. No other abnormal involuntary movements are noted. Motor strength is 5/5 diffusely in the arms bilaterally including deltoids, biceps, triceps, brachioradialis, wrist flexors and extensors, knocker out, and intrinsic hand muscles. Motor strength is 5/5 diffusely in the legs bilaterally including hip flexors, quadriceps, hamstrings, gastrocnemius, tibialis anterior, tibialis posterior, and Peroneii muscles bilaterally. Toe extensors are normal and there is good bulk in the extensor digitorum brevis muscles bilaterally. The limbs have good tone without rigidity or spasticity. There is no atrophy noted in the muscles. Muscle bulk is normal, there is no tenderness to palpation, no myotonia to percussion, and no fasciculations seen. Sensory examination is intact to touch and pin throughout all 4 limbs diffusely. Reflexes are 2/4 in the biceps, triceps, brachioradialis, and quadriceps tendons bilaterally. Achilles tendon reflexes are absent bilaterally. Toes are equivocal to upgoing with plantar stimulation bilaterally. Peripheral pulses are present and of normal quality distally in all 4 limbs. There is no peripheral edema noted in the limbs. Results & Data Vital Signs (Past 12 Hours) Vital Signs Temp Pulse Pulse Resp BP Pulse Ox O2 Del Method 03/25/25 07:36 37.4 C 69 18 138/75 96 Room Air 03/25/25 06:31 37.2 C 03/25/25 03:53 37.7 C H 03/25/25 02:44 37.8 C H 87 18 139/84 93 Room Air 03/24/25 22:54 37.8 C H 68 20 147/80 H 95 Room Air 03/24/25 22:01 85 PG Care Time/CCT Total # of Minutes Spent Total Time Spent with Patient: Total time spent is greater than 50% in coordination of care (as documented) at patient's floor/unit and/or counseling patient: Coding Level of Care Code 65206 INT INP/OBS CARE MIN Diagnoses Seizure R56.9 Medical marijuana use Z79.899 Pneumonia J18.9 Laterality: unspecified laterality Lung location: unspecified part of lung Pneumonia type: due to unspecified organism Time Spent (min) 90 (3) Pneumonia Laterality: unspecified laterality Lung location: unspecified part of lung Pneumonia type: due to unspecified organism Qualified Code(s): J18.9 - Pneumonia, unspecified organism
[2025-03-25 10:23] LABS: Calcium 8.5 mg/dl (8.6-10.3); Creatinine Clr Calc Pharmacy 62.3 ml/min; Potassium 3.3 mmol/L (3.5-5.1); Troponin I High Sensitivity 90.2 pg/ml (0-14)
[2025-03-25 10:46] LABS: Hep B Surface Ag with confirm Negative (Negative)
--- NOTE | 2025-03-25 11:47 | Electrocardiogram Report ---
Test Reason : Blood Pressure : */* mmHG Vent. Rate : 88 BPM Atrial Rate : 88 BPM P-R Int : 180 ms QRS Dur : 80 ms QT Int : 362 ms P-R-T Axes : 60 9 70 degrees QTcB Int : 438 ms Sinus rhythm with marked sinus arrhythmia Possible Left atrial enlargement Borderline ECG When compared with ECG of 07-Jan-2025 08:47, T wave amplitude has increased in Lateral leads Confirmed by Severino Tillman ([id number]) on 03/25/2025 11:46:55 AM Referred By: REFERRED SELF Confirmed By: Severino Tillman
--- NOTE | 2025-03-25 12:22 | Hospitalist Progress Note ---
Date of Service March 25, 2025 Assessment & Plan (1) Acute metabolic encephalopathy: (2) Seizure: (3) HTN (hypertension): (4) Elevated troponin: (5) Pneumonia: (6) Chronic vertigo: (7) Medical marijuana use: (8) Chronic low back pain: (9) Ascending aortic aneurysm: Plan 74yo female with history of HTN, rhabdomyolysis (hospitalized January 2025 for such), osteoporosis, prior tobacco dependence, and chronic medical THC use who presents from home via EMS due to altered mental status. Based on her history, tongue bite andrei, mildly elevated CPK, etc there is concern for recent seizure with subsequent post-ictal state. neuro recommended brain MRI w/wo contrast; she's remained on keppra overall plan brain MRI w/wo contrast, c/w keppra for seizure episode f/u o EEG result c/w IV antibiotics for PNA. speech evaluation she' still hypothermia and will monitor her another 24-48 hours #suspected seizure - brain MRI w/wo contrast 03/25 with general c/w keppra, communicated with neurology; Dr. Hayes -no seizures thus far seen in the ER -CT head negative -CTA head/neck negative -will cont keppra 500mg IV q12h; change to PO once awake/alert/able to swallow -EEG in am -seizure precautions -ativan IV prn breakthrough seizures #right-sided pneumonia - ?? aspiration from seizure versus. existing prior to her hospitalization speech evaluation c/w IV unasyn, can switch to augmentin once mentation status improved. #acute metabolic encephalopathy - -2nd to suspected seizure -metabolic effects from pneumonia also likely contributing -supportive care; treat pneumonia; anti-seizure meds agitation episode improving, no longer needing restrain #elevated troponin - -likely myocardial demand ischemia in the setting of suspected seizure & right- sided pneumonia -no evidence of ACS -trend until peak is seen #HTN - -hold irbesartan -can use IV lopressor or similar prn #chronic medical THC use - -for chronic low back pain -of note - she is not on chronic narcotics or other controlled medicines at home #ascending aortic aneurysm - -4.2cm in size -can f/u with routine surveillance as outpatient #chronic low back pain - -on medical THC for such -imaging today with lumbar DDD #chronic vertigo of uncertain etiology - f/u on brain MRI -has had such for years per her sister -has associated nausea/vomiting with her vertigo; by history it is brought on by movement -does not have vertigo every day, but has it multiple times each week -once able to take PO can re-order meclizine for prn use #remote h/o illicit drug use (per pt's sister) - -check HepB and HepC titers in am #DVT proph - -add heparin or lovenox tomorrow if labs are stable; defer to rounding hospitalist pt's sister updated at bedside during the admission process she was also updated by phone later in the evening today Admission and Anticipated Discharge Date Admission Date: March 24, 2025 Subjective no worsening confusion, no headache; no numbness plan for brain MRI under anesthesia at 1pm today; she's been NPO since yesterday spoke with neurology; recommended staying on [facility] Review of Systems Review of Systems: Constitutional: No Weight Change, No Fever, No Chills, No Night Sweats, No Fatigue, No Malaise Cardiovascular: No Chest Pain, No SOB, No PND, No Dyspnea on Exertion, No Orthopnea, Gastrointestinal: No Nausea, No Vomiting, No Diarrhea, No Constipation, No Pain, No Heartburn, No Anorexia, Skin: No Skin Lesions, No Pruritis, No Hair Changes, No Breast/Skin Changes, No Nipple Discharge Neuro: No Weakness, No Numbness, No Paresthesias, No Loss of Consciousness, No Syncope, No Dizziness, No Headache Heme/Lymph: No Bruising, No Bleeding, No Transfusions History, No Lymphadenopathy Endocrine: No Polyuria, No Polydipsia, No Temperature Intolerance Physical Exam Physical Exam: VITALS: Reviewed. WEIGHT/BMI reviewed. GEN: non-toxic appeearing PSYCH: Good Judgment Neuro: no tremor; AAOx2; follow simple command, strenght symmetric -Head: NC/AT; NECK: Supple, with no masses. CV: RRR, no m/r/g. LUNGS: CTAB, no w/r/c. ABD: Soft, NT/ND, NBS, no masses or organomegaly. : N/A EXT: No clubbing, cyanosis, or edema. Results & Data Results & Data Vital Signs (Past 12 Hours) Vital Signs Temp Pulse Resp BP Pulse Ox O2 Del Method 03/25/25 10:55 37.6 C H 69 18 138/80 97 Room Air 03/25/25 07:36 37.4 C 69 18 138/75 96 Room Air 03/25/25 06:31 37.2 C 03/25/25 03:53 37.7 C H 03/25/25 02:44 37.8 C H 87 18 139/84 93 Room Air Laboratory Results 03/24/25 14:46 Aerobic Blood Culture - Pending Blood Anaerobic Blood Culture - Pending 03/24/25 14:20 Aerobic Blood Culture - Pending Blood Anaerobic Blood Culture - Pending 03/25/25 03/25/25 03/25/25 11:18 08:51 08:04 WBC RBC Hgb POC Hgb Hct POC Hct MCV MCH MCHC RDW Std Deviation RDW Coeff of Laurie Plt Count MPV Immature Gran % (Auto) Neut % (Auto) Lymph % (Auto) Wallace % (Auto) Eos % (Auto) Baso % (Auto) Neut # (Auto) Lymph # (Auto) Wallace # (Auto) Eos # (Auto) Baso # (Auto) Immature Gran # (Auto) PT INR APTT PTT Ratio VBG pH VBG pCO2 VBG pO2 VBG HCO3 VBG O2 Saturation VBG Base Excess POC Sodium Sodium 142 POC Potassium Potassium 3.3 L D POC Chloride Chloride 110 H Carbon Dioxide 24 POC Total CO2 Anion Gap 8 POC Anion Gap POC BUN BUN 8 Creatinine 0.73 POC Creatinine Est Cr Clr Drug Dosing 62.3 eGFR 85.18 BUN/Creatinine Ratio 11.0 Glucose 103 H POC Glucose 107 H 96 POC Glucose (other) Lactate Calcium 8.5 L POC Ioniz Calcium Philomena Phosphorus Magnesium Total Bilirubin AST ALT Alkaline Phosphatase Total Creatine Kinase Troponin I High Sens 90.2 H* Total Protein Albumin Globulin Albumin/Globulin Ratio Lipase 12 Procalcitonin Urine Color Urine Appearance Urine pH Ur Specific [place] Urine Protein Urine Glucose (UA) Urine Ketones Urine Blood Urine Nitrite Urine Bilirubin Urine Urobilinogen Ur Leukocyte Esterase Urine WBC (Auto) Urine RBC (Auto) U Hyaline Cast (Auto) U Epithel Cells (Auto) Urine Bacteria (Auto) Urine Comment Urine Opiates Screen Ur Methadone, Qual Urine Fentanyl Screen Urine Barbiturates Ur Phencyclidine (PCP) U Amphetamin/Meth Scrn MDMA (Ecstasy) Screen U Benzodiazepines Scrn Ur Cocaine Metabolite U Marijuana (THC) Screen Ethyl Alcohol mg/dL SARS-CoV-2 (PCR) Hep Bs Antigen Negative Influenza Type A (PCR) Influenza Type B (PCR) RSV (RT-PCR) Blood Type Antibody Screen 03/25/25 03/24/25 03/24/25 02:42 23:13 19:00 WBC RBC Hgb POC Hgb Hct POC Hct MCV MCH MCHC RDW Std Deviation RDW Coeff of Laurie Plt Count MPV Immature Gran % (Auto) Neut % (Auto) Lymph % (Auto) Wallace % (Auto) Eos % (Auto) Baso % (Auto) Neut # (Auto) Lymph # (Auto) Wallace # (Auto) Eos # (Auto) Baso # (Auto) Immature Gran # (Auto) PT INR APTT PTT Ratio VBG pH VBG pCO2 VBG pO2 VBG HCO3 VBG O2 Saturation VBG Base Excess POC Sodium Sodium POC Potassium Potassium POC Chloride Chloride Carbon Dioxide POC Total CO2 Anion Gap POC Anion Gap POC BUN BUN Creatinine POC Creatinine Est Cr Clr Drug Dosing eGFR BUN/Creatinine Ratio Glucose POC Glucose 102 H 122 H 123 H POC Glucose (other) Lactate Calcium POC Ioniz Calcium Philomen[place] Phosphorus Magnesium Total Bilirubin AST ALT Alkaline Phosphatase Total Creatine Kinase Troponin I High Sens Total Protein Albumin Globulin Albumin/Globulin Ratio Lipase Procalcitonin Urine Color Urine Appearance Urine pH Ur Specific [place] Urine Protein Urine Glucose (UA) Urine Ketones Urine Blood Urine Nitrite Urine Bilirubin Urine Urobilinogen Ur Leukocyte Esterase Urine WBC (Auto) Urine RBC (Auto) U Hyaline Cast (Auto) U Epithel Cells (Auto) Urine Bacteria (Auto) Urine Comment Urine Opiates Screen Ur Methadone, Qual Urine Fentanyl Screen Urine Barbiturates Ur Phencyclidine (PCP) U Amphetamin/Meth Scrn MDMA (Ecstasy) Screen U Benzodiazepines Scrn Ur Cocaine Metabolite U Marijuana (THC) Screen Ethyl Alcohol mg/dL SARS-CoV-2 (PCR) Hep Bs Antigen Influenza Type A (PCR) Influenza Type B (PCR) RSV (RT-PCR) Blood Type Antibody Screen 03/24/25 03/24/25 03/24/25 17:13 15:12 15:08 WBC RBC Hgb POC Hgb Hct POC Hct MCV MCH MCHC RDW Std Deviation RDW Coeff of Laurie Plt Count MPV Immature Gran % (Auto) Neut % (Auto) Lymph % (Auto) Wallace % (Auto) Eos % (Auto) Baso % (Auto) Neut # (Auto) Lymph # (Auto) Wallace # (Auto) Eos # (Auto) Baso # (Auto) Immature Gran # (Auto) PT INR APTT PTT Ratio VBG pH VBG pCO2 VBG pO2 VBG HCO3 VBG O2 Saturation VBG Base Excess POC Sodium Sodium POC Potassium Potassium POC Chloride Chloride Carbon Dioxide POC Total CO2 Anion Gap POC Anion Gap POC BUN BUN Creatinine POC Creatinine Est Cr Clr Drug Dosing eGFR BUN/Creatinine Ratio Glucose POC Glucose 115 H POC Glucose (other) Lactate 1.4 Calcium POC Ioniz Calcium Philomena Phosphorus Magnesium Total Bilirubin AST ALT Alkaline Phosphatase Total Creatine Kinase Troponin I High Sens 80.7 H* D Total Protein Albumin Globulin Albumin/Globulin Ratio Lipase Procalcitonin Urine Color Urine Appearance Urine pH Ur Specific [place] Urine Protein Urine Glucose (UA) Urine Ketones Urine Blood Urine Nitrite Urine Bilirubin Urine Urobilinogen Ur Leukocyte Esterase Urine WBC (Auto) Urine RBC (Auto) U Hyaline Cast (Auto) U Epithel Cells (Auto) Urine Bacteria (Auto) Urine Comment Urine Opiates Screen Ur Methadone, Qual Urine Fentanyl Screen Urine Barbiturates Ur Phencyclidine (PCP) U Amphetamin/Meth Scrn MDMA (Ecstasy) Screen U Benzodiazepines Scrn Ur Cocaine Metabolite U Marijuana (THC) Screen Ethyl Alcohol mg/dL SARS-CoV-2 (PCR) NEGATIVE Hep Bs Antigen Influenza Type A (PCR) Negative Influenza Type B (PCR) Negative RSV (RT-PCR) Negative Blood Type Antibody Screen 03/24/25 03/24/25 03/24/25 14:47 14:15 12:20 WBC RBC Hgb POC Hgb Hct POC Hct MCV MCH MCHC RDW Std Deviation RDW Coeff of Laurie Plt Count MPV Immature Gran % (Auto) Neut % (Auto) Lymph % (Auto) Wallace % (Auto) Eos % (Auto) Baso % (Auto) Neut # (Auto) Lymph # (Auto) Wallace # (Auto) Eos # (Auto) Baso # (Auto) Immature Gran # (Auto) PT INR APTT PTT Ratio VBG pH 7.38 VBG pCO2 36 L VBG pO2 49 VBG HCO3 21 VBG O2 Saturation 81.6 VBG Base Excess -3.3 POC Sodium Sodium POC Potassium Potassium POC Chloride Chloride Carbon Dioxide POC Total CO2 Anion Gap POC Anion Gap POC BUN BUN Creatinine POC Creatinine Est Cr Clr Drug Dosing eGFR BUN/Creatinine Ratio Glucose POC Glucose POC Glucose (other) Lactate Calcium POC Ioniz Calcium Philomena Phosphorus Magnesium Total Bilirubin AST ALT Alkaline Phosphatase Total Creatine Kinase Troponin I High Sens 51.8 H* D Total Protein Albumin Globulin Albumin/Globulin Ratio Lipase Procalcitonin < 0.02 Urine Color Urine Appearance Urine pH Ur Specific [place] Urine Protein Urine Glucose (UA) Urine Ketones Urine Blood Urine Nitrite Urine Bilirubin Urine Urobilinogen Ur Leukocyte Esterase Urine WBC (Auto) Urine RBC (Auto) U Hyaline Cast (Auto) U Epithel Cells (Auto) Urine Bacteria (Auto) Urine Comment Urine Opiates Screen Ur Methadone, Qual Urine Fentanyl Screen Urine Barbiturates Ur Phencyclidine (PCP) U Amphetamin/Meth Scrn MDMA (Ecstasy) Screen U Benzodiazepines Scrn Ur Cocaine Metabolite U Marijuana (THC) Screen Ethyl Alcohol mg/dL SARS-CoV-2 (PCR) Hep Bs Antigen Influenza Type A (PCR) Influenza Type B (PCR) RSV (RT-PCR) Blood Type Antibody Screen 03/24/25 03/24/25 03/24/25 12:18 12:17 12:13 WBC 9.95 RBC 3.99 L Hgb 13.7 POC Hgb 13.6 Hct 39.3 POC Hct 40 MCV 98.5 MCH 34.3 H MCHC 34.9 RDW Std Deviation 47.0 H RDW Coeff of Laurie 13.0 Plt Count 153 MPV 8.2 L Immature Gran % (Auto) 0.3 Neut % (Auto) 90.7 Lymph % (Auto) 4.3 Wallace % (Auto) 4.5 Eos % (Auto) 0.0 Baso % (Auto) 0.2 Neut # (Auto) 9.02 H Lymph # (Auto) 0.43 L Wallace # (Auto) 0.45 Eos # (Auto) 0.00 Baso # (Auto) 0.02 Immature Gran # (Auto) 0.03 PT 10.3 INR 0.9 APTT 24 PTT Ratio 0.9 VBG pH VBG pCO2 VBG pO2 VBG HCO3 VBG O2 Saturation VBG Base Excess POC Sodium 140 Sodium 141 POC Potassium 4.1 Potassium 4.3 POC Chloride 105 Chloride 106 Carbon Dioxide 25 POC Total CO2 23 L Anion Gap 10 POC Anion Gap 17.0 POC BUN 20 H BUN 18 Creatinine 0.76 POC Creatinine 0.8 Est Cr Clr Drug Dosing Not Reportable eGFR 81.16 BUN/Creatinine Ratio 23.7 H Glucose 135 H POC Glucose POC Glucose (other) 129 H Lactate 2.4 H* Calcium 9.5 POC Ioniz Calcium Philomena 1.11 L Phosphorus 2.6 Magnesium 2.0 Total Bilirubin 0.6 AST 24 ALT 15 Alkaline Phosphatase 62 Total Creatine Kinase 200 H Troponin I High Sens 36.8 H Total Protein 7.4 Albumin 4.5 Globulin 2.9 Albumin/Globulin Ratio 1.6 Lipase 84 H Procalcitonin Urine Color Yellow Urine Appearance Clear Urine pH 7.0 Ur Specific [place] 1.014 Urine Protein Negative Urine Glucose (UA) 1+ H Urine Ketones 1+ H Urine Blood 1+ H Urine Nitrite Negative Urine Bilirubin Negative Urine Urobilinogen Negative Ur Leukocyte Esterase Negative Urine WBC (Auto) 0-5 Urine RBC (Auto) 3-5 H U Hyaline Cast (Auto) 0-2 U Epithel Cells (Auto) 0-2 Urine Bacteria (Auto) None Seen Urine Comment Urine Opiates Screen Neg Ur Methadone, Qual Neg Urine Fentanyl Screen Neg Urine Barbiturates Neg Ur Phencyclidine (PCP) Neg U Amphetamin/Meth Scrn Neg MDMA (Ecstasy) Screen Neg U Benzodiazepines Scrn Neg Ur Cocaine Metabolite Neg U Marijuana (THC) Screen Pos H Ethyl Alcohol mg/dL < 10.0 SARS-CoV-2 (PCR) Hep Bs Antigen Influenza Type A (PCR) Influenza Type B (PCR) RSV (RT-PCR) Blood Type A Positive Antibody Screen NEGATIVE 03/24/25 12:03 WBC RBC Hgb POC Hgb Hct POC Hct MCV MCH MCHC RDW Std Deviation RDW Coeff of Laurie Plt Count MPV Immature Gran % (Auto) Neut % (Auto) Lymph % (Auto) Wallace % (Auto) Eos % (Auto) Baso % (Auto) Neut # (Auto) Lymph # (Auto) Wallace # (Auto) Eos # (Auto) Baso # (Auto) Immature Gran # (Auto) PT INR APTT PTT Ratio VBG pH VBG pCO2 VBG pO2 VBG HCO3 VBG O2 Saturation VBG Base Excess POC Sodium Sodium POC Potassium Potassium POC Chloride Chloride Carbon Dioxide POC Total CO2 Anion Gap POC Anion Gap POC BUN BUN Creatinine POC Creatinine Est Cr Clr Drug Dosing eGFR BUN/Creatinine Ratio Glucose POC Glucose 132 H POC Glucose (other) Lactate Calcium POC Ioniz Calcium [place] Phosphorus Magnesium Total Bilirubin AST ALT Alkaline Phosphatase Total Creatine Kinase Troponin I High Sens Total Protein Albumin Globulin Albumin/Globulin Ratio Lipase Procalcitonin Urine Color Urine Appearance Urine pH Ur Specific [place] Urine Protein Urine Glucose (UA) Urine Ketones Urine Blood Urine Nitrite Urine Bilirubin Urine Urobilinogen Ur Leukocyte Esterase Urine WBC (Auto) Urine RBC (Auto) U Hyaline Cast (Auto) U Epithel Cells (Auto) Urine Bacteria (Auto) Urine Comment Urine Opiates Screen Ur Methadone, Qual Urine Fentanyl Screen Urine Barbiturates Ur Phencyclidine (PCP) U Amphetamin/Meth Scrn MDMA (Ecstasy) Screen U Benzodiazepines Scrn Ur Cocaine Metabolite U Marijuana (THC) Screen Ethyl Alcohol mg/dL SARS-CoV-2 (PCR) Hep Bs Antigen Influenza Type A (PCR) Influenza Type B (PCR) RSV (RT-PCR) Blood Type Antibody Screen PG Care Time/CCT Total # of Minutes Spent Total Time Spent with Patient: 35 minutes Total time spent is greater than 50% in coordination of care (as documented) at patient's floor/unit and/or counseling patient: Coding Level of Care Code 05189 SUB INP/OBS CARE 2/35MIN Diagnoses Acute metabolic encephalopathy G93.41 Seizure R56.9 HTN (hypertension) I10 Elevated troponin R79.89 Pneumonia J18.9 Laterality: unspecified laterality Lung location: unspecified part of lung Pneumonia type: due to unspecified organism Chronic vertigo R42 Medical marijuana use Z79.899 Chronic low back pain M54.50; G89.29 Ascending aortic aneurysm I71.21 Time Spent (min) 35 (5) Pneumonia Laterality: unspecified laterality Lung location: unspecified part of lung Pneumonia type: due to unspecified organism Qualified Code(s): J18.9 - Pneumonia, unspecified organism
[2025-03-25 13:19] LABS: Act 87 Hepatitis C IgG Screen Prelim Positive (Negative)
--- NOTE | 2025-03-25 13:48 | Anesthesiology Consultation ---
Date of Service March 25, 2025 Assessment & Plan Chart Review Chart Review: Acceptable Risk for Surgery and Patient NOT seen in Pre Admission Testing Consults Requested none ASA ASA3 Proposed Anesthesia Anesthesia Type: MAC Risk / Benefits Reviewed With: PT / POA / Parent / Guardian, Accepts Plan and Informed Consent Obtained History Surgery Operation Date: 03/25/25 11:10 Proposed Procedures p MRI Brain with and without Contrast, with Anesthesia Sedation - Humberto Marques MD Height/Weight Height: 5 ft 4 in Weight: 68.5 kg Allergies Allergy/AdvReac Type Severity Reaction Status Date / Time codeine AdvReac Intermediate CONSTIPATIO Verified 03/25/25 13:05 N Medications Home Medications Medication Instructions Recorded Confirmed Last Taken alendronate 70 mg tablet 70 mg PO WK 01/06/25 03/24/25 12/27/24 irbesartan 150 mg tablet 150 mg PO DAILY 01/06/25 03/24/25 01/05/25 meclizine 25 mg tablet 25 mg PO Q8H 03/24/25 03/24/25 Unknown Active Medications Generic Name Dose Route Start Last Admin Trade Name Freq PRN Reason Stop Dose Admin Sodium Chloride 1,000 mls @ 100 mls/hr 03/24/25 14:30 03/25/25 10:51 Nss IV 03/27/25 14:29 100 mls/hr .Q10H MERCEDES Administration Ampicillin Sodium/Sulbactam Sodium 3,000 mg in 100 mls @ 200 mls/hr 03/24/25 17:00 03/25/25 05:02 Unasyn IV 03/31/25 16:59 Infused Q6H MERCEDES Infusion Famotidine 20 mg in 5 mls @ 2.5 mls/min 03/24/25 17:00 03/25/25 04:06 Pepcid 20mg Iv Push IV 04/23/25 16:59 2.5 mls/min Q12H MERCEDES Administration Acetaminophen 1,000 mg in 100 mls @ 400 mls/hr 03/24/25 18:08 03/25/25 03:27 Ofirmev IV 03/27/25 18:07 Infused Q8H PRN Infusion pain or fever Doxycycline Hyclate 100 mg/ 100 mls @ 50 mls/hr 03/24/25 18:15 03/25/25 08:02 Dextrose IV 03/29/25 18:14 Infused Q12H MERCEDES Infusion Lactated Ringer's 1,000 mls @ 15 mls/hr 03/25/25 13:15 03/25/25 13:37 Lr IV 03/28/25 13:14 Infused .Q24H MERCEDES Infusion Levetiracetam 500 mg 03/25/25 00:00 03/24/25 23:21 Levetiracetam 500 Mg/5 Ml Vial IV 04/24/25 00:00 500 mg Q12H MERCEDES Administration NPO Last Intake of Fluids Comment: per report NPO after Midnight Past Medical History Medical History Chronic low back pain Cholelithiasis Elevated d-dimer Elevated troponin Rhabdomyolysis HTN (hypertension) Exercise / Class Metabolic Activity II 4-5 Yardwork/Stairs/Walk up hill Past Family History Family History (Updated 03/25/25 @ 09:25 by James Hayes MD) Father , in mid 70s Prostate cancer Aortic dissection Mother , age 97 Dementia Lymphoma Past Surgical History Surgical History No pertinent past surgical history Past Anesthesia History No Hx of Anesthesia Complications and No Family Hx of Anesthesia Complications History of PONV No Hx of PONV and No Hx of Motion Sickness Social History Smoking Status: Former smoker Smoking End Date: 2014 Hx Alcohol Use: Yes Alcohol type: wine alcohol intake frequency: a few times a month Hx Substance Use: Yes substance use type: marijuana Substance Use Type Other:: remote cocaine use Physical Exam Vital Signs Last Vital Signs Temp 36.7 C 03/25/25 13:05 Pulse 61 03/25/25 13:05 Resp 20 03/25/25 13:05 BP 130/83 03/25/25 13:05 Pulse Ox 95 03/25/25 13:05 O2 Del Method Room Air 03/25/25 13:05 Constitutional + lethargic ENMT Mouth: no dentition abnormality Thyromental Distance: > or= 3.5 Finger Breadths Mallampati Class: II Neck normal visual inspection Respiratory normal respiratory effort Auscultation: lungs clear to auscultation bilaterally Cardiovascular Rate/Rhythm: regular rate and regular rhythm Psychiatric Orientation: alert and oriented x 3 (oriented x3 but confused as to why she is here or what is happening) Testing Laboratory Results 03/24/25 12:18 03/25/25 08:51 PT 10.3 Seconds (9.0-12.0) 03/24/25 12:18 INR 0.9 (0.9-1.1) 03/24/25 12:18 APTT 24 Seconds (21-31) 03/24/25 12:18 Urine Color Yellow 03/24/25 12:17 Urine Appearance Clear (Clear) 03/24/25 12:17 Urine pH 7.0 (4.5-7.5) 03/24/25 12:17 Ur Specific [place] 1.014 (1.000-1.030) 03/24/25 12:17 Urine Protein Negative (Negative) 03/24/25 12:17 Urine Glucose (UA) 1+ (Negative) H 03/24/25 12:17 Urine Ketones 1+ (Negative) H 03/24/25 12:17 Urine Nitrite Negative (Negative) 03/24/25 12:17 Ur Leukocyte Esterase Negative (Negative) 03/24/25 12:17 Urine WBC (Auto) 0-5 /hpf (0-5) 03/24/25 12:17 Urine RBC (Auto) 3-5 /hpf (0-2) H 03/24/25 12:17 U Hyaline Cast (Auto) 0-2 /lpf (0-2) 03/24/25 12:17 U Epithel Cells (Auto) 0-2 /hpf (0-2) 03/24/25 12:17 Urine Bacteria (Auto) None Seen (None Seen) 03/24/25 12:17 Blood Type A Positive 03/24/25 12:18 Antibody Screen NEGATIVE 03/24/25 12:18 03/25/25 03/25/25 03/25/25 11:18 08:04 02:42 POC Glucose 107 H 96 102 H
--- NOTE | 2025-03-25 13:51 | Communication Note ---
Date of Service: March 25, 2025 patient unable to tolerate brain MRI without significant distress due to severe claustrophobia. she is too confused to offer informed consent, though she does assent to the procedure and sedation. given the strong medical need for the procedure and inability to tolerate it without sedation, i am of the opinion that the benefits of moderate sedation outweigh the risks and that the patient would presumably consent to MRI under sedation in her normal mental state. We will proceed with the procedure after 2 physician consent.
--- NOTE | 2025-03-25 14:41 | Magnetic Resonance Report ---
MRI OF THE BRAIN WITHOUT AND WITH IV CONTRAST SEIZURE PROTOCOL CLINICAL HISTORY: s/p suspected seizure; h/o refractory vertigo COMPARISON STUDY: Head CT and CTA of the head March 24, 2025. TECHNIQUE: Utilizing a 3 Jessi magnet and dedicated coil, multiplanar, multiecho imaging of the brai n was performed pre and postcontrast administration. IV administration of 7 mL of Gadavist contrast was uneventful. Thin cut coronal T2 imaging was performed according to seizure protocol. FINDINGS: This exam is mildly compromised by motion artifact. There are no foci of restricted diffusi on to suggest acute infarct. No acute intracranial hemorrhage, midline shift or mass effect is presen t. Ventricular system is unremarkable. Basal cisterns are patent. Flow-voids for the major intracrani al vessels are present. There is no intracranial mass or pathologic enhancement. Prominence of the ex tra-axial spaces overlying the convexities is due to atrophy. Extensive white matter T2 hyperintense foci suggest small vessel disease. No orbital abnormalities identified. There is no mastoid effusion. There is mild ethmoid sinus mucosal thickening without evidence for acute sinusitis. IMPRESSION: 1. No acute intracranial findings. Mild motion artifact. 2. No intracranial mass or pathologic enhancement. 3. Moderate atrophy. 4. Extensive small vessel disease. ACT 112: Negative or not required by law. Electronically signed by: Wolf Odonnell M.D. 03/25/2025 2:39 PM
[2025-03-25 14:51] LABS: A calco-baum cmplx NotReported Not Detected (NotDetected); Bact fragilis Not Reported Not Detected (NotDetected); Blood Culture Id Panel PCR Panel Negative (NotDetected); C auris Not Reported Not Detected (NotDetected); Calbicans Not Reported Not Detected (NotDetected); Candida glabrata Not Reported Not Detected (NotDetected); Candida krusei Not Reported Not Detected (NotDetected); Cneoformans/gatti Not Reported Not Detected (NotDetected); Cparapsilosis Not Reported Not Detected (NotDetected); Ctropicalis Not Reported Not Detected (NotDetected); E cloacae compx Not Reported Not Detected (NotDetected); Efaecalis Not Reported Not Detected (NotDetected); Efaecium Not Reported Not Detected (NotDetected); Enterobacterales Not Reported Not Detected (NotDetected); Escherichia coli Not Reported Not Detected (NotDetected); H influenzae Not Reported Not Detected (NotDetected); K aerogenes Not Reported Not Detected (NotDetected); Koxytoca Not Reported Not Detected (NotDetected); Kpneumoniae grp Not Reported Not Detected (NotDetected); Lmonocyt Not Reported Not Detected (NotDetected); N meningitidis Not Reported Not Detected (NotDetected); P aeruginosa Not Reported Not Detected (NotDetected); Proteus spp Not Reported Not Detected (NotDetected); Salmonella spp Not Reported Not Detected (NotDetected); Staph lugdunensis Not Reported Not Detected (NotDetected); Staph spp. Not Reported Not Detected (NotDetected); Staphaureus Not Reported Not Detected (NotDetected); Staphepi Not Reported Not Detected (NotDetected); Stenmaltophilia Not Reported Not Detected (NotDetected); Strep agal(GrpB) Not Reported Not Detected (NotDetected); Strep pneum Not Reported Not Detected (NotDetected); Strep pyog (GrpA) Not Reported Not Detected (NotDetected); Strep spp Not Reported Not Detected (NotDetected)
--- NOTE | 2025-03-25 14:57 | Anesthesiology Progress Note ---
Date of Service March 25, 2025 Anesthesia Post Procedure Vital Signs Vital Signs: Temp Pulse Pulse Pulse Resp BP BP 03/25/25 14:50 61 20 139/86 03/25/25 14:40 36.8 C 53 L 17 138/89 03/25/25 14:30 36.0 C L 52 L 17 125/66 03/25/25 13:05 36.7 C 61 20 130/83 03/25/25 10:55 37.6 C H 69 18 138/80 03/25/25 08:00 59 L 03/25/25 07:36 37.4 C 69 18 138/75 03/25/25 06:31 37.2 C 03/25/25 03:53 37.7 C H 03/25/25 02:44 37.8 C H 87 18 139/84 03/24/25 22:54 37.8 C H 68 20 147/80 H 03/24/25 22:01 85 03/24/25 20:17 37.5 C 03/24/25 20:13 37.0 C 83 20 141/104 H 03/24/25 16:49 37.8 C H 20 156/88 H Pulse Ox O2 Del Method O2 Flow Rate 03/25/25 14:50 92 Room Air 03/25/25 14:40 100 Room Air 03/25/25 14:30 100 Oxymask 10 03/25/25 13:05 95 Room Air 03/25/25 10:55 97 Room Air 03/25/25 08:00 03/25/25 07:36 96 Room Air 03/25/25 06:31 03/25/25 03:53 03/25/25 02:44 93 Room Air 03/24/25 22:54 95 Room Air 03/24/25 22:01 03/24/25 20:17 03/24/25 20:13 97 Room Air 03/24/25 16:49 94 Room Air Transfer of Care Handoff Completed per policy Notes Mental Status: alert / awake / arousable Patient Amnestic to Procedure: Yes Nausea / Vomiting: adequately controlled Pain: adequately controlled Airway Patency, RR, SpO2: stable & adequate BP & HR: stable & adequate Hydration State: stable & adequate Anesthetic Complications: no major complications apparent
[2025-03-26 09:05] LABS: Hematocrit (blood only) 34.5 % (37.0-47.0); Hemoglobin 12.1 g/dl (12.0-16.0); Mean Corpuscular Hemoglobin 33.6 pg (25.0-34.0); Mean Corpuscular Hgb Conc 35.1 g/dL (32.0-36.0); Mean Corpuscular Volume 95.8 fL (80.0-100.0); Mean Platelet Volume 8.3 fL (9.4-12.4); Platelet Count 136 K/uL (130-400); RDW Coefficient of Variation 12.7 % (11.5-14.5); RDW Standard Deviation 44.2 fL (36.4-46.3); White Blood Count 5.61 K/ul (4.8-10.8)
[2025-03-26 09:23] LABS: BUN Creatinine Ratio 15.4 (10-20); Calcium 8.3 mg/dl (8.6-10.3)
[2025-03-26 09:31] LABS: Troponin I High Sensitivity 77.7 pg/ml (0-14)
--- NOTE | 2025-03-26 09:37 | Neurology Progress Note ---
Date of Service March 26, 2025 Assessment & Plan (1) Seizure: (2) Medical marijuana use: (3) Pneumonia: Plan Patient had an event March 24, where she was found in the morning with altered responsiveness, she had bit her tongue, and had wet the bed. She was confused, lethargic, and had a bifrontal headache. She had vomited several times before coming to the ER. This is certainly consistent with a postictal state after a generalized tonic-clonic seizure. The etiology of this possible seizure is not obvious. The patient had a unresponsive episode with elevated CK in early January 2025. In retrospect this could have been another seizure with postictal state. Possible etiologies for the seizure would include her "medical" marijuana (she has been smoking marijuana joints for anxiety for the last 59 years, which vastly predates any legalization of marijuana). Marijuana itself can give seizures and marijuana batches can be "tainted" with foreign substances which could create seizures. She had a markedly elevated blood pressure on admission. Hypertension can cause encephalopathy, seizures, and headaches. The patient has probable pneumonia on imaging and has an elevated lactate. Pneumonia with or without sepsis can create encephalopathy or result in a seizure. The patient has extensive (old) small vessel ischemic disease seen on MRI. I have seen individuals who are at risk for seizures with these vascular changes. This morning she is doing quite well and is likely back to baseline. Recommendations: 1. Continue levetiracetam 500 mg twice daily. 2. Consider alternatives to medical marijuana (this is likely going to be very difficult for this patient) for her anxiety. 3. Initiate 81 mg aspirin for prevention of small vessel ischemia 4. Otherwise, I have no further current neurologic testing or treatment recommendations to make at this time 5. Consider follow-up with neurology (2 to 3 weeks with neurology PA) Overall, I spent a total 35 minutes with this case including review of records, review of MRI films, direct evaluation of the patient at bedside, report generation, and discussion of the case with the patient and RN at bedside, and Dr. Null, including differential diagnosis and treatment options. Admission and Anticipated Discharge Date Admission Date: March 24, 2025 Subjective Patient feels well and has had no further problems, pain, or headaches. Nursing reports no further seizures or events MRI of the brain with and without contrast showed moderate to extensive small vessel ischemic disease and mild generalized atrophy. I reviewed these films. CBC and CHEM profile were unremarkable and ammonia was normal at 38. She remains on levetiracetam 500 mg twice daily. Results & Data Vital Signs (Past 12 Hours) Vital Signs Temp Pulse Pulse Resp BP BP Pulse Ox 03/26/25 07:17 57 L 17 152/80 H 95 03/26/25 04:22 37.4 C 57 L 16 150/80 H 94 03/25/25 23:03 36.7 C 63 21 146/80 H 95 03/25/25 21:41 57 L O2 Del Method 03/26/25 07:17 Room Air 03/26/25 04:22 Room Air 03/25/25 23:03 Room Air 03/25/25 21:41 Exam (Neuro) Physical Exam: She is awake and alert. Speech is without aphasia or dysarthria. Mood and affect seem normal appropriate. No processes are intact to conversation. Extraocular eye muscles are intact without nystagmus. There is no facial droop. Tongue is midline. Strength is symmetrical and there are no abnormal movements. PG Care Time/CCT Total # of Minutes Spent Total Time Spent with Patient: Total time spent is greater than 50% in coordination of care (as documented) at patient's floor/unit and/or counseling patient: Coding Level of Care Code 10852 SUB INP/OBS CARE 2/35MIN Diagnoses Seizure R56.9 Medical marijuana use Z79.899 Pneumonia J18.9 Laterality: unspecified laterality Lung location: unspecified part of lung Pneumonia type: due to unspecified organism Time Spent (min) 35 (3) Pneumonia Laterality: unspecified laterality Lung location: unspecified part of lung Pneumonia type: due to unspecified organism Qualified Code(s): J18.9 - Pneumonia, unspecified organism
[2025-03-26 15:36] VITALS: PULSE 57; RESP 18; TEMP 98.2; O2SAT 94
--- NOTE | 2025-03-26 16:00 | Discharge Summary ---
Discharge Summary Date of Service March 26, 2025 Principal Dx & Hospital Course #1 = Principal Diagnosis (1) Seizure: Yashira is a 74 yo woman with PMH of hypertension, aortic aneurysm, anxiety disorder, THC use disorder, smoking on day of admission, she was having confusion, tongue bite, there was concern for seizure event, her CT head and CTA negative for process started on keppra 500 mg BID for seizure prophylaxis. in addition, she was found to has aspiration pneumonia and started on ceftriaxone. on 03/25, she remained somnolence and disoriented. and decision is to keep her NPO and hospitalized she's has MRI w/wo contrast by general anesthesia. her brain MRI negative for acute process but found moderate atrophy. patient was seen by neurology, she was recommended to stay on keppra bID and begin aspirin 81mg for small vessel ischemia plan for begin lipitor 20mg for stroke prevention. on 03/26/2025, she is AAox3; mentation return to baseline. she tolerate diet and was dc home we discussed no driving till cleared by neurology. risk of accident, , disability explained at length (2) Acute metabolic encephalopathy: resolved; related to aspiration PNA and seizure (3) HTN (hypertension): not well controlled she should f/u with PCP consider adding amlodipine 2.5mg and the up-titrate (4) Elevated troponin: no chest pain, no chest tightness related to demand ischemia f/u with cardiology for stress test (5) Pneumonia: (6) Chronic vertigo: (7) Medical marijuana use: (8) Chronic low back pain: (9) Ascending aortic aneurysm: Plan 74yo female with history of HTN, rhabdomyolysis (hospitalized January 2025 for such), osteoporosis, prior tobacco dependence, and chronic medical THC use who presents from home via EMS due to altered mental status. Based on her history, tongue bite andrei, mildly elevated CPK, etc there is concern for recent seizure with subsequent post-ictal state. neuro recommended brain MRI w/wo contrast; she's remained on keppra overall plan dc home on 03/26 with keppra 500 BID f/u with neurology aspirin and lipitor given MRI finding of small vessel ischemia no driving till cleared by neurology augmentin for aspiration pneumonia she's need ambulatory BP monitor given her uncontrolled BP and aortic aneurysm she should f/u with cardiology given her aortic aneurysm and troponin elevation from demand ischemia begin aspirin and statin and may benefit from stress test #suspected seizure - brain MRI w/wo contrast 03/25 with general c/w rolando, communicated with neurology; Dr. Hayes -no seizures thus far seen in the ER -CT head negative -CTA head/neck negative keppra BID 500 no [address] till cleared by neurology #right-sided pneumonia - ?? aspiration from seizure versus. existing prior to her hospitalization speech evaluation c/w IV unasyn, can switch to augmentin once mentation status improved. small vessel ischemia on brain MRI asprin and lipitor f/u with neurolgy #acute metabolic encephalopathy - -2nd to suspected seizure -resolved on 03/26 agitation episode improving, no longer needing restrain resolved; stable for 48 hours #elevated troponin - -likely myocardial demand ischemia in the setting of suspected seizure & right- sided pneumonia -no evidence of ACS -trend until peak is seen #HTN - -hold irbesartan -can use IV lopressor or similar prn #chronic medical THC use - -for chronic low back pain -of note - she is not on chronic narcotics or other controlled medicines at home #ascending aortic aneurysm - -4.2cm in size -can f/u with routine surveillance as outpatient #chronic low back pain - -on medical THC for such -imaging today with lumbar DDD #chronic vertigo of uncertain etiology - f/u on brain MRI -has had such for years per her sister -has associated nausea/vomiting with her vertigo; by history it is brought on by movement -does not have vertigo every day, but has it multiple times each week -once able to take PO can re-order meclizine for prn use #remote h/o illicit drug use (per pt's sister) - -check HepB and HepC titers in am #DVT proph - -add heparin or lovenox tomorrow if labs are stable; defer to rounding hospitalist pt's sister updated at bedside during the admission process she was also updated by phone later in the evening today Notes For Next Care Provider cardiology f/u, may benefit from stress test keppra BID 500mg BID repeat CXR in 5-[address] chest this summer aspirin and statin Medication Changes From Visit began keppra 500 BID aspirin and lipitor added shor term course of augmentin BID for aspiration pneumonia Admission HPI Per Admitting Provider 74yo female with history of HTN, rhabdomyolysis (hospitalized January 2025 for such), osteoporosis, prior tobacco dependence, and chronic medical THC use who presents from home via EMS due to altered mental status. Patient was found by her sister in her bed altered and snoring loudly this morning. Her sister had gone to check on her at her home when Ms Sloan failed to show for work today. When the patient's sister found her there was blood coming from her mouth and she was incontinent of urine. Given the circumstances her sister called 911 and EMS was summoned to her home. Apparently she woke up enough to get to the bathroom and proceeded to vomit several times. Following such she was brought to [facility]. She underwent extensive work-up for stroke and these imaging studies were negative for such. On exam there was an apparent tongue bite on her tongue and therefore a seizure followed by a post-ictal state was suspected. Keppra 1000mg IV x 1 was given. During her ER stay she was combative at times and unable to follow commands therefore restraints (soft limb) were placed. Pt's sister was present during the encounter and provided additional history. She last spoke with Yashira on Saturday evening and at that time she seemed normal. She also texted with Yashira last pm and "she was off a little" based on the text thread but otherwise seemed OK. Her sister stated that Yashira felt well enough yesterday to mow her grass with a push mower. There is no family history of seizures, stroke, brain tumor, etc. Finally, pt's sister commented that she had a recent dental abscess treated with antibiotics and completed that antibiotic course. Discharge Exam VITALS: Reviewed. WEIGHT/BMI reviewed. GEN: Healthy appearing, well-developed, NAD. PSYCH: Good Judgment. AOx3. Normal memory, mood, and affect. HEENT -Head: NC/AT; -Eyes: PERRL, EOMI. No discharge or redness; NECK: Supple, with no masses. CV: RRR, no m/r/g. LUNGS: CTAB, no w/r/c. ABD: Soft, NT/ND, NBS, no masses or organomegaly. : N/A SKIN: Warm, well perfused. No skin rashes or abnormal lesions. MSK: No deformities, Normal gait. EXT: No clubbing, cyanosis, or edema. NEURO: AAox3; normal finger to nose; no slurred speech; 5/5 strength following command able to recite from 10 to 1 backward Discharge Plan Discharge Items Patient Disposition: Home - Home Health Services Reason For Visit: ALTERED MENTAL STATUS, SUSPECTED SEIZURE Discharge Diagnosis: seizure episode, aspiraton pneumonia Condition on Discharge: Serious Activity: Per Instructions section Lifting: Gradually increase as tolerated Bathing: No limitations Exercise/Sports: Rest today Driving/Machine Use: no driving till neurology cleared Non-emergency contact: Primary Care Provider and Neurologist Call non-emergency contact if: your symptoms worsen and your rectal temperature is above 100.4 Follow-up/Referrals: Vitor Jiang, [Primary Care Provider] - Diet: Regular Addtl Attending Provider Instructions: you will remained on seizure medicine (keppra) every 12 hours you will take 6 more days of antibiotics Pending Studies at Discharge: Yes Studies:: f/u with cardiology; echocardiogram Stand-Alone Forms: My [facility], Smoking Cessation Medications and DC Order Prescriptions: New levetiracetam [Keppra] 500 mg tablet 500 mg PO BID 14 Days Qty: 28 0RF amoxicillin-pot clavulanate [Augmentin] 500-125 mg tablet 1 tab PO BID 7 Days Qty: 14 0RF aspirin 81 mg capsule 81 mg PO DAILY 30 Days Qty: 30 0RF atorvastatin [Lipitor] 20 mg tablet 20 mg PO DAILY Qty: 30 0RF Continued meclizine 25 mg tablet 25 mg PO Q8H Rx Instructions: filled 03/08 10 day supply alendronate 70 mg tablet 70 mg PO WK Rx Instructions: filled 12/22/23 84 day supply irbesartan 150 mg tablet 150 mg PO DAILY Rx Instructions: filled 03/08 90 day Discharge Orders: Discharge Order (Routine); Ordered 03/26/25 Ordered By: Jj Viveros/Other Patient Handouts: Pneumonia Community Acquired, Cardiac Nuclear Imaging, ED Seizure, Recurrent (Adult) Admission Data Admit Date/Time: 03/24/25 14:20 Attending Provider: Jj Null Admit Provider: Humberto Marques Primary Care Provider: Vitor Jiang Other Providers: James Hayes; Humberto Marques Hospital Stay Data Consultations 03/24/25 13:35 ED Decision to Admit Stat 03/24/25 16:46 Consult Neurology Routine Procedures Performed Operation Date: 03/25/25 11:10 <No data on this case meets the specified criteria> Diagnostic Imagining Performed 03/24/25 11:55 CT abd pelvis IV con only Stat CT angio head w con Stat CT angio neck with con Stat CT head/brain wo con Stat 03/24/25 11:59 CT angio chest PE protocol Stat 03/25/25 08:00 MR brain seizure wo/w con Routine Pending Results Patient Have Any Pending Studies at Discharge: Yes Discharge Instructions Given to Patient (Per Discharging Provider) you will remained on seizure medicine (keppra) every 12 hours you will take 6 more days of antibiotics Total Time Total Time Spent Total Time Spent (In Minutes): 35 minutes Coding Level of Care Code 94944 INP/OBS DISCH >30 MIN Diagnoses Seizure R56.9 Acute metabolic encephalopathy G93.41 HTN (hypertension) I10 Elevated troponin R79.89 Pneumonia J18.9 Laterality: unspecified laterality Lung location: unspecified part of lung Pneumonia type: due to unspecified organism Chronic vertigo R42 Medical marijuana use Z79.899 Chronic low back pain M54.50; G89.29 Ascending aortic aneurysm I71.21
[2025-03-26 17:52] VITALS: BP 145/73
[2025-03-27 12:52] LABS: Marijuana Quant, GCMS Urine 41 ng/mL (<5)
== END 2025-03-26 18:15 | disposition home or self-care (01) ==
LOC: ED 11:41 → 2E 14:20 → SUATTDRO 14:20 → 2E 15:40